=== PATIENT | male | born 1945 | race Caucasian/White ===

== ENCOUNTER 2018-01-24 10:54 | Inpatient (IN) | payer OTHER, MEDICARE ==
[~2018-01-24] VITALS: Ht 185.4 cm; Wt 83.7 kg
[~2018-01-24 10:54] MED LIST: ALBUTEROL2.5 MG/3 M INH/SOL; ASPIRIN81 M4 PO; BENICAR HCT 401 EAC1 PO; CENTRUM SILVER1 EAC1 PO; CITRACAL + D M1 EACH; COSAMIN ASU CA1 EAC1 PO; CRESTOR10 M1 PO; GABAPENTIN600 M1 PO; LOVAZA1 G1 PO; MAGNESIUM500 M2 PO; METANX CAPSULE1 EACH PO; METFORMIN HCL500 M3 PO; PANTOPRAZOLE SO40 M1 PO; PLAVIX75 M1 PO; PREDNISONE10 M2 PO; REQUIP4 MG PO; SPIRIVA RESPIMAT4 GM PO; TRAZODONE HCL50 M1 PO; ZITHROMAX250 M2 PO; ZOLPIDEM TARTRA10 M1 PO
[2018-01-24] MEDS ORDERED: VALSARTAN-HCTZ1 EAC3 PO (12:03)
[2018-01-24] MEDS ORDERED: FERROUS SULFAT325 M3 PO (12:05)
[2018-01-24] MEDS ORDERED: BACLOFEN10 M1 PO (12:06)
[2018-01-24 12:07] LABS: ABSOLUTE BASOPHIL COUNT 0 /CUMM (0.0-0.2); ABSOLUTE EOSINOPHIL COUNT 0 /CUMM (0.0-0.7); ABSOLUTE GRANULOCYTE CT 11.5 /CUMM (1.4-6.5); ABSOLUTE LYMPH COUNT 0.3 /CUMM (1.2-3.4); ABSOLUTE MONOCYTE COUNT 0.4 /CUMM (0.10-0.60); BASOPHIL % 0.1 % (0.0-2.0); EOSINOPHIL % 0 % (0-5); GRANULOCYTE % 94.8 % (42.2-75.2); HEMATOCRIT 34.2 % (42-52); MEAN CORPUSCULAR HGB 30.2 PG (27.0-31.0); MEAN CORPUSCULAR HGB CONC 33.4 G/DL (33.0-37.0); MEAN CORPUSCULAR VOLUME 90.3 FL (80.0-94.0); PLATELET COUNT 167 /CUMM (130-400); RED BLOOD CELL CT 3.78 /CUMM (4.70-6.10); WHITE BLOOD CELL COUNT 12.2 /CUMM (4.8-10.8)
[2018-01-24] MEDS ORDERED: CLONAZEPAM1 M2 PO (12:07)
[2018-01-24] MEDS ORDERED: TAMSULOSIN HCL0.4 M1 PO (12:07)
[2018-01-24] MEDS ORDERED: ATROVENT HFA12.9 GM PO (12:08)
[2018-01-24] MEDS ORDERED: SYMBICORT 16010.2 GM INH (12:08)
--- NOTE | 2018-01-24 12:22 | RADIOLOGY REPORT ---
EXAMINATION: XR CHEST CLINICAL INFORMATION: Pneumonia. Sent by walk-in COMPARISON: 07/09/2016 TECHNIQUE: 2 views of the chest were obtained. FINDINGS: There is right middle lobe airspace consolidation just inferior to the right minor fissure, superimposed on a background of diffuse coarse interstitial prominence, possibly chronic. Lungs are hyperexpanded with flattening of the diaphragms consistent with emphysema. No pleural effusion or pneumothorax. IMPRESSION: Right middle lobe consolidation consistent with pneumonia. Recommend follow-up after treatment to confirm resolution. Findings of emphysema and likely chronic bronchitis.
--- NOTE | 2018-01-24 13:01 | ED GENERAL ADULT ---
History of Present Illness General Chief Complaint: Upper Respiratory Sx/Fever Stated Complaint: SENT BY WALK IN FOR PNA Source: patient, family Exam Limitations: no limitations Allergies Coded Allergies: No Known Allergies (01/24/18) Reconcile Medications Albuterol Sulfate 2.5 MG/3 ML (0.083 %) VIAL.NEB 1 Vial INH/SHIVANI TID PRN copd Aspirin (Aspirin*) 81 MG TAB.CHEW 81 MG PO DAILY HEART (Reported) Baclofen 10 MG TABLET 1 TAB PO QPM MUSCLE SPASMS (Reported) Budesonide/Formoterol Fumarate (Symbicort 160-4.5 Mcg Inhaler) 160 MCG-4.5 MCG/ ACTUATION HFA.AER.AD 2 PUF INH BID BREATHING PROBLEMS (Reported) Clonazepam 1 MG TABLET 1 TAB PO BIDP PRN ANXIETY (Reported) Clopidogrel Bisulfate (Plavix) 75 MG TABLET 1 TAB PO DAILY HEART (Reported) Ferrous Sulfate 325 MG (65 MG IRON) TABLET 1 TAB PO DAILY IRON, VITAMIN ( Reported) Gabapentin 600 MG TABLET 1 TAB PO TID NEUROPATHY (Reported) Ipratropium Homer (Atrovent Hfa) 17 MCG/ACTUATION HFA.AER.AD 2 PUFF PO 4 TIMES/DAY BREATHING PROBLEMS (Reported) Metformin HCl 500 MG TABLET 500 MG PO BID BLOOD SUGAR (Reported) Pantoprazole Sodium 40 MG TABLET.DR 40 MG PO DAILY ACID REFLUX (Reported) Prednisone 10 MG TABLET 1 TAB PO AD copd On Take 07/11/16-07/13/16 40 MG 07/14/16-07/16/16 30 MG 07/17/16-07/19/16 20 MG 07/20/16-07/22/16 10 MG Then Stop Rosuvastatin Calcium (Crestor) 10 MG TABLET 10 MG PO 3XW CHOLESTEROL ( Reported) Tamsulosin HCl 0.4 MG CAP.ER.24H 1 CAP PO DAILY PROSTATE (Reported) Tiotropium Homer (Spiriva Respimat) 2.5 MCG/ACTUATION MIST.INHAL 1 PUFF PO DAILY PRN SHORTNESS OF BREATH (Reported) Valsartan/Hydrochlorothiazide (Valsartan-Hctz 320-25 MG Tab) 320 MG-25 MG TABLET 1 TAB PO DAILY HEART (Reported) Zolpidem Tartrate 10 MG TABLET 10 MG PO QPMP PRN SLEEP (Reported) Triage Note: PT TO ED FOR C/C OF SOB, PRODUCTIVE COUGH WITH GREEN SPUTUM, CHEST PAIN (MORE WITH COUGHING). PT DIAGNOSED WITH PNA AT WALK IN CLINIC BEFORE ARRIVAL. HYPOXIC IN TRIAGE 87-90% ON RA. TACHYCARDIC. PT ALSO REPORTS THAT HE HAS SWELLING TO GROIN AREA CHRONICALLY FROM A PREVIOUS PROCEDURE. Triage Nurses Notes Reviewed? 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 Was seen at a walk in earlier today and dx with PNA, sent to the ER for evaluation. On arrival pt is hypoxic to 87% on RA, improved to mid 90's on 3L NC. Denies fevers or sick contacts. Pt is currently visiting from [place]. (Violeta LEÓN,Danielle) Vital Signs & Intake/Output Vital Signs & Intake/Output Vital Signs Date Time Temp Pulse Resp B/P B/P Pulse O2 O2 Flow FiO2 Mean Ox Delivery Rate 01/27 0000 92 Nasal 4.0L Cannula 01/27 0000 98.4 114 22 150/80 92 Nasal 4.0L Cannula 01/26 2051 97.1 127 21 161/99 01/26 2000 97 Nasal 3.0L Cannula 01/26 2000 90 Nasal 3.0L Cannula 01/26 1710 93 Nasal 3.0L Cannula 01/26 1600 97 Nasal 3.0L Cannula 01/26 1600 97.5 116 23 128/70 98 Nasal 3.0L Cannula 01/26 1200 99 Nasal 3.0L Cannula 01/26 0936 118 135/72 01/26 0936 116 135/72 01/26 0850 96 Nasal 3.0L Cannula 01/26 0800 Nasal 3.0L Cannula 01/26 0800 97.3 118 22 118/60 98 Nasal 3.0L Cannula 01/26 0400 96 Nasal 3.0L Cannula ED Intake and Output 01/27 0000 01/26 1200 Intake Total 2547 343 Output Total 900 650 Balance 1647 -307 Intake, IV 1607 243 Intake, Oral 940 100 Output, Urine 900 650 Patient 165 lb Weight (Radha TOVAR,Александр Grover) Past History Travel History Traveled to [place] past 21 day No Medical History Any Pertinent Medical History? 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 rotator cuff tear, ankle injury Psychosocial History Who do you live with Spouse Services at Home None What is your primary language [place] Tobacco Use: Quit >30 days ago Family History Hx Contributory? No (Danielle Harrington) Review of Systems Review of Systems Constitutional: Reports: no symptoms. EENTM: Reports: no symptoms. Respiratory: Reports: see HPI. Cardiovascular: Reports: see HPI. GI: Reports: no symptoms. Genitourinary: Reports: no symptoms. Musculoskeletal: Reports: no symptoms. Skin: Reports: no symptoms. Neurological/Psychological: Reports: no symptoms. Hematologic/Endocrine: Reports: no symptoms. Immunologic/Allergic: Reports: no symptoms. All Other Systems: Reviewed and Negative (Danielle Harrington) Physical Exam Physical Exam General Appearance: well developed/nourished, no apparent distress, alert, awake Head: atraumatic, normal appearance Eyes: Bilateral: normal appearance. Ears, Nose, Throat: normal ENT inspection Neck: normal inspection Respiratory: rhonchi (right sided), no wheezes Cardiovascular: regular rate/rhythm Gastrointestinal: soft, non-tender, ecchymosis to bilateral flanks (pt reports from recent surgery), vertical linear surgical scar to right groin appears to be healing well, no purulent drainage or surrounding erythema. Extremities: normal inspection Neurologic/Psych: awake, alert, oriented x 3, normal gait, normal mood/affect Skin: intact, warm/dry Core Measures ACS in differential dx? Yes CVA/TIA Diagnosis: No Sepsis Present: No Sepsis Focused Exam Completed? No (Danielle Harrington) Progress Differential Diagnoses I considered the following diagnoses in my evaluation of the patient: [PNA vs respiratory failure vs ACS, low concern for PE] Initial ED EKG: rhythm (sinus tach), rate (120's), ST depression (V4 and V5, unchanged) (Violeta LEÓN,Danielle) Plan of Care: Orders Procedure Date/time Status ICU LAB BUNDLE 01/27 0500 Active CBC WITHOUT DIFFERENTIAL 01/27 0500 Active TROPONIN LEVEL 01/27 0200 Complete EKG 01/27 0200 Active TROPONIN LEVEL 01/26 2010 Complete EKG 01/26 2004 Active CBC WITHOUT DIFFERENTIAL 01/26 1400 Complete Lab Add-on Test 01/26 0924 Active LOWER RESPIRATORY CULTURE 01/26 09 Active PARTIAL THROMBOPLASTIN TIME 01/26 08 Complete TROPONIN LEVEL 01/26 06 Complete PRE-ALBUMIN 01/26 06 Complete THERAPIST ORDERS 01/26 UNK Complete Isolation 01/26 UNK Complete Hemoccult 01/26 UNK Active MISSING MEDICATION FORM 01/26 UNK Active Current Medications Sig/Casey Start time Last Medication Dose Stop Time Status Admin Zolpidem Tartrate 10 MG QPM PRN 01/27 0015 AC 01/27 (Ambien) 0023 Metoprolol Tartrate 12.5 MG BID 01/26 2100 AC 01/26 (Lopressor) 205 Enoxaparin Sodium 40 MG DAILY 01/26 1347 AC 01/26 (Lovenox) 1427 Magnesium Oxide 400 MG DAILY 01/26 0900 AC 01/26 (Mag-Ox) 0936 Melatonin 5 MG AT BEDTIME 01/25 2215 AC 01/26 (Melatonin) 205 Atorvastatin Calcium 20 MG 1700 01/25 1700 AC 01/26 (Lipitor) 1652 Ceftazidime 2,000 MG Q12H 01/25 1600 AC 01/26 (Fortaz) 1652 Vancomycin HCl 1,250 MG Q24H 01/25 1000 AC 01/26 Sodium Chloride 250 ML 1103 (Normal Saline 0.9%) Azithromycin 500 MG DAILY 01/25 0918 AC 01/26 (Zithromax) 0932 Sodium Chloride 250 ML (Normal Saline 0.9%) Tamsulosin HCl 0.4 MG DAILY 01/25 0900 AC 01/26 (Flomax) 0936 Insulin Aspart 0 TIDAC 01/25 0800 AC (NovoLOG) Sodium Chloride 1,000 ML Q8H 01/24 2345 AC 01/26 (Normal Saline 0.9%) 0938 Baclofen 10 MG QPM 07/13 2100 AC 01/26 (Lioresal 10MG 2050 Tablet) Budesonide/ 2 PUF BID 01/24 2100 AC 01/26 Formoterol Fumarate 2050 (Symbicort) Albuterol Sulfate 3 ML EVERY 4 HRS/AWAKE 01/25 2000 AC 01/26 (Proventil) 1955 Ipratropium Homer 2.5 ML EVERY 4 HRS/AWAKE 01/25 2000 AC 01/26 (Atrovent) 1955 Tiotropium Homer 1 PUF DAILY 01/24 171 AC 01/26 (Spiriva) 1015 Gabapentin 600 MG Q8 01/24 170 AC 01/26 (Neurontin) 213 Clopidogrel Bisulfate 75 MG DAILY 01/24 160 AC 01/26 (Plavix) 0936 Aspirin 81 MG DAILY 01/24 160 AC 01/26 (Aspirin) 0935 Acetaminophen 650 MG Q6PRN PRN 01/24 134 AC (Tylenol) Acetaminophen 1,000 MG Q6P PRN 01/24 1345 AC 01/25 (Ofirmev) 1856 N/A 1 UNIT (No Carrier) Morphine Sulfate 1 MG Q8P PRN 01/24 1345 AC 01/26 (MORPHINE SULFATE) 2011 Laboratory Tests 01/27/18 0130: Troponin I 0.63 *H 01/26/187: Troponin I 0.73 *H 01/26/181999: APTT Cancelled 01/26/18 1434: CBC w Diff NO MAN DIFF REQ, RBC 2.77 L, MCV 91.0, MCH 30.1, MCHC 33.0, RDW 18.6 H, MPV 10.1, Gran % 89.7 H, Lymphocytes % 4.8 L, Monocytes % 4.6, Eosinophils % 0.8, Basophils % 0.1, Absolute Granulocytes 10.9 H, Absolute Lymphocytes 0.6 L, Absolute Monocytes 0.6, Absolute Eosinophils 0.1, Absolute Basophils 0 01/26/18 0754: APTT 64 H 01/26/18 0600: Troponin I Cancelled 01/26/18 0600: Anion Gap 10, Estimated GFR > 60, Glucose 107 H, Calcium 7.3 L, Phosphorus 2.6 , Magnesium 1.9, Total Bilirubin 0.5, AST 31, ALT 45, Troponin I 0.70 *H, Albumin 2.6 L, Prealbumin 12.9 L, CBC w Diff NO MAN DIFF REQ, RBC 2.73 L, MCV 90.9, MCH 30.3, MCHC 33.3, RDW 19.7 H, MPV 9.3, Gran % 87.4 H, Lymphocytes % 5.8 L, Monocytes % 5.1, Eosinophils % 1.6, Basophils % 0.1, Absolute Granulocytes 10.2 H, Absolute Lymphocytes 0.7 L, Absolute Monocytes 0.6, Absolute Eosinophils 0.2, Absolute Basophils 0 Microbiology 01/26 1434 LOWER RESP: Respiratory Culture - RES 01/26 1434 LOWER RESP: Gram Stain - RES Pt febrile rectally, labs show leukocytosis to 12, CXR shows rigfht middle lobe PNA. Covered with ceftriaxone and azithromycin, lactic acid 2.5, BC's sent. EKG shows ST depressions in V3 and V4, unchanged from prior, trop elevated to 0.39. Discussed with cardiology, elevaterd troponin likely 2/2 demand ichemia from previous hypoxia, pt's CP is pleuritic and clinically correlates to his PNA location, low concern for ACS and therefore AC was held. Upon in person eval by cardiology decision was made to begin heparin. Discussed with hospitalist and will admit to tele. (Danielle Harrington) (Radha TOVAR,Александр Grover) Departure Departure Disposition: STILL A PATIENT Condition: Stable Clinical Impression Primary Impression: Pneumonia Secondary Impressions: Acute hypoxemic respiratory failure, NSTEMI (non-ST elevated myocardial infarction) Referrals: Patient Has No Primary Care Dr (PCP/Family) Departure Forms: Customer Survey General Discharge Information Admission Note Spoke With: Ignacio Sánchez MD Documentation of Exam: Documentation of any treatments & extenuating circumstances including Concerns Regarding Discharge (functional status, medication knowledge or non-compliance, living conditions, etc.) that warrant an admission rather than observation: [HD monitoring, tele monitoring, serial EKG's, serial trop's, IV anticoagulation, cardiology consult, supplemental oxygen, IV abx, f/u CXR's] (Danielle Harrington) PA/ST[facility] HAND Co-Sign Statement Statement: ED Attending supervision documentation- [X] I saw and evaluated the patient. I have also reviewed all the pertinent lab results and diagnostic results. I agree with the findings and the plan of care as documented in the PA's/ST[employer] HAND's documentation. Patient presents for evaluation of right-sided chest pain congested cough. Physical examination reveals an uncomfortable appearing gentleman with scattered rhonchi on lung examination. [] I have reviewed the ED Record and agree with the PA's/ST[facility] M[employer] HAND's documentation. [] Additions or exceptions (if any) to the PAs/ST[facility] HAND's note and plan are summarized below: [] (Radha TOVAR,Александр Gorver) Critical Care Note Critical Care Note Critical Care Time: 30-74 min (Violeta LEÓN,Danielle)
--- NOTE | 2018-01-24 13:40 | History & Physical ---
Jacob Hernandez 01/24/18 1340: General Information and HPI MD Statement: I have seen and personally examined ADOLFO SERRANO and documented this H&P. The patient is a 72 year old M who presented with a patient stated chief complaint of [shortness of breath with chest pain]. Source of Information: patient, family () Exam Limitations: no limitations History of Present Illness: Patient is a 72 year old male with history of COPD, PAD, Diabetes mellitus, HTN and hyperlipidemia who arrived to the ED complaining of shortness of breath, chest pain and cough. The patient began feeling short of breath 2 days ago after traveling by plane from [place] to visit family in [place]. His shortness of breath became progressively worse and upon experiencing severe, sharp, stabbing chest pain in his right chest, near the nipple, he sought treatment in the ED. Prior to traveling, the patient had recently been discharged from a hospital in [place], following "roto-rooting the arteries in my legs", which led to the complication of scrotal edema and varicocele and subsequent hospitalization. The patient also complained of a productive cough with "gunk coming up" at times in large amounts of mucus, but did not report fever or chills. The chest pain was worsening since arrival to the ED, and the pain increased upon inspiration. Allergies/Medications Allergies: Coded Allergies: No Known Allergies (01/24/18) Home Med list Albuterol Sulfate 2.5 MG/3 ML (0.083 %) VIAL.NEB 1 Vial INH/SHIVANI TID PRN copd Aspirin (Aspirin*) 81 MG TAB.CHEW 81 MG PO DAILY HEART (Reported) Baclofen 10 MG TABLET 1 TAB PO QPM MUSCLE SPASMS (Reported) Budesonide/Formoterol Fumarate (Symbicort 160-4.5 Mcg Inhaler) 160 MCG-4.5 MCG/ ACTUATION HFA.AER.AD 2 PUF INH BID BREATHING PROBLEMS (Reported) Clonazepam 1 MG TABLET 1 TAB PO BIDP PRN ANXIETY (Reported) Clopidogrel Bisulfate (Plavix) 75 MG TABLET 1 TAB PO DAILY HEART (Reported) Ferrous Sulfate 325 MG (65 MG IRON) TABLET 1 TAB PO DAILY IRON, VITAMIN ( Reported) Gabapentin 600 MG TABLET 1 TAB PO TID NEUROPATHY (Reported) Ipratropium [place] (Atrovent Hfa) 17 MCG/ACTUATION HFA.AER.AD 2 PUFF PO 4 TIMES/DAY BREATHING PROBLEMS (Reported) Metformin HCl 500 MG TABLET 500 MG PO BID BLOOD SUGAR (Reported) Pantoprazole Sodium 40 MG TABLET.DR 40 MG PO DAILY ACID REFLUX (Reported) Prednisone 10 MG TABLET 1 TAB PO AD copd On Take 07/11/16-07/13/16 40 MG 07/14/16-07/16/16 30 MG 07/17/16-07/19/16 20 MG 07/20/16-07/22/16 10 MG Then Stop Rosuvastatin Calcium (Crestor) 10 MG TABLET 10 MG PO 3XW CHOLESTEROL ( Reported) Tamsulosin HCl 0.4 MG CAP.ER.24H 1 CAP PO DAILY PROSTATE (Reported) Tiotropium [place] (Spiriva Respimat) 2.5 MCG/ACTUATION MIST.INHAL 1 PUFF PO DAILY PRN SHORTNESS OF BREATH (Reported) Valsartan/Hydrochlorothiazide (Valsartan-Hctz 320-25 MG Tab) 320 MG-25 MG TABLET 1 TAB PO DAILY HEART (Reported) Zolpidem Tartrate 10 MG TABLET 10 MG PO QPMP PRN SLEEP (Reported) Past History Travel History Traveled to [place] past 21 day No Medical History Neurological: NONE EENT: NONE Cardiovascular: hypertension, hyperlipidemia Respiratory: COPD Gastrointestinal: NONE Hepatic: NONE Renal: NONE Musculoskeletal: Restless Legs Syndrome, OA Psychiatric: NONE Endocrine: diabetes Blood Disorders: NONE Cancer(s): 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 rotator cuff tear, ankle injury Past Family/Social History Psychosocial History Services at Home: None Smoking Status: Former Smoker (QUIT 1 YEAR AGO) Functional Ability Ambulation: independent Review of Systems Review of Systems Constitutional: Denies: chills, diaphoresis. Cardiovascular: Reports: chest pain. Denies: edema, orthopena. Respiratory: Reports: cough, short of breath, sputum production. GI: Denies: abdominal pain, nausea, bloody stool, vomiting. Exam & Diagnostic Data Last 24 Hrs of Vital Signs/I&O Vital Signs Date Time Temp Pulse Resp B/P B/P Pulse O2 O2 Flow FiO2 Mean Ox Delivery Rate 01/24 2005 113 01/24 1845 Nasal 2.0L Cannula 01/24 1816 64 Nasal 2.0L Cannula 01/24 1728 101.6 01/24 1714 101.8 24 01/24 1704 98.8 126 24 104/56 94 Nasal 2.0L Cannula 01/24 1508 99.1 122 20 98/56 97 Nasal 2.0L Cannula 01/24 1352 102.8 01/24 1322 95 Nasal 3.0L Cannula 01/24 1259 96 Nasal 2.0L Cannula 01/24 1232 23 95 01/24 1224 99.5 122 22 108/69 91 Room Air Room Air 01/24 1110 98.5 124 20 117/53 89 Room Air Room Air Intake & Output 01/24 1600 01/24 0800 01/24 0000 Intake Total Output Total 140 Balance -140 Output, Urine 140 Patient 74.843 kg Weight Weight Reported by Patient Measurement Method Physical Exam General Appearance Alert, Oriented X3, Cooperative, Moderate Distress Skin Temp/Moisture Exam: Warm/Dry Sepsis Skin Exam (color): Normal for Ethnicity Neck Supple, No JVD Cardiovascular Normal S1, Normal S2, No Murmurs, TACHYCARDIC Lungs COARSE BREATH SOUNDS DIFFUSELY THROUGHOUT LUNG NOWAK Abdomen Soft, No Tenderness, DISCOLORATION OVERLYING BILATERAL FLANKS , SCAR NEAR THE RIGHT INGUINAL AREA Neurological Normal Speech Extremities HEMATOMAS ON BILATERAL THIGHS Sepsis Peripheral Pulse Location: Radial Sepsis Peripheral Pulse Exam: Normal Sepsis Cap Refill Exam: <2 Sec Reproductive (MALE) SCROTUM IS DISTENDED, DARK IN COLOR WITH RAW, ERYTHEMATOUS PATCHES ON EACH SIDE Rectal Guiac Negative, No Fissures, No Hemorrhoids Last 24 Hrs of Labs/Gualberto: Laboratory Tests 01/24/18 1800: pH 7.46 H, pCO2 38, pO2 79 L, HCO3 26, ABG O2 Sat (Measured) 93.0 L, P-50 ( Temp Corrected) Y, Carboxyhemoglobin 1 L, O2 Concentration % 2L, Temperature 101.6 H, O2 Delivery Method NC, Phlebotomy Draw Site RIGHT RADIAL 01/24/18 1730: Troponin I 0.78 *H 01/24/18 1730: Lactic Acid 2.0, D-Dimer High Sensitivty 813 H 01/24/18 1459: D-Dimer High Sensitivty Cancelled 01/24/18 1150: Anion Gap 13, Estimated GFR > 60, BUN/Creatinine Ratio 23.3, Glucose 102 H, Lactic Acid 2.5 H, Calcium 9.0, Total Bilirubin 1.0, Direct Bilirubin 0.4, AST 23, ALT 19 L, Alkaline Phosphatase 77, Troponin I 0.39 *H, Total Protein 6.5, Albumin 3.5, TSH 0.075 L, Free T4 1.11, PT 13.4 H, INR 1.23 H, APTT 30, CBC w Diff MAN DIFF ORDERED, RBC 3.78 L, MCV 90.3, MCH 30.2, MCHC 33.4, RDW 19.0 H, MPV 9.0, Gran % 94.8 H, Lymphocytes % 2.1 L, Monocytes % 3.0, Eosinophils % 0, Basophils % 0.1, Absolute Granulocytes 11.5 H, Segmented Neutrophils 80 H, Band Neutrophils 12 H, Absolute Lymphocytes 0.3 L, Lymphocytes 5 L, Monocytes 3, Absolute Monocytes 0.4, Absolute Eosinophils 0, Absolute Basophils 0, Poikilocytosis FEW, Basophilic Stippling RARE, Stomatocytes FEW Microbiology 01/24 192 URINE ROUT: Legionella Antigen - COMP 01/24 1920 URINE ROUT: Streptococcus pneumoniae Antigen (M - COMP 01/24 1621 URINE ROUT: Urine Culture - RECD 01/24 1603 LOWER RESP: Respiratory Culture - COLB 01/24 1603 LOWER RESP: Gram Stain - COLB 01/24 1340 BLOOD: Blood Culture - RECD 01/24 1150 BLOOD: Blood Culture - RECD Assessment/Plan Assessment: 72 year old male with history of COPD, HTN, hyperlipidemia, diabetes mellitus, presenting for shortness of breath and chest pain. Patient being treated for pneumonia, possibly gram-negative in origin due to recent hospitalization. 1. Sepsis --Possibe source presenting with clinical signs of pneumonia and CXR indicating right middle lobe consolidation --Blood cultures pending --Patient tachycardic, tachypneic, WBC's at 12.2 and febrile in the ED, meeting sepsis criteria --Fluid resuscitation as necessary to maintain perfusion 2. Elevated troponins --Patient also c/o chest pain --Serial troponins ordered, to follow-up --EKG --Heparin drip --Aspiring 81mg daily --Continue Lipitor 3. Pneumonia --Possbily healthcare acquired/gram-negative pneumonia to be considered with patient's history --Continue Ceftazidime and Docycycline, sputum culture --ABG and respiratory consult --Support patient with nasal cannula and O2 to keep sats > 90% 4. Diabetes mellitus --Insulin sliding scale and accucheck As Ranked By This Provider Problem List: 1. Sepsis 2. Pneumonia 3. COPD exacerbation 4. Elevated troponin Core Measures/Misc (03/31) Acute Coronary Syndrome ACS Diagnosis: No Congestive Heart Failure Congestive Heart Failure Diagnosis No Cerebrovascular Accident CVA/TIA Diagnosis: No VTE (View Protocol) VTE Risk Factors Age>40 No Mechanical VTE Prophylaxis d/t N/A MechProphylax Ordered No VTE Pharm Prophylaxis d/t NA PharmProphylax ordered Comment: Heparin GTT Sepsis (View protocol) Sepsis Present: Yes If YES complete Sepsis Event Note If YES complete Sepsis Event Note Charito Medina MDapna 01/24/18 1351: Core Measures/Misc (03/31) Sepsis (View protocol) If YES complete Sepsis Event Note If YES complete Sepsis Event Note Resident Review Statement Other Findings: 72-year-old gentleman with past medical history of hypertension, hyperlipidemia, restless leg syndrome, OA BPH, COPD, anxiety,----came to [place] ER with complaints of shortness of breath, cough with chest pain. Patient has already gone to the walk-in clinic who told him that he has pneumonia. Upon admission patient was hypoxic with a saturation of 87 at room air with tachycardia. Admission vitals temperature 98.5, pulse rate 124, respiratory rate 23, saturation 95 on 3 L of oxygen. Admission labs WBC 12.2, hemoglobin 11.4, platelet 167, band neutrophils 12, troponin-0.39, sodium 141, potassium 3.9, BUN 21, creatinine 0.9, bicarb-31, lactic acid 2.5 Chest x-ray Right middle lobe consolidation consistent with pneumonia. Recommend follow-up after treatment to confirm resolution. Findings of emphysema and likely chronic bronchitis. ED treatment CEFTAZIDIME 2 g, aspirin, normal saline bolus 500 mL, doxycycline On examination Patient conscious Oriented 3. Not in acute distress. 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 Sepsis secondary due to hospital-acquired pneumonia 2. Chest pain with positive troponin rule out ACS * Sepsis-secondary due to hospital acquired pneumonia. Patient got 1 dose of CEFTAzidime and doxycycline in ED. We will continue current management and reevaluate him in the a.m. * Patient has a recent travel history and immobilization secondary due to surgery last month. Given his shortness of breath would like to do d-dimer and ABG. If the d-dimer is high and ABG shows alkalosis if it is high we will take CTA. Patient is on 3 L of nasal oxygen. At home he does not use any oxygen for his COPD. His initial lactic acid is 2.5 and we will trend it. * Cardiology consult for elevated troponin and previous EKG of questionable atrial fibrillation. We will do serial troponin and EKG. we will obtain echocardiogram. We will obtain records from [place]. * Patient got 1 dose of antibiotic today. * Obtain blood cultures sputum culture, strep Legionella antigen * Patient had scrotal hematoma as a complication of his peripheral vascular disease surgery. We will do a scrotal ultrasound and place urology consult. 3:30 PM-spoke to Dr. Dudley over the phone regarding his scrotal hematoma/mass. The pubic suggested to do ultrasound of the scrotum and if negative advised to follow outpatient with urology. Until then scrotal elevation. Joselin TOVAR,[facility] 01/24/18 1649: Core Measures/Misc (03/31) Sepsis (View protocol) If YES complete Sepsis Event Note If YES complete Sepsis Event Note Attending MD Review Statement Attending Statement Attending MD Statement: examined this patient, discuss w/resident/PA/SNOW REMOVAL/PLOWING, agreed w/resident/PA/SNOW REMOVAL/PLOWING, discussed with family, reviewed EMR data (avail), discussed with nursing, amended to note Attending Assessment/Plan: 72yo male with history of COPD, non-oxygen dependentPeripheral Artery Disease and Diabetes Mellitus. Recently admitted to a hospital in [place] forlower extrimity angioplasty. Procedure was complicated by arterial laceration requiring subsequent surgery, COPD exacerbation, and pneumonia. He developed scrotal hematoma. Previous ekg from 2016 is suggestive of Afib but patient and deny an knowledge of this. He was brought in for evaluation due to progressive SOB. In the ED he was found to be febrile and tachy CXR isuggestive of a pneumonia. He was started on abx with coverage for Gram negative pathogens and MRSA given his recent hospitalization. On exam he is calm, A.Ox 3 and speaking in full sentences. Lungs sounds appears congested bilaterally. Heart rate is rapid. He has no peripheral edema but he does have significant scrotal edema whic he descibs as being much better than prior. He has eccymotic areas on the posterior aspect of the left lower thigh and bilateral lower flanks. Labs show leucocytosis and elevated tropinin level. EKG show sinus tachy. Problems 1. Sepsis 2. Pneumonia with concern for gram negative pathogens 3. Type II Myocardial Infarction likely due to demand mismatch caused by infection. 4. PAD 5. Dabetes Mellitus 6. Scrotal Swelling. Plan: - Admit to the in-pt service - Place on the telemetry unit. - Broad Spectrum antibiotic coverage with Ceftazidine and Doxy pending Culture reports. - Blood and Sputum Cultures - Case discussed with the cardiology service. Start on low dose beta-kaushal, heparin infusion and statin therapy. Trend cardiac enzymes and obtain echo. - Obtain records from [place] - Resume home insulin regimen. - Urology consultation. Scrotal packing ad elevation.
--- NOTE | 2018-01-24 16:01 | Cons- Cardiology ---
General Information and HPI Consulting Request Date of Consult: 01/24/18 Requested By: La Olivera MD Reason for Consult: Positive troponin I. Source of Information: patient, old records Exam Limitations: no limitations History of Present Illness: Mr. Andrew Tolentino is a 72-year-old male visiting from [place] with a long-standing history of tobacco use (dc'd 1 pack per day 50 years last year), COPD with previous exacerbation, previous pneumonia, hypertension, dyslipidemia, vascular disease (s/p "angioplasty" 12/26/2017 complicated by: artery laceration requiring subsequent surgery, COPD exacerbation, pneumonia, etc.), and possible previous atrial fibrillation without anticoagulation who we are asked to evaluate and help manage in regard to complaints of shortness of breath, borderline electrocardiograms, and positive troponin I. He states that he began feeling short of breath couple of days ago with an associated productive cough and that this got progressively worse to the point where he "could not breathe". He denies any Mr. Tolentino denies any chest discomfort, palpitations, orthopnea, paroxysmal nocturnal dyspnea, lower extremity edema, etc. He also denies any history of known coronary, valvular, dysrhythmic/conduction disease, or cardiomyopathy. Allergies/Medications Allergies: Coded Allergies: No Known Allergies (01/24/18) Home Med List: Albuterol Sulfate 2.5 MG/3 ML (0.083 %) VIAL.NEB 1 Vial INH/SHIVANI TID PRN copd Aspirin (Aspirin*) 81 MG TAB.CHEW 81 MG PO DAILY HEART (Reported) Baclofen 10 MG TABLET 1 TAB PO QPM MUSCLE SPASMS (Reported) Budesonide/Formoterol Fumarate (Symbicort 160-4.5 Mcg Inhaler) 160 MCG-4.5 MCG/ ACTUATION HFA.AER.AD 2 PUF INH BID BREATHING PROBLEMS (Reported) Clonazepam 1 MG TABLET 1 TAB PO BIDP PRN ANXIETY (Reported) Clopidogrel Bisulfate (Plavix) 75 MG TABLET 1 TAB PO DAILY HEART (Reported) Ferrous Sulfate 325 MG (65 MG IRON) TABLET 1 TAB PO DAILY IRON, VITAMIN ( Reported) Gabapentin 600 MG TABLET 1 TAB PO TID NEUROPATHY (Reported) Ipratropium [place] (Atrovent Hfa) 17 MCG/ACTUATION HFA.AER.AD 2 PUFF PO 4 TIMES/DAY BREATHING PROBLEMS (Reported) Metformin HCl 500 MG TABLET 500 MG PO BID BLOOD SUGAR (Reported) Pantoprazole Sodium 40 MG TABLET.DR 40 MG PO DAILY ACID REFLUX (Reported) Prednisone 10 MG TABLET 1 TAB PO AD copd On Take 07/11/16-07/13/16 40 MG 07/14/16-07/16/16 30 MG 07/17/16-07/19/16 20 MG 07/20/16-07/22/16 10 MG Then Stop Rosuvastatin Calcium (Crestor) 10 MG TABLET 10 MG PO 3XW CHOLESTEROL ( Reported) Tamsulosin HCl 0.4 MG CAP.ER.24H 1 CAP PO DAILY PROSTATE (Reported) Tiotropium [place] (Spiriva Respimat) 2.5 MCG/ACTUATION MIST.INHAL 1 PUFF PO DAILY PRN SHORTNESS OF BREATH (Reported) Valsartan/Hydrochlorothiazide (Valsartan-Hctz 320-25 MG Tab) 320 MG-25 MG TABLET 1 TAB PO DAILY HEART (Reported) Zolpidem Tartrate 10 MG TABLET 10 MG PO QPMP PRN SLEEP (Reported) Review of Systems Review of Systems: A 14 point system review was obtained and was noncontributory, other than as above. 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 compression fractures? rotator cuff tear, ankle injury, Repair lacerated artery LLE., LLE angioplasty., Right rotator cuff surgery, Right ankle surgery Psychosocial History Services at Home: None Smoking Status: Former Smoker ETOH Use: occasional use Illicit Drug Use: denies illicit drug use Functional Ability Ambulation: independent Exam & Diagnostic Data Vital Signs and I&O Vital Signs Date Time Temp Pulse Resp B/P B/P Pulse O2 O2 Flow FiO2 Mean Ox Delivery Rate 01/24 1508 99.1 122 20 98/56 97 Nasal 2.0L Cannula 01/24 1352 102.8 01/24 1322 95 Nasal 3.0L Cannula 01/24 1259 96 Nasal 2.0L Cannula 01/24 1232 23 95 01/24 1224 99.5 122 22 108/69 91 Room Air Room Air 01/24 1110 98.5 124 20 117/53 89 Room Air Room Air Intake & Output 01/24 1600 01/24 0800 01/24 0000 01/23 1600 01/23 0800 01/23 0000 Intake Total Output Total 140 Balance -140 Output, Urine 140 Patient 165 lb Weight Weight Reported by Patient Measurement Method Physical Exam: Well-developed, overweight elderly male in no acute distress. HEENT: Normocephalic, EOMI, moist mucous membranes. Neck: No JVD, no bruits. Lungs: Decreased breath sounds bilaterally and crackles on the right. Heart: S1, S2 with soft grade 1/6 systolic murmur. No gallop or rub. Abdomen: Soft, nontender, positive bowel sounds. Extremities: No edema. Labs/Gualberto Results: Laboratory Tests 01/24 1150 Chemistry Sodium (137 - 145 mmol/L) 141 Potassium (3.5 - 5.1 mmol/L) 3.9 Chloride (98 - 107 mmol/L) 97 L Carbon Dioxide (22 - 30 mmol/L) 31 H Anion Gap (5 - 16) 13 BUN (9 - 20 mg/dL) 21 H Creatinine (0.7 - 1.2 mg/dL) 0.9 Estimated GFR (>60 ml/min) > 60 BUN/Creatinine Ratio (7 - 25 %) 23.3 Glucose (65 - 99 mg/dL) 102 H Lactic Acid (0.7 - 2.1 mmol/L) 2.5 H Calcium (8.4 - 10.2 mg/dL) 9.0 Troponin I (<0.11 ng/ml) 0.39 *H TSH (0.270 - 4.200 uIU/mL) Pending Free T4 (0.78 - 2.44 ng/dL) Pending Hematology CBC w Diff MAN DIFF ORDERED WBC (4.8 - 10.8 /CUMM) 12.2 H RBC (4.70 - 6.10 /CUMM) 3.78 L Hgb (14.0 - 18.0 G/DL) 11.4 L Hct (42 - 52 %) 34.2 L MCV (80.0 - 94.0 FL) 90.3 MCH (27.0 - 31.0 PG) 30.2 MCHC (33.0 - 37.0 G/DL) 33.4 RDW (11.5 - 14.5 %) 19.0 H Plt Count (130 - 400 /CUMM) 167 MPV (7.4 - 10.4 FL) 9.0 Gran % (42.2 - 75.2 %) 94.8 H Lymphocytes % (20.5 - 51.1 %) 2.1 L Monocytes % (1.7 - 9.3 %) 3.0 Eosinophils % (0 - 5 %) 0 Basophils % (0.0 - 2.0 %) 0.1 Absolute Granulocytes (1.4 - 6.5 /CUMM) 11.5 H Segmented Neutrophils (42.2 - 75.2 %) 80 H Band Neutrophils (0.0 - 5.0 %) 12 H Absolute Lymphocytes (1.2 - 3.4 /CUMM) 0.3 L Lymphocytes (20.5 - 51.1 %) 5 L Monocytes (1.7 - 9.3 %) 3 Absolute Monocytes (0.10 - 0.60 /CUMM) 0.4 Absolute Eosinophils (0.0 - 0.7 /CUMM) 0 Absolute Basophils (0.0 - 0.2 /CUMM) 0 Poikilocytosis FEW Basophilic Stippling RARE Stomatocytes FEW Diagnostic Data EKG Results 01/24/2018: Sinus tachycardia, PAC, nondiagnostic ST segment depression in diffuse leads, cannot exclude ischemia. No significant change when compared to tracing performed earlier on 01/24/2018. CXR Results 01/24/2018: Right middle lobe consolidation consistent with pneumonia. Recommend follow-up after treatment to confirm resolution. Assessment/Plan Assessment/Plan [id number] w/ hx long-standing tob use (dc'd 1 ppd 50 yrs in 2017), COPD w/ previous exacerbations, previous PNA, HTN, HLD, vasc dz (s/p "angioplasty" 12/26 complicated by: arterial laceration req subsequent surgery, COPD exacerbation, PNA, etc.), & possible previous AF w/o AC who we are asked to evaluate and help manage in regard to c/o SOB, borderline ECGs, CXR c/w PNA, & modestly positive troponin I. Suspect that the positive troponin I is on the basis of a type II MN 2/2 increased oxygen demand or decreased oxygen supply that has been described with: coronary endothelial dysfunction, coronary spasm, coronary embolus, tachy/ bradycardia arrhythmias, anemia, respiratory failure, HTN, hypotension, etc. However, he does have risk equivalents (vasc dz, DM) and multiple RFs for CAD ( HTN, HLD, etc.) be reasonable placing him on telemetry to rule out an acute coronary syndrome. Recommendations: * Admit to telemetry, follow-up troponins, follow-up ECGs * Continue to treat pneumonia with antimicrobial therapy, TRC/oxygen, steroids, etc. * Echocardiogram to assess left ventricular systolic/diastolic function, left ventricular wall motion, right ventricular function, atrial size, estimated PA systolic pressure, etc. * Reasonable to place on IV heparin for 48 hours or longer if he develops chest discomfort, electrocardiographic changes, etc. * Continue antiplatelets, statin, angiotensin receptor kaushal, etc. * Consider low-dose beta-kaushal to help control heart rate. * Hold diuretics for the short-term. * DVT prophylaxis. Further recommendation will follow, Thank you. Consult Acknowledgment - Thank you for your consult request.
[2018-01-24 16:27] LABS: PT 13.4 SEC (9.4-12.5); PTT 30 SEC (25-37)
--- NOTE | 2018-01-24 16:32 | Sepsis Event Note ---
Sepsis Event Note Severe Sepsis Severe Sepsis Present: No Septic Shock Septic Shock Present: No Sepsis Focused Exam Sepsis Cardiac Exam: Tachycardia Sepsis Resp Exam: [place] Sepsis Cap Refill Exam: <2 Sec Sepsis Peripheral Pulse Exam: Normal Sepsis Peripheral Pulse Location: Radial Sepsis Skin Exam (color): Normal for Ethnicity Skin Temp/Moisture Exam: Warm/Dry
--- NOTE | 2018-01-24 16:50 | Admission Certification ---
Admission Certification Certification Statement - As attending physician, I certify that at the time of - admission, based on clinical presentation, severity of - symptoms, need for further diagnostic testing and - therapeutic interventions, and risk of adverse outcomes - without in-hospital treatment, in my clinical assessment, - this patient requires an acute hospital stay for a minimum - of two nights or longer. I have also considered psychsocial - factors such as support system, advanced age, financial - issues, cognitive issues, and failed out-patient treatments, - past re-admission history, safety of patient, and lack of - compliance as applicable. Specific rationale supporting this admission is: Hospitalization is required for measurement of his sepsis.
[2018-01-24 17:04] VITALS: BP 104/56
--- NOTE | 2018-01-24 18:31 | ULTRASOUND REPORT ---
EXAMINATION: US SCROTUM CLINICAL INFORMATION: Swelling and pain. Presumptive diagnosis: Scrotal mass COMPARISON: None TECHNIQUE: A sonogram of the scrotum was performed assessing smith-scale appearance and color Doppler flow. Spectral analysis and Doppler interrogation was performed. FINDINGS: Within the midline, there is a large heterogeneous, hypoechoic structure measuring roughly 10 x 8.5 x 6.5 cm, most consistent with a large hematoma. This occupies much of the scrotum. RIGHT: Right testicle measures 3.5 x 1.7 x 2.9 cm, volume 12.3 mL. Parenchymal echotexture is normal. No focal testicular parenchymal lesions are visualized. Normal symmetric intratesticular flow is visualized. Right epididymal head is normal in size. No right hydrocele or varicocele is seen. LEFT: Left testicle measures 4.5 x 1.4 x 2.6 cm, volume 11.6 mL. Parenchymal echotexture is normal. No focal testicular parenchymal lesions are visualized. Normal symmetric intratesticular flow is visualized. Small 4 mm anechoic, simple cystic focus in the left testicle is of doubtful clinical significance. Left epididymal head is normal in size. No left hydrocele is seen.. A varicocele is noted with venous diameter of up to 4 mm. IMPRESSION: 1. Large scrotal hematoma. 2. Left-sided varicocele. No acute testicular or epididymal abnormalities.
[2018-01-24 23:00] VITALS: BP 92/48
--- NOTE | 2018-01-24 23:11 | Proc Note Internal Medicine ---
Medicine Procedure Procedure Date: 01/24/18 Medical Procedure(s): central venous cath place Pre-Operative Diagnosis: Hypotension Post-Operative Diagnosis: As Above Estimated Blood Loss: less than 50ml Anesthesia: local monitored anesthesi Procedure Findings: Procedure: R IJ tlc placement via ultrasound guidance Consent obtained from patient for emergent need for IV pressors Patient prepped and draped in sterile fashion. Ultrasound used to isolate major vessels in the neck, which revealed a large, compressible internal jugular vein. Lidocaine in sterile kit used to infiltrate area of neck where IJ was isolated, and triple lumen catheter was advanced. All three ports withdrew venous blood and easily flushed as well. TLC anchored with sutures, and dressed appropriately. All sharps were accounted for, and disposed in sharps container. Portable chest xray ordered for placement and to rule out pneumothorax
--- NOTE | 2018-01-24 23:11 | Event Note ---
Event Note Event Note: Situation: Patient was found to be hypotensive in 60s by doppler Background: Patient is a 72 yo M with PMH of COPD, PAD, Diabetes mellitus, HTN and hyperlipidemia who arrived to the ED complaining of shortness of breath, chest pain and cough. His troponins were found to be positive and currently trending up. A/R: * Patient was transferred to the ICU. * Started on IV NS bolus * Started on peripheral IV Phenylephrine * TLC was placed in the meantime.
--- NOTE | 2018-01-24 23:44 | RADIOLOGY REPORT ---
EXAMINATION: XR PORTABLE CHEST CLINICAL INFORMATION: Confirmation of triple-lumen catheter COMPARISON: 01/24/2018 TECHNIQUE: Portable frontal view of the chest was obtained. FINDINGS: Right internal jugular central venous catheter terminates over the mid SVC. Cardiac leads overlie the chest. The lungs are well expanded. There is increased right basilar airspace opacity. Increased hazy retrocardiac opacity. No definite pleural effusion. No pneumothorax. The cardiomediastinal silhouette is unchanged. Surgical anchors in the right humeral head. IMPRESSION: 1. Right internal jugular central venous catheter terminates over the mid SVC. No pneumothorax. 2. The appearance of an increased density at the right lower lung may be in part artifactual given different positioning of the patient. The prior study demonstrated a prominent right middle lobe consolidation. This likely corresponds to that finding. Similarly, the increased hazy left basilar opacity may be in part artifactual given differences in positioning.
[2018-01-25 00:58] LABS: PTT 45 SEC (25-37)
--- NOTE | 2018-01-25 02:05 | CT SCAN REPORT ---
STUDY PERFORMED: CTA OF THE CHEST WITH AND WITHOUT CONTRAST CLINICAL INFORMATION: Chest pain radiating to the back. DESCRIPTION: Initial noncontrast CT of the chest was performed. Contrast timing was performed at the level of the distal descending thoracic aorta. Subsequently, arterial phase multidetector volumetric imaging was performed through the chest following the administration of 95 mL Optiray 320 intravenous contrast. No contrast reaction reported Sagittal and coronal reformatted images were obtained on the technologist workstation. Three-dimensional MIP reformatted imaging was performed and reviewed. Total exam dose-length product 1029 mGy-cm COMPARISON: Radiograph 01/24/2018 FINDINGS: Vascular: 1. Calcifications at the aortic valve. Coronary artery calcifications. Normal origins of the main coronary arteries. 2. The ascending thoracic aorta is normal in course and caliber without dissection. 3. The aortic arch is normal in course and caliber without dissection. Normal 3 vessel branching configuration. The great vessel origins are widely patent. 4. The descending thoracic aorta is normal in course and caliber without dissection. The visualized abdominal aorta is normal in course and caliber without dissection. 5. The origins of the celiac axis and superior mesenteric artery are widely patent. Renal artery origins are widely patent, with at least 2 left renal arteries present. 6. No central or lobar pulmonary embolism. Nonvascular: The central airways are patent. There is a dense right middle lobe consolidation with air bronchograms. Additional minimal patchy opacity is seen at both lower lobes dependently. Bronchial wall thickening present. There is centrilobular and paraseptal emphysema. No pneumothorax. Trace right pleural effusion. The heart is of normal size. No pericardial effusion. Prominent right paratracheal lymph node, measuring 1.4 cm. No axillary lymphadenopathy. No chest wall mass. Perinephric stranding is seen bilaterally. Right renal cyst. The visualized portion of the upper abdomen is otherwise unremarkable. OSSEOUS STRUCTURES: No acute or suspicious osseous abnormality. There is mild height loss of the T8 vertebral body, although this does not appear acute. Slight height loss of the T11 vertebral body as well. IMPRESSION: 1. No aortic dissection. 2. Multifocal areas of consolidation, greatest in the right middle lobe with air bronchograms. This is suggestive of pneumonia. Follow-up to resolution. Prominent right paratracheal lymph node is likely reactive.
[2018-01-25 06:16] LABS: ABSOLUTE BASOPHIL COUNT 0 /CUMM (0.0-0.2); ABSOLUTE EOSINOPHIL COUNT 0 /CUMM (0.0-0.7); EOSINOPHIL % 0.1 % (0-5); MEAN CORPUSCULAR HGB 30.1 PG (27.0-31.0)
[2018-01-25 06:25] LABS: ABSOLUTE GRANULOCYTE CT 15.4 /CUMM (1.4-6.5); ABSOLUTE LYMPH COUNT 1.1 /CUMM (1.2-3.4); ABSOLUTE MONOCYTE COUNT 1.2 /CUMM (0.10-0.60); BASOPHIL % 0.1 % (0.0-2.0); GRANULOCYTE % 86.8 % (42.2-75.2); MEAN CORPUSCULAR VOLUME 91.2 FL (80.0-94.0); MEAN PLATELET VOLUME 9.1 FL (7.4-10.4); PLATELET COUNT 150 /CUMM (130-400); RBC DISTRIBUTION WIDTH 19.9 % (11.5-14.5); RED BLOOD CELL CT 3.02 /CUMM (4.70-6.10); WHITE BLOOD CELL COUNT 17.7 /CUMM (4.8-10.8)
[2018-01-25 06:30] LABS: HEMATOCRIT 27.5 % (42-52)
[2018-01-25 08:00] VITALS: BP 116/57
--- NOTE | 2018-01-25 08:22 | Cons- CRCU ---
Tres Poloses 01/25/18 0822: General Information and HPI Consulting Request Date of Consult: 01/25/18 History of Present Illness: Mr. Tolentino is a 72 y/o M with a significant PMH of COPD, PAD, DM, HTN and HLD who arrived to the ED complaining of shortness of breath, chest pain and cough. Of note the pt has a prior hospitalization in [place] for lower extremity angioplasty with a complicated course of large scrotal hematoma and left varicocele. On the ED he was found to be febrile, tachycardic, tachypneic with WBC of 12.2 and a CXR that showed R lobe consolidation. A CTA showed no evidence of ao dissection. Pt was admitted to the telemetry unit and pancultured on 01/24 for management of sepsis and pneumonia of likely gram negative etiology due to recent hospitalization. That same afternoon pt was found to be hypotensive with SBP in the 60s. A TLC was placed and pt was transferred to the ICU for management of septic shock now on levophed. Allergies/Medications Allergies: Coded Allergies: No Known Allergies (01/24/18) Home Med List: Albuterol Sulfate 2.5 MG/3 ML (0.083 %) VIAL.NEB 1 Vial INH/SHIVANI TID PRN copd Aspirin (Aspirin*) 81 MG TAB.CHEW 81 MG PO DAILY HEART (Reported) Baclofen 10 MG TABLET 1 TAB PO QPM MUSCLE SPASMS (Reported) Budesonide/Formoterol Fumarate (Symbicort 160-4.5 Mcg Inhaler) 160 MCG-4.5 MCG/ ACTUATION HFA.AER.AD 2 PUF INH BID BREATHING PROBLEMS (Reported) Clonazepam 1 MG TABLET 1 TAB PO BIDP PRN ANXIETY (Reported) Clopidogrel Bisulfate (Plavix) 75 MG TABLET 1 TAB PO DAILY HEART (Reported) Ferrous Sulfate 325 MG (65 MG IRON) TABLET 1 TAB PO DAILY IRON, VITAMIN ( Reported) Gabapentin 600 MG TABLET 1 TAB PO TID NEUROPATHY (Reported) Ipratropium [place] (Atrovent Hfa) 17 MCG/ACTUATION HFA.AER.AD 2 PUFF PO 4 TIMES/DAY BREATHING PROBLEMS (Reported) Metformin HCl 500 MG TABLET 500 MG PO BID BLOOD SUGAR (Reported) Pantoprazole Sodium 40 MG TABLET.DR 40 MG PO DAILY ACID REFLUX (Reported) Prednisone 10 MG TABLET 1 TAB PO AD copd On Take 07/11/16-07/13/16 40 MG 07/14/16-07/16/16 30 MG 07/17/16-07/19/16 20 MG 07/20/16-07/22/16 10 MG Then Stop Rosuvastatin Calcium (Crestor) 10 MG TABLET 10 MG PO 3XW CHOLESTEROL ( Reported) Tamsulosin HCl 0.4 MG CAP.ER.24H 1 CAP PO DAILY PROSTATE (Reported) Tiotropium [place] (Spiriva Respimat) 2.5 MCG/ACTUATION MIST.INHAL 1 PUFF PO DAILY PRN SHORTNESS OF BREATH (Reported) Valsartan/Hydrochlorothiazide (Valsartan-Hctz 320-25 MG Tab) 320 MG-25 MG TABLET 1 TAB PO DAILY HEART (Reported) Zolpidem Tartrate 10 MG TABLET 10 MG PO QPMP PRN SLEEP (Reported) Review of Systems Review of Systems Constitutional: Reports: diaphoresis, fever, malaise. EENTM: Denies: no symptoms. Cardiovascular: Reports: chest pain. Respiratory: Reports: cough, short of breath. GI: Denies: no symptoms. Past History Travel History Traveled to [place] past 21 day No Medical History Blood Transfusion Hx: Yes Neurological: NONE EENT: NONE Cardiovascular: hypertension, hyperlipidemia, PVD Respiratory: COPD, pneumonia Gastrointestinal: NONE Hepatic: NONE Renal: NONE Musculoskeletal: Restless Legs Syndrome, OA Psychiatric: NONE Endocrine: diabetes Blood Disorders: NONE Cancer(s): basal cell carcinoma, colon/rectal cancer, LAST SEEN ONOCOLOGIST +5 EDGE FINISHER/Reproductive: NONE Surgical History Surgical History: appendectomy, back surgery x 3, last done 1 year ago, for compression fractures rotator cuff tear, ankle injury Repair lacerated artery LLE. LLE angioplasty. Right rotator cuff surgery Right ankle surgery Psychosocial History Where Do You Live? Home Services at Home: None Smoking Status: Former Smoker (QUIT 1 YEAR AGO) ETOH Use: occasional use Illicit Drug Use: denies illicit drug use Functional Ability Ambulation: independent Exam & Diagnostic Data Last 24 Hrs of Vital Signs/I&O Microbiology Date/Time Procedure - Status Source Growth 01/25 0615 Surveillance Culture - RECD GI 01/25 0559 Surveillance Culture - RECD UPPER RESP 01/24 1920 Legionella Antigen - COMP URINE ROUT 01/24 1920 Streptococcus pneumoniae Antigen (M - COMP URINE ROUT 01/24 1621 Urine Culture - RES URINE ROUT 01/24 1603 Respiratory Culture - CAN LOWER RESP Cancelled: SPECIMEN NOT RECEIVED IN LABORATORY 01/24 1603 Gram Stain - CAN LOWER RESP Cancelled: SPECIMEN NOT RECEIVED IN LABORATORY 01/24 1340 Blood Culture - RES BLOOD 01/24 1150 Blood Culture - RES BLOOD Vital Signs Date Time Temp Pulse Resp B/P B/P Pulse O2 O2 Flow FiO2 Mean Ox Delivery Rate 01/25 1200 Nasal 3.0L Cannula 01/25 1134 98 Nasal 2.0L Cannula 01/25 0939 90 125/64 01/25 0939 92 125/64 01/25 0800 Nasal 3.0L Cannula 01/25 0800 97.8 83 21 116/57 97 Nasal 3.0L Cannula 01/25 0400 97 Nasal 3.0L Cannula 01/25 0000 96 Nasal 3.0L Cannula 01/24 2300 97.6 96 27 92/48 95 Nasal 3.0L Cannula 01/24 2005 113 01/24 1845 Nasal 2.0L Cannula 01/24 1816 64 Nasal 2.0L Cannula 01/24 1728 101.6 01/24 1714 101.8 24 01/24 1704 98.8 126 24 104/56 94 Nasal 2.0L Cannula Intake & Output 01/25 1600 01/25 0800 01/25 0000 Intake Total 2173 2732 700 Output Total 550 125 175 Balance 1623 2607 525 Intake, IV 1453 2432 500 Intake, Oral 720 300 200 Number 0 Bowel Movements Output, Urine 550 125 175 Patient 165 lb 174 lb Weight Weight Bed scale Measurement Method Physical Exam General Appearance: well developed/nourished, no apparent distress, alert, awake , comfortable Head: atraumatic, normal appearance Neck: normal inspection, supple Respiratory: chest non-tender, no respiratory distress, rhonchi, wheezing Cardiovascular: regular rate/rhythm, edema Gastrointestinal: normal bowel sounds, soft, non-tender, no organomegaly Extremities: normal inspection, normal capillary refill, pedal edema Neurologic/Psych: no motor/sensory deficits, awake, alert, oriented x 3 Cranial Nerves: normal hearing, normal speech Skin: intact, normal color Last 48 Hrs of Labs/Gualberto: Laboratory Tests 01/25/18 1620: APTT Pending 01/25/18 1400: Troponin I Cancelled 01/25/18 1200: Troponin I 1.42 *H 01/25/18 0815: APTT 51 H 01/25/18 0555: Troponin I 2.04 *H 01/25/18 0555: Anion Gap 11, Estimated GFR 50 L, Glucose 103 H, Calcium 7.7 L, Phosphorus 4.7 H, Magnesium 1.6, Total Bilirubin 1.0, AST 38, ALT 32, Albumin 2.8 L, Triglycerides 116, Cholesterol 101, LDL Cholesterol, Calc 41 L, HDL Cholesterol 37 L, Cholesterol/HDL Ratio 3, CBC w Diff MAN DIFF ORDERED, RBC 3.02 L, MCV 91.2, MCH 30.1, MCHC 33.0, RDW 19.9 H, MPV 9.1, Gran % 86.8 H, Lymphocytes % 6.4 L, Monocytes % 6.6, Eosinophils % 0.1, Basophils % 0.1, Absolute Granulocytes 15.4 H, Segmented Neutrophils 70, Band Neutrophils 11 H, Absolute Lymphocytes 1.1 L, Lymphocytes 10 L, Monocytes 5, Absolute Monocytes 1.2 H, Eosinophils 1, Absolute Eosinophils 0, Absolute Basophils 0, Metamyelocytes 3 H , Platelet Estimate ADEQUATE, Polychromasia 1+ 01/25/18 0010: Troponin I 1.92 *H 01/24/18 1800: pH 7.46 H, pCO2 38, pO2 79 L, HCO3 26, ABG O2 Sat (Measured) 93.0 L, P-50 ( Temp Corrected) Y, Carboxyhemoglobin 1 L, O2 Concentration % 2L, Temperature 101.6 H, O2 Delivery Method NC, Phlebotomy Draw Site RIGHT RADIAL 01/24/18 1730: Troponin I 0.78 *H 01/24/18 1730: Lactic Acid 2.0, D-Dimer High Sensitivty 813 H 01/24/18 1713: Lactic Acid Cancelled 01/24/18 1459: D-Dimer High Sensitivty Cancelled 01/24/18 1150: Anion Gap 13, Estimated GFR > 60, BUN/Creatinine Ratio 23.3, Glucose 102 H, Lactic Acid 2.5 H, Calcium 9.0, Total Bilirubin 1.0, Direct Bilirubin 0.4, AST 23, ALT 19 L, Alkaline Phosphatase 77, Troponin I 0.39 *H, Total Protein 6.5, Albumin 3.5, TSH 0.075 L, Free T4 1.11, PT 13.4 H, INR 1.23 H, APTT 30, CBC w Diff MAN DIFF ORDERED, RBC 3.78 L, MCV 90.3, MCH 30.2, MCHC 33.4, RDW 19.0 H, MPV 9.0, Gran % 94.8 H, Lymphocytes % 2.1 L, Monocytes % 3.0, Eosinophils % 0, Basophils % 0.1, Absolute Granulocytes 11.5 H, Segmented Neutrophils 80 H, Band Neutrophils 12 H, Absolute Lymphocytes 0.3 L, Lymphocytes 5 L, Monocytes 3, Absolute Monocytes 0.4, Absolute Eosinophils 0, Absolute Basophils 0, Poikilocytosis FEW, Basophilic Stippling RARE, Stomatocytes FEW 01/24/18 0010: APTT 45 H Microbiology 01/25 1920 URINE ROUT: Legionella Antigen - COMP 01/25 1920 URINE ROUT: Streptococcus pneumoniae Antigen (M - COMP Diagnostic Data CXR Results 01/24 EXAM TYPE: RAD - XRY-PORTABLE CHEST XRAY EXAMINATION: XR PORTABLE CHEST CLINICAL INFORMATION: Confirmation of triple-lumen catheter COMPARISON: 01/24/2018 TECHNIQUE: Portable frontal view of the chest was obtained. FINDINGS: Right internal jugular central venous catheter terminates over the mid SVC. Cardiac leads overlie the chest. The lungs are well expanded. There is increased right basilar airspace opacity. Increased hazy retrocardiac opacity. No definite pleural effusion. No pneumothorax. The cardiomediastinal silhouette is unchanged. Surgical anchors in the right humeral head. IMPRESSION: 1. Right internal jugular central venous catheter terminates over the mid SVC. No pneumothorax. 2. The appearance of an increased density at the right lower lung may be in part artifactual given different positioning of the patient. The prior study demonstrated a prominent right middle lobe consolidation. This likely corresponds to that finding. Similarly, the increased hazy left basilar opacity may be in part artifactual given differences in positioning. Assessment/Plan CRCU Impression/Plan: Mr. Tolentino is a 72 y/o M with a significant PMH of COPD, PAD, DM, HTN and HLD who arrived to the ED complaining of shortness of breath, chest pain and productive cough. Of note the pt has a prior hospitalization in [place] for lower extremity angioplasty. On the ED he was found to be febrile, tachycardic, tachypneic with WBC of 12.2 and a CXR that showed R lobe consolidation. Pt was admitted to the telemetry unit on 01/24 for management of sepsis and pneumonia of likely gram negative etiology due to recent hospitalization. That same afternoon pt was found to be hypotensive with SBP in the 60s. A TLC was placed and pt was transferred to the ICU for management of septic shock now on levophed. Pt is afebrile, with MAP>65 with good urine output on fluids. IMPRESSIONS Septic shock 2/2 hospital acquired pneumonia Chest Pain with positive troponins AECOPD Scrotal Hematoma with varicocele H/o DM, H/o Restless Leg Syndrome, on baclofen Septic shock 2/2 hospital acquired pneumonia/AECOPD Patient with a clinical picture of sepsis on arrival to ED with leukocytosis, tachypnea, tachycardia. CXR showed R Lobe consolidation, and with a recent hospitalization is concerning for HAP by gram negative organisms. His BP is currently maintaining over 100/60, with a MAP>65 on levophed alone and fluids. We will continue to bolus as necessary to mantain adequate CVP. His presentation is also concerning for acute exacerbation of his COPD with increase in purulent sputum recently - broad spectrum antibiotic coverage was started with ceftazidime, vancomycin and azithromycin pending culture results. Will adjust as needed. -NS @ 125 cc/hr, bolus as needed -Strict I/Os -Vancomycin, ceftazidime and azithromycin pending culture results -f/u cultures -on levophed, titrate to maintain SBP>90 -continue inhalers Chest pain with positive troponins Pt c/o chest pain on admit. Troponin trended up on admit, now slowly decreasing 2.04->1.42 with no significant EKG changes. Will continue to trend to r/o ACS. In this septic patient, a type II [place] picture is likely (supply-demand mismatch). Cardiology is following and an echo was ordered to assess cardiac function. 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 -Continue trending troponin -f/u cardio recommendations -EKG in the am -f/u echo -continue ASA/Plavix/Heparin gtt Scrotal Edema with Varicocele As per pt, recent hospitalization for lower extremity angioplasty was complicated with appearance of large scrotal hematoma and left varicocele. -Continue with scrotal elevation DM Pt's glucose has been controlled, with latest bedside readings of 90-130s. -Continue insulin regimen FULL CODE DVT PPX: PHARM, MECHANICAL Consistent Carbohydrate 1 Problem List: 1. COPD exacerbation 2. Sepsis 3. Elevated troponin Consult Acknowledgment - Thank you for your consult request. Antoinette Troy MD 01/25/18 0854: General Information and HPI Consulting Request Date of Consult: 01/25/18 Requested By: Dr. Baker Reason for Consult: Hypotension, pressor therapy, chest pain, pneumonia. The patient needs ICU monitoring and treatment for septic shock. Source of Information: patient, old records Exam Limitations: clinical condition, confusion Assessment/Plan CRCU Other Findings/Comments: I have personally seen and examined the patient and agree with the housestaff's assessment and plan as detailed above. Briefly, the patient is a 72-year-old male, who was admitted on 01/24/2018 with complaints of increased shortness of breath and chest pain. He is accompanied a past medical history including COPD, PAD, diabetes, hypertension and hyperlipidemia. The patient had increased shortness of breath for 2 days after traveling by plane from [place] to visit his family in [place]. The patient explained having a productive cough and expectoration of large amounts of mucus. He had no fever or chills however has noted to be febrile during his hospitalization with a fever greater than 101. The patient also recently was discharged from hospital in [place] after lower extremity vascular surgery which led to the complication of scrotal edema, varicocele and subsequent hospitalization. Chest x-ray demonstrated right middle lobe consolidation consistent with pneumonia. Testicular ultrasound showed large scrotal hematoma and left-sided varicocele. The patient was pancultured, and admitted to the telemetry floor for pneumonia noting he was treated with broad-spectrum antibiotics. The patient became hypotensive overnight and was transferred to the critical care unit for pressor therapy. He underwent a CT angiogram that failed to demonstrate any evidence of aortic dissection. There are multifocal areas of consolidation greatest in the right middle lobe with air bronchograms suggestive of pneumonia. Urine for Legionella and strep pneumo were negative. He is also being treated for an acute exacerbation of COPD. In the ICU, the patient is awake and oriented to person and place. He however is intermittently confused. He appears comfortable without significant distress or tachypnea. He remains on a heparin drip for chest pain. He continues on Delroy-Synephrine to maintain his systolic blood pressure greater than 90 mmHg. The patient is receiving normal saline with good urine output. There is no history of heart failure or evidence of CHF on chest x-ray. Impression: 1. Septic shock secondary to hospital-acquired pneumonia. 2. Chest pain with positive troponins, rule out acute coronary syndrome. 3. Scrotal hematoma with varicocele in the setting of recent vascular surgery. 4. Acute exacerbation of COPD. 5. Possible history of atrial fibrillation in the past. 6. Diabetes mellitus. 7. Peripheral artery disease, status post recent vascular surgery resulting in significant hematomas. Plan: * Sepsis bundle/protocol being followed. * Follow-up culture data. * Treat with vancomycin, ceftazidime and azithromycin pending culture results. * Monitor CVP's. * Will need to adjust IV fluids based on CVP. We will bolus as necessary. * Continue normal saline at 125 mL/h for now. * Monitor urine output, strict I's and O's. * Continue Delroy-Synephrine however attempt to titrate down for systolic blood pressure greater than 90 mmHg. Will titrate this up in Delroy-Synephrine down as blood pressure tolerates. * Add Levophed at micrograms per minute. Titrate up to maintain systolic blood pressure greater than 90 mmHg. * Hold off on diuretics for now. * [facility] consult for nebs and pulmonary toilet, continue inhalers (Symbicort and Spiriva). * Continue heparin drip, aspirin and Plavix. * Await cardiology input. * Check echocardiogram. * Continue with scrotal elevation. * Await urology input. * DVT prophylaxis at all times. * The patient is critically ill and needs close monitoring. Continue to follow in the critical care unit. I discussed the plan of care with the housestaff and nursing. I asked him to contact me if the patient's condition changes or if they have any questions. Consult Acknowledgment - Thank you for your consult request.
[2018-01-25 09:08] LABS: PTT 51 SEC (25-37)
--- NOTE | 2018-01-25 11:13 | PN- Cardiology ---
Subjective Subjective: Patient is lying comfortably in bed. He continues to have cough and shortness of breath. Blood pressure now stable. Pleuritic chest pain noted. Objective Vital Signs and I&Os Vital Signs Date Time Temp Pulse Resp B/P B/P Pulse O2 O2 Flow FiO2 Mean Ox Delivery Rate 01/25 0939 90 125/64 01/25 0939 92 125/64 01/25 0800 Nasal 3.0L Cannula 01/25 0800 97.8 83 21 116/57 97 Nasal 3.0L Cannula 01/25 0400 97 Nasal 3.0L Cannula 01/25 0000 96 Nasal 3.0L Cannula 01/24 2300 97.6 96 27 92/48 95 Nasal 3.0L Cannula 01/24 2005 113 01/24 1845 Nasal 2.0L Cannula 01/24 1816 64 Nasal 2.0L Cannula 01/24 1728 101.6 01/24 1714 101.8 24 01/24 1704 98.8 126 24 104/56 94 Nasal 2.0L Cannula 01/24 1508 99.1 122 20 98/56 97 Nasal 2.0L Cannula 01/24 1352 102.8 01/24 1322 95 Nasal 3.0L Cannula 01/24 1259 96 Nasal 2.0L Cannula 01/24 1232 23 95 01/24 1224 99.5 122 22 108/69 91 Room Air Room Air Intake & Output 01/25 1600 01/25 0800 01/25 0000 01/24 1600 01/24 0800 01/24 0000 Intake Total 2732 700 Output Total 125 175 140 Balance 2607 525 -140 Intake, IV 2432 500 Intake, Oral 300 200 Number 0 Bowel Movements Output, Urine 125 175 140 Patient 165 lb 174 lb 165 lb Weight Weight Bed scale Reported by Patient Measurement Method Physical Exam: General Appearance: well developed/nourished, alert, awake, oriented; mild distress due to pleuritic chest discomfort Head: normal HEENT: Normal Neck: supple, JVP normal, carotid upstrokes normal bilaterally, no masses or thyromegaly Respiratory: chest non-tender, diffuse bilateral rhonchi, greater on the right side with scattered right-sided wheezing Cardiovascular: regular rate/rhythm, normal S1, S2, 1/6 systolic murmur Abdomen: normal bowel sounds, soft, non-tender Extremities: normal inspection, no edema Vascular: Pulses are 2+ and equal bilaterally Neurologic: Grossly normal/nonfocal Current Medications: Current Medications Sig/Casey Start time Last Medication Dose Route Stop Time Status Admin Acetaminophen 650 MG Q6PRN PRN 01/24 1345 AC PO Acetaminophen 1,000 MG Q6P PRN 01/24 1345 AC 01/25 N/A 1 UNIT IV 0948 Acetaminophen 0 .STK-MED ONE 01/24 1317 DC IV Acetaminophen 1,000 MG ONCE ONE 01/24 1315 DC 01/24 N/A 1 UNIT IV 01/24 1329 1325 Albuterol Sulfate 3 ML EVERY 4 HRS/AWAKE 01/24 2000 AC 01/24 INH 1755 Albuterol Sulfate 3 ML ONCE ONE 01/24 1315 DC 01/24 INH 01/24 1316 1322 Aspirin 81 MG DAILY 01/24 1607 AC 01/25 PO 0940 Aspirin 0 .STK-MED ONE 01/24 1329 DC PO Aspirin 325 MG ONCE ONE 01/24 1315 DC 01/24 PO 01/24 1316 1332 Atorvastatin Calcium 20 MG 1700 01/25 1700 AC PO Azithromycin 500 MG DAILY 01/25 0918 AC Sodium Chloride 250 ML IV Azithromycin 500 MG ONCE ONE 01/24 1300 CAN Sodium Chloride 250 ML IV 01/24 1359 Baclofen 10 MG QPM 01/24 2100 AC 01/24 PO 2005 Budesonide/ 2 PUF BID 01/24 2100 AC 01/25 Formoterol Fumarate INH 0855 Ceftazidime 2,000 MG Q12H 01/25 1600 AC IV Ceftazidime 0 .STK-MED ONE 01/24 1329 DC .ROUTE Ceftazidime 2,000 MG ONCE ONE 01/24 1315 DC 01/24 IV 01/24 1316 1351 Ceftriaxone Sodium 1,000 MG DAILY 01/25 0904 DC IV Ceftriaxone Sodium 1,000 MG ONCE ONE 01/24 1300 CAN IV 01/24 1301 Clopidogrel Bisulfate 75 MG DAILY 01/24 1608 AC 01/25 PO 0854 Doxycycline Hyclate 100 MG ONCE ONE 01/24 1315 DC 01/24 Sodium Chloride 100 ML IV 01/24 1420 1353 Gabapentin 600 MG Q8 01/24 1709 AC 01/25 PO 0629 Heparin Sodium 2,241 UNIT ONE ONE 01/25 0950 DC (Porcine) IV 01/25 0951 Heparin Sodium 2,367 UNIT 0200 01/25 0200 DC (Porcine) IV 01/25 0201 Heparin Sodium 5,000 UNIT .STK-MED ONE 01/25 0158 DC (Porcine) IV 01/25 0159 Heparin Sodium 25,000 UNIT Q24H 01/24 1500 AC 01/24 (Porcine) IV 1536 Sodium Chloride 500 ML Heparin Sodium 0 .STK-MED ONE 01/24 1214 CAN (Porcine) .ROUTE Insulin Aspart 0 TIDAC 01/25 0800 AC SC Ipratropium [place] 2.5 ML EVERY 4 HRS/AWAKE 01/24 2000 AC 01/24 INH 1755 Ipratropium [place] 2.5 ML DAILY 01/24 1710 DC INH Ipratropium [place] 2.5 ML ONCE ONE 01/24 1315 DC 01/24 INH 01/24 1316 1322 Magnesium Oxide 400 MG DAILY 01/26 0900 AC PO Magnesium Sulfate 1 GM ONCE ONE 01/25 1015 AC Dextrose/Water 100 ML IV 01/25 1414 Metoprolol Tartrate 0 .STK-MED ONE 01/24 1527 DC PO Metoprolol Tartrate 25 MG BID 01/24 1515 AC 01/24 PO 2005 Morphine Sulfate 0 .STK-MED ONE 01/24 1442 DC .ROUTE Morphine Sulfate 1 MG Q8P PRN 01/24 1345 AC 01/24 IV 2352 Norepinephrine 4 MG Q24H 01/25 0930 AC 01/25 Sodium Chloride 250 ML IV 0939 Oxycodone/ 1 TAB ONCE ONE 01/24 1700 DC 01/24 Acetaminophen PO 01/24 1701 1710 Phenylephrine HCl 40 MG Q24H 01/24 2200 AC 01/25 Sodium Chloride 250 ML IV 0312 Phenylephrine HCl 40 MG .STK-MED ONE 01/24 2158 DC IM 01/24 2159 Sodium Chloride 1,000 ML BOLUS ONE 01/24 2345 DC 01/24 IV 01/25 0044 2348 Sodium Chloride 1,000 ML Q8H 01/24 2345 AC 01/25 IV 0936 Sodium Chloride 1,000 ML BOLUS ONE 01/24 2200 DC 01/24 IV 01/24 2259 2200 Sodium Chloride 500 ML BOLUS ONE 01/24 1315 DC 01/24 IV 01/24 1414 1351 Tamsulosin HCl 0.4 MG DAILY 01/25 0900 AC 01/25 PO 0939 Tiotropium [place] 1 PUF DAILY 07/13 1711 AC 01/25 INH 0856 Vancomycin HCl 1,250 MG Q24H 01/25 1000 AC 01/25 Sodium Chloride 250 ML IV 1027 Results Last 48 Hrs of Labs/Mics: Laboratory Tests 01/25/18 0815: APTT 51 H 01/25/18 0555: Troponin I 2.04 *H 01/25/18 0555: Anion Gap 11, Estimated GFR 50 L, Glucose 103 H, Calcium 7.7 L, Phosphorus 4.7 H, Magnesium 1.6, Total Bilirubin 1.0, AST 38, ALT 32, Albumin 2.8 L, Triglycerides 116, Cholesterol 101, LDL Cholesterol, Calc 41 L, HDL Cholesterol 37 L, Cholesterol/HDL Ratio 3, CBC w Diff MAN DIFF ORDERED, RBC 3.02 L, MCV 91.2, MCH 30.1, MCHC 33.0, RDW 19.9 H, MPV 9.1, Gran % 86.8 H, Lymphocytes % 6.4 L, Monocytes % 6.6, Eosinophils % 0.1, Basophils % 0.1, Absolute Granulocytes 15.4 H, Segmented Neutrophils 70, Band Neutrophils 11 H, Absolute Lymphocytes 1.1 L, Lymphocytes 10 L, Monocytes 5, Absolute Monocytes 1.2 H, Eosinophils 1, Absolute Eosinophils 0, Absolute Basophils 0, Metamyelocytes 3 H , Platelet Estimate ADEQUATE, Polychromasia 1+ 01/25/18 0010: Troponin I 1.92 *H 01/24/18 1800: pH 7.46 H, pCO2 38, pO2 79 L, HCO3 26, ABG O2 Sat (Measured) 93.0 L, P-50 ( Temp Corrected) Y, Carboxyhemoglobin 1 L, O2 Concentration % 2L, Temperature 101.6 H, O2 Delivery Method NC, Phlebotomy Draw Site RIGHT RADIAL 01/24/18 1730: Troponin I 0.78 *H 01/24/18 1730: Lactic Acid 2.0, D-Dimer High Sensitivty 813 H 01/24/18 1713: Lactic Acid Cancelled 01/24/18 1459: D-Dimer High Sensitivty Cancelled 01/24/18 1150: Anion Gap 13, Estimated GFR > 60, BUN/Creatinine Ratio 23.3, Glucose 102 H, Lactic Acid 2.5 H, Calcium 9.0, Total Bilirubin 1.0, Direct Bilirubin 0.4, AST 23, ALT 19 L, Alkaline Phosphatase 77, Troponin I 0.39 *H, Total Protein 6.5, Albumin 3.5, TSH 0.075 L, Free T4 1.11, PT 13.4 H, INR 1.23 H, APTT 30, CBC w Diff MAN DIFF ORDERED, RBC 3.78 L, MCV 90.3, MCH 30.2, MCHC 33.4, RDW 19.0 H, MPV 9.0, Gran % 94.8 H, Lymphocytes % 2.1 L, Monocytes % 3.0, Eosinophils % 0, Basophils % 0.1, Absolute Granulocytes 11.5 H, Segmented Neutrophils 80 H, Band Neutrophils 12 H, Absolute Lymphocytes 0.3 L, Lymphocytes 5 L, Monocytes 3, Absolute Monocytes 0.4, Absolute Eosinophils 0, Absolute Basophils 0, Poikilocytosis FEW, Basophilic Stippling RARE, Stomatocytes FEW 01/24/18 0010: APTT 45 H Microbiology 01/25 1920 URINE ROUT: Legionella Antigen - COMP 01/25 1920 URINE ROUT: Streptococcus pneumoniae Antigen (M - COMP Assessment/Plan Assessment/Plan Assessment: 1. Elevated troponin consistent with type II SC 2. Multilobar pneumonia 3. Coronary artery disease with evidence of coronary consultation on chest CT 4. History of prior pneumonia 5. History of hyperlipidemia 6. History of hypertension 7. Peripheral arterial disease status post prior angioplasty 8. Possible history of atrial fibrillation 9. Hypotension-resolved 10. Acute renal insufficiency Recommendations: -Maintain patient on telemetry monitoring -Trend troponin until decreasing -ECG today and in the morning -Echocardiogram pending -Otherwise continue management as per the ICU team. -In view of the patient's elevated troponin and coronary consultation on chest CT, the patient will likely eventually need further evaluation, either pharmacologic nuclear stress test or cardiac catheterization. Continue telemetry? Yes
[2018-01-25 16:00] VITALS: BP 97/56
[2018-01-25 16:56] LABS: PTT 47 SEC (25-37)
[2018-01-26] VITALS: BP 112/60
[2018-01-26 00:33] LABS: PTT 42 SEC (25-37)
[2018-01-26 06:43] LABS: ABSOLUTE BASOPHIL COUNT 0 /CUMM (0.0-0.2); ABSOLUTE EOSINOPHIL COUNT 0.2 /CUMM (0.0-0.7); ABSOLUTE GRANULOCYTE CT 10.2 /CUMM (1.4-6.5); ABSOLUTE LYMPH COUNT 0.7 /CUMM (1.2-3.4); ABSOLUTE MONOCYTE COUNT 0.6 /CUMM (0.10-0.60); BASOPHIL % 0.1 % (0.0-2.0); EOSINOPHIL % 1.6 % (0-5); GRANULOCYTE % 87.4 % (42.2-75.2); HEMATOCRIT 24.8 % (42-52); MEAN CORPUSCULAR HGB 30.3 PG (27.0-31.0); MEAN CORPUSCULAR HGB CONC 33.3 G/DL (33.0-37.0); MEAN CORPUSCULAR VOLUME 90.9 FL (80.0-94.0); MEAN PLATELET VOLUME 9.3 FL (7.4-10.4); PLATELET COUNT 114 /CUMM (130-400); RBC DISTRIBUTION WIDTH 19.7 % (11.5-14.5); RED BLOOD CELL CT 2.73 /CUMM (4.70-6.10)
[2018-01-26 07:23] LABS: WHITE BLOOD CELL COUNT 11.7 /CUMM (4.8-10.8)
[2018-01-26 08:00] VITALS: BP 118/60
--- NOTE | 2018-01-26 08:05 | PN- Resident CRCU ---
Subjective HPI/CRCU Issues: Sepsis Hypotension HCAP Elevated troponins AECOPD Scrotal Hematoma with variocele Patient seen and examined. Reports feeling significant short of breath with ambulation. Feels okay at rest. Still has some chest pain that is exacerbated with lying flat. 24 Hour Events: No acute events overnight. Was weaned off pressors at around 1 am overnight. Objective Vital Signs & I&O Last 8 Hrs of Vitals and I&O: . Exam General Appearance: well developed/nourished, alert, awake, comfortable, mild distress Head: atraumatic, normal appearance Neck: TLC in place on right Respiratory: chest non-tender, decreased breath sounds, crackles Cardiovascular: tachycardia Gastrointestinal: soft, non-tender, distended Extremities: no edema Cranial Nerves: normal hearing, normal speech Skin: intact, normal color, warm/dry Skin Temp/Moisture Exam: Warm/Dry Sepsis Skin Exam (color): Normal for Ethnicity Current Medications: Current Medications Sig/Casey Start time Last Medication Dose Route Stop Time Status Admin Acetaminophen 1,000 MG .STK-MED ONE 01/25 0943 DC IV 01/25 0944 Acetaminophen 650 MG Q6PRN PRN 01/24 1345 AC PO Acetaminophen 1,000 MG Q6P PRN 01/24 1345 AC 01/25 N/A 1 UNIT IV 1856 Albuterol Sulfate 3 ML EVERY 4 HRS/AWAKE 01/24 2000 AC 01/26 INH 0852 Aspirin 81 MG DAILY 01/24 1607 AC 01/25 PO 0940 Atorvastatin Calcium 20 MG 1700 01/25 1700 AC 01/25 PO 1736 Azithromycin 500 MG DAILY 01/25 0918 AC 01/25 Sodium Chloride 250 ML IV 1257 Baclofen 10 MG QPM 01/25 2100 DC PO Baclofen 10 MG QPM 01/24 2100 AC 01/25 PO 2250 Budesonide/ 2 PUF BID 01/24 2100 AC 01/25 Formoterol Fumarate INH 2315 Ceftazidime 2,000 MG Q12H 01/25 1600 AC 01/26 IV 0347 Clopidogrel Bisulfate 75 MG DAILY 01/24 1608 AC 01/25 PO 0854 Gabapentin 600 MG Q8 01/24 1709 AC 01/26 PO 0701 Heparin Sodium 2,241 UNIT ONE ONE 01/25 0950 DC 01/25 (Porcine) IV 01/25 0951 1132 Heparin Sodium 25,000 UNIT Q24H 01/24 1500 AC 01/25 (Porcine) IV 1725 Sodium Chloride 500 ML Insulin Aspart 0 TIDAC 01/25 0800 AC SC Ipratropium [place] 2.5 ML EVERY 4 HRS/AWAKE 01/24 2000 AC 01/26 INH 0852 Magnesium Oxide 400 MG DAILY 01/26 0900 AC PO Magnesium Sulfate 1 GM ONCE ONE 01/25 1015 DC 01/25 Dextrose/Water 100 ML IV 01/25 1414 1135 Melatonin 5 MG AT BEDTIME 01/25 2215 AC 01/25 PO 2312 Metoprolol Tartrate 25 MG BID 01/24 1515 AC 01/24 PO 2005 Morphine Sulfate 4 MG .STK-MED ONE 01/25 2132 DC IM 01/25 2133 Morphine Sulfate 1 MG Q8P PRN 01/24 1345 AC 01/26 IV 0343 Norepinephrine 4 MG Q24H 01/25 0930 AC 01/25 Sodium Chloride 250 ML IV 0939 Norepinephrine 4 MG .STK-MED ONE 01/25 0928 DC IV 01/25 0929 Phenylephrine HCl 40 MG Q24H 01/24 2200 DC 01/25 Sodium Chloride 250 ML IV 0312 Pregabalin 25 MG ONCE ONE 01/25 2330 DC 01/25 PO 01/25 2331 2350 Sodium Chloride 1,000 ML Q8H 01/24 2345 AC 01/25 IV 2308 Tamsulosin HCl 0.4 MG DAILY 01/25 0900 AC 01/25 PO 0939 Tiotropium [place] 1 PUF DAILY 01/24 1711 AC 01/25 INH 0856 Vancomycin HCl 1,250 MG Q24H 01/25 1000 AC 01/25 Sodium Chloride 250 ML IV 1027 Impression/Plan Impression/Problem List Impression: Mr. Tolentino is a 72 y/o M with a significant PMH of COPD, PAD, DM, HTN and HLD who presented to the ED complaining of shortness of breath, chest pain and productive cough. Of note the pt has a prior hospitalization in [place] for lower extremity angioplasty. In the ED he was found to be febrile, tachycardic, tachypneic with WBC of 12.2 and a CXR that showed R lobe consolidation. Pt was admitted to the telemetry unit on 01/24 for management of sepsis and pneumonia of likely gram negative etiology due to recent hospitalization. Later in the evening he was found to be hypotensive with SBP in the 60s. He was transferred to the ICU for management of septic shock. Assessment: 1. Septic shock likely secondary to hospital acquired pneumonia 2. Elevated troponins 3. AECOPD 4. Scrotal Hematoma with varicocele 5. History of diabetes Plan: * Continue monitoring in the ICU for now. * His blood pressure is stable off pressors but he is tachycardic * Continue IV Vancomycin, Ceftazidime and Azithromycin. * Blood cultures show no growth so far. * Obtain sputum cultures. * TRC/nebs as needed. * Continue supplemental oxygen to maintain target sats >92%. Currently on 3L of O2. * Troponins have trended down. * Would maintain anticoagulation with IV heparin given persistent chest pain. * Echocardiogram - pending. * IVF decreased to 50ml/hr. Can be discontinued once oral intake improves. * Monitor thrombocytopenia * Survelliance nasal cultures are +ve for MRSA. Contact precautions * Diet: Diabetic * DVT Prophylaxis: On IV Heparin * Code: Full Code Problem List: 1. Elevated troponin Pain Ratin Tomorrow's Labs & Rationales: CBC, ICU bundle Plan DVT/Prophylaxis: mechanical, pharmacological
--- NOTE | 2018-01-26 08:57 | PN- CRCU ---
Subjective HPI/Critical Care Issues: The patient is much more awake and alert today. He reports feeling improved overall. He denies any increased shortness of breath, chest pain, abdominal pain, nausea or vomiting. He has an ongoing congested cough. He is short of breath with exertion. The patient has been off pressors since 1:00 this morning and his blood pressure has been stable. The patient now afebrile. His respiratory status is stable noting he is 97% on 3 L nasal cannula. His CVP is ranging between 12 and 13. Overall, the patient feels improved and is looking forward to getting out of bed today and going home in the next few days. Objective Current Medications: Current Medications Sig/Casey Start time Last Medication Dose Route Stop Time Status Admin Acetaminophen 1,000 MG .STK-MED ONE 01/25 0943 DC IV 01/25 0944 Acetaminophen 650 MG Q6PRN PRN 01/24 1345 AC PO Acetaminophen 1,000 MG Q6P PRN 01/24 1345 AC 01/25 N/A 1 UNIT IV 1856 Albuterol Sulfate 3 ML EVERY 4 HRS/AWAKE 01/24 2000 AC 01/25 INH 2101 Aspirin 81 MG DAILY 01/24 1607 AC 01/25 PO 0940 Atorvastatin Calcium 20 MG 1700 01/25 1700 AC 01/25 PO 1736 Azithromycin 500 MG DAILY 01/25 0918 AC 01/25 Sodium Chloride 250 ML IV 1257 Baclofen 10 MG QPM 01/25 2100 DC PO Baclofen 10 MG QPM 01/24 2100 AC 01/25 PO 2250 Budesonide/ 2 PUF BID 01/24 2100 AC 01/25 Formoterol Fumarate INH 2315 Ceftazidime 2,000 MG Q12H 01/25 1600 AC 01/26 IV 0347 Ceftriaxone Sodium 1,000 MG DAILY 01/25 0904 DC IV Clopidogrel Bisulfate 75 MG DAILY 01/24 1608 AC 01/25 PO 0854 Gabapentin 600 MG Q8 01/24 1709 AC 01/26 PO 0701 Heparin Sodium 2,241 UNIT ONE ONE 01/25 0950 DC 01/25 (Porcine) IV 01/25 0951 1132 Heparin Sodium 25,000 UNIT Q24H 01/24 1500 AC 01/25 (Porcine) IV 1725 Sodium Chloride 500 ML Insulin Aspart 0 TIDAC 01/25 0800 AC SC Ipratropium [place] 2.5 ML EVERY 4 HRS/AWAKE 01/25 2000 AC 01/25 INH 2101 Magnesium Oxide 400 MG DAILY 01/26 0900 AC PO Magnesium Sulfate 1 GM ONCE ONE 01/25 1015 DC 01/25 Dextrose/Water 100 ML IV 01/25 1414 1135 Melatonin 5 MG AT BEDTIME 01/25 2215 AC 01/25 PO 2312 Metoprolol Tartrate 25 MG BID 01/24 1515 AC 01/24 PO 2005 Morphine Sulfate 4 MG .STK-MED ONE 01/25 2132 DC IM 01/25 2133 Morphine Sulfate 1 MG Q8P PRN 01/24 1345 AC 01/26 IV 0343 Norepinephrine 4 MG Q24H 01/25 0930 AC 01/25 Sodium Chloride 250 ML IV 0939 Norepinephrine 4 MG .STK-MED ONE 01/25 0928 DC IV 01/25 0929 Phenylephrine HCl 40 MG Q24H 01/24 2200 DC 01/25 Sodium Chloride 250 ML IV 0312 Pregabalin 25 MG ONCE ONE 01/25 2330 DC 01/25 PO 01/25 2331 2350 Sodium Chloride 1,000 ML Q8H 01/24 2345 AC 01/25 IV 2308 Tamsulosin HCl 0.4 MG DAILY 01/25 0900 AC 01/25 PO 0939 Tiotropium [place] 1 PUF DAILY 01/24 1711 AC 01/25 INH 0856 Vancomycin HCl 1,250 MG Q24H 01/25 1000 AC 01/25 Sodium Chloride 250 ML IV 1027 Vital Signs & I&O Last 24 Hrs of Vitals and I&O: Vital Signs Date Time Temp Pulse Resp B/P B/P Pulse O2 O2 Flow FiO2 Mean Ox Delivery Rate 01/26 0400 96 Nasal 3.0L Cannula 01/26 0000 99 Nasal 3.0L Cannula 01/26 0000 96.0 98 22 112/60 99 Nasal 3.0L Cannula 01/25 2251 98.0 100 20 107/57 01/25 2000 95 Nasal 3.0L Cannula 01/25 1615 96 Nasal 2.0L Cannula 01/25 1600 97 Nasal 3.0L Cannula 01/25 1600 98.3 86 18 97/56 97 Nasal 3.0L Cannula 01/25 1200 Nasal 3.0L Cannula 01/25 1134 98 Nasal 2.0L Cannula 01/25 0939 90 125/64 01/25 0939 92 125/64 Intake & Output 01/26 1600 01/26 0800 01/26 0000 Intake Total 343 2000 Output Total 650 500 Balance -307 1500 Intake, IV 243 1400 Intake, Oral 100 600 Output, Urine 650 500 Patient 165 lb Weight Physical Exam General Appearance: well developed/nourished, no apparent distress, alert, awake , comfortable Head: atraumatic, normal appearance Neck: normal inspection, supple Respiratory: chest non-tender, no respiratory distress, rhonchi, wheezing Cardiovascular: regular rate/rhythm, edema Gastrointestinal: normal bowel sounds, soft, non-tender, no organomegaly Extremities: normal inspection, normal capillary refill, pedal edema Neurologic/Psych: no motor/sensory deficits, awake, alert, oriented x 3 Cranial Nerves: normal hearing, normal speech Skin: intact, normal color Results Last 24 Hrs of Lab Results: Laboratory Tests 01/26/18 0754: APTT Pending 01/26/18 0600: Troponin I Cancelled 01/26/18 0600: Anion Gap 10, Estimated GFR > 60, Glucose 107 H, Calcium 7.3 L, Phosphorus 2.6 , Magnesium 1.9, Total Bilirubin 0.5, AST 31, ALT 45, Troponin I 0.70 *H, Albumin 2.6 L, CBC w Diff NO MAN DIFF REQ, RBC 2.73 L, MCV 90.9, MCH 30.3, MCHC 33.3, RDW 19.7 H, MPV 9.3, Gran % 87.4 H, Lymphocytes % 5.8 L, Monocytes % 5.1, Eosinophils % 1.6, Basophils % 0.1, Absolute Granulocytes 10.2 H, Absolute Lymphocytes 0.7 L, Absolute Monocytes 0.6, Absolute Eosinophils 0.2, Absolute Basophils 0 01/26/18 0007: APTT 42 H 01/25/18 2015: Troponin I 1.04 *H 01/25/18 1620: APTT 47 H 01/25/18 1400: Troponin I Cancelled 01/25/18 1200: Troponin I 1.42 *H Last 24 Hrs of Micro Results: All cultures are pending but are negative so far. Impression/Plan Impression/Plan Impression/Plan: 1. Septic shock secondary to hospital-acquired pneumonia. 2. Chest pain with positive troponins, rule out acute coronary syndrome. 3. Scrotal hematoma with varicocele in the setting of recent vascular surgery. 4. Acute exacerbation of COPD. 5. Possible history of atrial fibrillation in the past. 6. Diabetes mellitus. 7. PAD, status post recent vascular surgery resulting in significant hematomas. 9. Progressive anemia, likely delusional. No evidence of bleeding. Recommendations: * Guaiac all stools. * Monitor for any evidence of bleeding. * Check a follow-up CBC this afternoon. * Follow-up culture data. * Treat with vancomycin, ceftazidime and azithromycin pending culture results. * Monitor CVP's. * Advance diet as tolerated. * Decrease IVFs to 50 ml/hr. we will stop IV fluids once the patient is able to take in adequate nutrition. * Monitor urine output, strict I's and O's. * Monitor blood pressure off pressors. * Hold off on diuretics for now. * [facility] consult for nebs and pulmonary toilet, continue inhalers (Symbicort and Spiriva). * Continue heparin drip, aspirin and Plavix. * Follow-up cardiology input, await echocardiogram. * Continue with scrotal elevation. * Urology input to be obtained. * DVT prophylaxis at all times. * Sepsis bundle/protocol followed. * Continue to monitor in the critical care unit.
[2018-01-26 09:09] LABS: PTT 64 SEC (25-37)
--- NOTE | 2018-01-26 12:18 | Cons- Urology ---
General Information and HPI Consulting Request Date of Consult: 01/26/18 Requested By: La Olivera MD Reason for Consult: SCROTAL EDEMA Source of Information: patient Exam Limitations: no limitations History of Present Illness: PT WITH SEVERE SCROTAL HEMATOMA "ELEPHANT SIZE NUTS" POST VASCULAR PROCEDURE: WAS MUCH WORSE PRIOR TO TRAVELING TO [place]. VOIDING WELL. PAIN MUCH BETTER. Patient is a 72 year old male with history of COPD, PAD, Diabetes mellitus, HTN and hyperlipidemia who arrived to the ED complaining of shortness of breath, chest pain and cough. The patient began feeling short of breath 2 days ago after traveling by plane from [place] to visit family in [place]. His shortness of breath became progressively worse and upon experiencing severe, sharp, stabbing chest pain in his right chest, near the nipple, he sought treatment in the ED. Prior to traveling, the patient had recently been discharged from a hospital in [place], following "roto-rooting the arteries in my legs", which led to the complication of scrotal edema and varicocele and subsequent hospitalization. The patient also complained of a productive cough with "gunk coming up" at times in large amounts of mucus, but did not report fever or chills. The chest pain was worsening since arrival to the ED, and the pain increased upon inspiration. Allergies/Medications Allergies: Coded Allergies: No Known Allergies (01/24/18) Home Med List: Albuterol Sulfate 2.5 MG/3 ML (0.083 %) VIAL.NEB 1 Vial INH/SHIVANI TID PRN copd Aspirin (Aspirin*) 81 MG TAB.CHEW 81 MG PO DAILY HEART (Reported) Baclofen 10 MG TABLET 1 TAB PO QPM MUSCLE SPASMS (Reported) Budesonide/Formoterol Fumarate (Symbicort 160-4.5 Mcg Inhaler) 160 MCG-4.5 MCG/ ACTUATION HFA.AER.AD 2 PUF INH BID BREATHING PROBLEMS (Reported) Clonazepam 1 MG TABLET 1 TAB PO BIDP PRN ANXIETY (Reported) Clopidogrel Bisulfate (Plavix) 75 MG TABLET 1 TAB PO DAILY HEART (Reported) Ferrous Sulfate 325 MG (65 MG IRON) TABLET 1 TAB PO DAILY IRON, VITAMIN ( Reported) Gabapentin 600 MG TABLET 1 TAB PO TID NEUROPATHY (Reported) Ipratropium [place] (Atrovent Hfa) 17 MCG/ACTUATION HFA.AER.AD 2 PUFF PO 4 TIMES/DAY BREATHING PROBLEMS (Reported) Metformin HCl 500 MG TABLET 500 MG PO BID BLOOD SUGAR (Reported) Pantoprazole Sodium 40 MG TABLET.DR 40 MG PO DAILY ACID REFLUX (Reported) Prednisone 10 MG TABLET 1 TAB PO AD copd On Take 07/11/16-07/13/16 40 MG 07/14/16-07/16/16 30 MG 07/17/16-07/19/16 20 MG 07/20/16-07/22/16 10 MG Then Stop Rosuvastatin Calcium (Crestor) 10 MG TABLET 10 MG PO 3XW CHOLESTEROL ( Reported) Tamsulosin HCl 0.4 MG CAP.ER.24H 1 CAP PO DAILY PROSTATE (Reported) Tiotropium [place] (Spiriva Respimat) 2.5 MCG/ACTUATION MIST.INHAL 1 PUFF PO DAILY PRN SHORTNESS OF BREATH (Reported) Valsartan/Hydrochlorothiazide (Valsartan-Hctz 320-25 MG Tab) 320 MG-25 MG TABLET 1 TAB PO DAILY HEART (Reported) Zolpidem Tartrate 10 MG TABLET 10 MG PO QPMP PRN SLEEP (Reported) Current Medications: Current Medications Sig/Casey Start time Last Medication Dose Route Stop Time Status Admin Acetaminophen 650 MG Q6PRN PRN 01/24 1345 AC PO Acetaminophen 1,000 MG Q6P PRN 01/24 1345 AC 01/25 N/A 1 UNIT IV 1856 Albuterol Sulfate 3 ML EVERY 4 HRS/AWAKE 01/24 2000 AC 01/26 INH 0852 Aspirin 81 MG DAILY 01/24 1607 AC 01/26 PO 0935 Atorvastatin Calcium 20 MG 1700 01/25 1700 AC 01/25 PO 1736 Azithromycin 500 MG DAILY 01/25 0918 AC 01/26 Sodium Chloride 250 ML IV 0932 Baclofen 10 MG QPM 01/25 2100 DC PO Baclofen 10 MG QPM 01/24 2100 AC 01/25 PO 2250 Budesonide/ 2 PUF BID 01/24 2100 AC 01/26 Formoterol Fumarate INH 0937 Ceftazidime 2,000 MG Q12H 01/25 1600 AC 01/26 IV 0347 Clopidogrel Bisulfate 75 MG DAILY 01/24 1608 AC 01/26 PO 0936 Gabapentin 600 MG Q8 01/24 1709 AC 01/26 PO 0701 Heparin Sodium 5,000 UNIT .STK-MED ONE 01/26 0256 DC (Porcine) IV 01/26 0257 Heparin Sodium 50,000 UNIT .STK-MED ONE 01/26 0255 DC (Porcine) IV 01/26 0256 Heparin Sodium 25,000 UNIT Q24H 01/24 1500 DC 01/26 (Porcine) IV 1104 Sodium Chloride 500 ML Insulin Aspart 0 TIDAC 01/25 0800 AC SC Ipratropium [place] 2.5 ML EVERY 4 HRS/AWAKE 01/24 2000 AC 01/26 INH 0852 Magnesium Oxide 400 MG DAILY 01/26 0900 AC 01/26 PO 0936 Magnesium Sulfate 1 GM ONCE ONE 01/25 1015 DC 01/25 Dextrose/Water 100 ML IV 01/25 1414 1135 Melatonin 5 MG AT BEDTIME 01/25 2215 AC 01/25 PO 2312 Metoprolol Tartrate 12.5 MG BID 01/26 2100 AC PO Metoprolol Tartrate 25 MG BID 01/24 1515 DC 01/26 PO 0936 Morphine Sulfate 4 MG .STK-MED ONE 01/25 2132 DC IM 01/25 2133 Morphine Sulfate 1 MG Q8P PRN 01/24 1345 AC 01/26 IV 0343 Norepinephrine 4 MG Q24H 01/25 0930 DC 01/25 Sodium Chloride 250 ML IV 0939 Phenylephrine HCl 40 MG Q24H 01/24 2200 DC 01/25 Sodium Chloride 250 ML IV 0312 Pregabalin 25 MG ONCE ONE 01/25 2330 DC 01/25 PO 01/25 2331 2350 Sodium Chloride 1,000 ML Q8H 01/24 2345 AC 01/26 IV 0938 Tamsulosin HCl 0.4 MG DAILY 01/25 0900 AC 01/26 PO 0936 Tiotropium [place] 1 PUF DAILY 01/24 1711 AC 01/26 INH 1015 Vancomycin HCl 1,250 MG Q24H 01/25 1000 AC 01/26 Sodium Chloride 250 ML IV 1103 Past History Medical History Blood Transfusion Hx: Yes Neurological: NONE EENT: NONE Cardiovascular: hypertension, hyperlipidemia, PVD Respiratory: COPD, pneumonia Gastrointestinal: NONE Hepatic: NONE Renal: NONE Musculoskeletal: Restless Legs Syndrome, OA Psychiatric: NONE Endocrine: diabetes Blood Disorders: NONE Cancer(s): basal cell carcinoma, colon/rectal cancer, LAST SEEN ONOCOLOGIST +5 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 LLE angioplasty. Right rotator cuff surgery Right ankle surgery Psychosocial History Where Do You Live? Home Services at Home: None Smoking Status: Former Smoker (QUIT 1 YEAR AGO) ETOH Use: occasional use Illicit Drug Use: denies illicit drug use Functional Ability Ambulation: independent Employment History Employment: Retired Retired? yes Review of Systems Review of Systems Constitutional: Reports: see HPI, weakness. EENTM: Denies: no symptoms. Cardiovascular: Denies: no symptoms. Respiratory: Reports: cough. GI: Denies: no symptoms. Musculoskeletal: Denies: no symptoms. Neurological/Psychological: Denies: no symptoms. Exam & Diagnostic Data Vital Signs and I&O Vital Signs Date Time Temp Pulse Resp B/P B/P Pulse O2 O2 Flow FiO2 Mean Ox Delivery Rate 01/26 0936 118 135/72 01/26 0936 116 135/72 01/26 0850 96 Nasal 3.0L Cannula 01/26 0800 Nasal 3.0L Cannula 01/26 0800 97.3 118 22 118/60 98 Nasal 3.0L Cannula 01/26 0400 96 Nasal 3.0L Cannula 01/26 0000 99 Nasal 3.0L Cannula 01/26 0000 96.0 98 22 112/60 99 Nasal 3.0L Cannula 01/25 2251 98.0 100 20 107/57 01/25 2000 95 Nasal 3.0L Cannula 01/25 1615 96 Nasal 2.0L Cannula 01/25 1600 97 Nasal 3.0L Cannula 01/25 1600 98.3 86 18 97/56 97 Nasal 3.0L Cannula Intake & Output 01/26 1600 01/26 0800 01/26 0000 01/25 1600 01/25 0800 01/25 0000 Intake Total 343 1999 2173 2732 700 Output Total 650 500 550 125 175 Balance -307 1500 1623 2607 525 Intake, IV 243 1400 1453 2432 500 Intake, Oral 100 600 720 300 200 Number 0 Bowel Movements Output, Urine 650 500 550 125 175 Patient 165 lb 165 lb 174 lb Weight Weight Bed scale Measurement Method Physical Exam General Appearance: well developed/nourished, no apparent distress Head: atraumatic Eyes: Bilateral: normal appearance. Neck: normal inspection (RIGHT TRIPLE LUMEN AT IJ) Respiratory: normal breath sounds Cardiovascular: regular rate/rhythm Gastrointestinal: normal bowel sounds Back: no vertebral tenderness Extremities: normal inspection Reproductive: Normal male genitalia (PENILE SCROTAL HEMATOMA) Last 24 Hours of Labs: Laboratory Tests 01/26 01/26 01/26 0754 0600 0600 Chemistry Sodium (137 - 145 mmol/L) 143 Potassium (3.5 - 5.1 mmol/L) 4.0 Chloride (98 - 107 mmol/L) 107 Carbon Dioxide (22 - 30 mmol/L) 26 Anion Gap (5 - 16) 10 BUN (9 - 20 mg/dL) 24 H Creatinine (0.7 - 1.2 mg/dL) 0.8 Estimated GFR (>60 ml/min) > 60 Glucose (65 - 99 mg/dL) 107 H Calcium (8.4 - 10.2 mg/dL) 7.3 L Phosphorus (2.5 - 4.5 mg/dL) 2.6 Magnesium (1.6 - 2.3 mg/dL) 1.9 Total Bilirubin (0.2 - 1.3 mg/dL) 0.5 AST (17 - 59 U/L) 31 ALT (21 - 72 U/L) 45 Troponin I (<0.11 ng/ml) Cancelled 0.70 *H Albumin (3.5 - 5.0 g/dL) 2.6 L Prealbumin (17.6 - 36.0 mg/dL) 12.9 L Coagulation APTT (25 - 37 SEC) 64 H Hematology CBC w Diff NO MAN DIFF REQ WBC (4.8 - 10.8 /CUMM) 11.7 H RBC (4.70 - 6.10 /CUMM) 2.73 L Hgb (14.0 - 18.0 G/DL) 8.3 L Hct (42 - 52 %) 24.8 L MCV (80.0 - 94.0 FL) 90.9 MCH (27.0 - 31.0 PG) 30.3 MCHC (33.0 - 37.0 G/DL) 33.3 RDW (11.5 - 14.5 %) 19.7 H Plt Count (130 - 400 /CUMM) 114 L MPV (7.4 - 10.4 FL) 9.3 Gran % (42.2 - 75.2 %) 87.4 H Lymphocytes % (20.5 - 51.1 %) 5.8 L Monocytes % (1.7 - 9.3 %) 5.1 Eosinophils % (0 - 5 %) 1.6 Basophils % (0.0 - 2.0 %) 0.1 Absolute Granulocytes (1.4 - 6.5 /CUMM) 10.2 H Absolute Lymphocytes (1.2 - 3.4 /CUMM) 0.7 L Absolute Monocytes (0.10 - 0.60 /CUMM) 0.6 Absolute Eosinophils (0.0 - 0.7 /CUMM) 0.2 Absolute Basophils (0.0 - 0.2 /CUMM) 0 01/267 2014 162 1400 Chemistry Troponin I (<0.11 ng/ml) 1.04 *H Cancelled Coagulation APTT (25 - 37 SEC) 42 H 47 H Imaging Results: PATIENT: ADOLFO SERRANO PRESENT AGE: 72 PATIENT ACCOUNT NO: [id number] : 43 LOCATION: [facility] ORDERING PHYSICIAN: Eloisa Meidna MD SERVICE DATE: 01/24/18 EXAM TYPE: US - US-TESTICULAR EXAMINATION: US SCROTUM CLINICAL INFORMATION: Swelling and pain. Presumptive diagnosis: Scrotal mass COMPARISON: None TECHNIQUE: A sonogram of the scrotum was performed assessing smith-scale appearance and color Doppler flow. Spectral analysis and Doppler interrogation was performed. FINDINGS: Within the midline, there is a large heterogeneous, hypoechoic structure measuring roughly 10 x 8.5 x 6.5 cm, most consistent with a large hematoma. This occupies much of the scrotum. RIGHT: Right testicle measures 3.5 x 1.7 x 2.9 cm, volume 12.3 mL. Parenchymal echotexture is normal. No focal testicular parenchymal lesions are visualized. Normal symmetric intratesticular flow is visualized. Right epididymal head is normal in size. No right hydrocele or varicocele is seen. LEFT: Left testicle measures 4.5 x 1.4 x 2.6 cm, volume 11.6 mL. Parenchymal echotexture is normal. No focal testicular parenchymal lesions are visualized. Normal symmetric intratesticular flow is visualized. Small 4 mm anechoic, simple cystic focus in the left testicle is of doubtful clinical significance. Left epididymal head is normal in size. No left hydrocele is seen.. A varicocele is noted with venous diameter of up to 4 mm. IMPRESSION: 1. Large scrotal hematoma. 2. Left-sided varicocele. No acute testicular or epididymal abnormalities. DICTATED BY: Anil Nieves MD DATE/TIME DICTATED:01/24/181821 MANAGER LINUX:PREET DATE/TIME TRANSCRIBED:01/24/181821 CONFIDENTIAL, DO NOT COPY WITHOUT APPROPRIATE AUTHORIZATION. <Electronically signed in Other Vendor System> SIGNED BY: Anil Nieves MD 01/24/181830 Assessment/Plan Assessment/Plan PENILE/SCOTAL HEMATOMA POST VASCULAR SURGERY BLEED/SCROTAL ELEVATION AND PADDING TO PREVENT PRESSURE SORES AND FACILITATE DRAINAGE Copies To: Devan TOVAR,Jeovany Consult Acknowledgment - Thank you for your consult request. 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
--- NOTE | 2018-01-26 14:33 | PN- Cardiology ---
Subjective Subjective: Clinically, the patient appears slightly better today. Last pleuritic chest discomfort present. Remains short of breath. Objective Vital Signs and I&Os Vital Signs Date Time Temp Pulse Resp B/P B/P Pulse O2 O2 Flow FiO2 Mean Ox Delivery Rate 01/26 1200 99 Nasal 3.0L Cannula 01/26 0936 118 135/72 01/26 0936 116 135/72 01/26 0850 96 Nasal 3.0L Cannula 01/26 0800 Nasal 3.0L Cannula 01/26 0800 97.3 118 22 118/60 98 Nasal 3.0L Cannula 01/26 0400 96 Nasal 3.0L Cannula 01/26 0000 99 Nasal 3.0L Cannula 01/26 0000 96.0 98 22 112/60 99 Nasal 3.0L Cannula 01/25 2251 98.0 100 20 107/57 01/25 2000 95 Nasal 3.0L Cannula 01/25 1615 96 Nasal 2.0L Cannula 01/25 1600 97 Nasal 3.0L Cannula 01/25 1600 98.3 86 18 97/56 97 Nasal 3.0L Cannula Intake & Output 01/26 1600 01/26 0800 01/26 0000 01/25 1600 01/25 0800 01/25 0000 Intake Total 343 2000 2173 2732 700 Output Total 650 500 550 125 175 Balance -307 1500 1623 2607 525 Intake, IV 243 1400 1453 2432 500 Intake, Oral 100 600 720 300 200 Number 0 Bowel Movements Output, Urine 650 500 550 125 175 Patient 165 lb 165 lb 174 lb Weight Weight Bed scale Measurement Method Physical Exam: General Appearance: well developed/nourished, alert, awake, oriented; mild distress due to pleuritic chest discomfort Head: normal HEENT: Normal Neck: supple, JVP normal, carotid upstrokes normal bilaterally, no masses or thyromegaly Respiratory: chest non-tender, diffuse bilateral rhonchi, greater on the right side with scattered right-sided wheezing Cardiovascular: regular rate/rhythm, normal S1, S2, 1/6 systolic murmur Abdomen: normal bowel sounds, soft, non-tender Extremities: normal inspection, no edema Vascular: Pulses are 2+ and equal bilaterally Neurologic: Grossly normal/nonfocal Current Medications: Current Medications Sig/Casey Start time Last Medication Dose Route Stop Time Status Admin Acetaminophen 650 MG Q6PRN PRN 01/24 1345 AC PO Acetaminophen 1,000 MG Q6P PRN 01/24 1345 AC 01/25 N/A 1 UNIT IV 1856 Albuterol Sulfate 3 ML EVERY 4 HRS/AWAKE 01/25 2000 AC 01/26 INH 1241 Aspirin 81 MG DAILY 01/24 1607 AC 01/26 PO 0935 Atorvastatin Calcium 20 MG 1700 01/25 1700 AC 01/25 PO 1736 Azithromycin 500 MG DAILY 01/25 0918 AC 01/26 Sodium Chloride 250 ML IV 0932 Baclofen 10 MG QPM 01/25 2100 DC PO Baclofen 10 MG QPM 01/24 2100 AC 01/25 PO 2250 Budesonide/ 2 PUF BID 01/24 2100 AC 01/26 Formoterol Fumarate INH 0937 Ceftazidime 2,000 MG Q12H 01/25 1600 AC 01/26 IV 0347 Clopidogrel Bisulfate 75 MG DAILY 01/24 1608 AC 01/26 PO 0936 Enoxaparin Sodium 40 MG DAILY 01/26 1347 AC 01/26 SC 1427 Gabapentin 600 MG Q8 01/24 1709 AC 01/26 PO 1426 Heparin Sodium 5,000 UNIT .STK-MED ONE 01/26 0256 DC (Porcine) IV 01/26 0257 Heparin Sodium 50,000 UNIT .STK-MED ONE 01/26 0255 DC (Porcine) IV 01/26 0256 Heparin Sodium 25,000 UNIT Q24H 01/24 1500 DC 01/26 (Porcine) IV 1104 Sodium Chloride 500 ML Insulin Aspart 0 TIDAC 01/25 0800 AC SC Ipratropium [place] 2.5 ML EVERY 4 HRS/AWAKE 01/25 2000 AC 01/26 INH 1241 Magnesium Oxide 400 MG DAILY 01/26 0900 AC 01/26 PO 0936 Melatonin 5 MG AT BEDTIME 01/25 2215 AC 01/25 PO 2312 Metoprolol Tartrate 12.5 MG BID 01/26 2100 AC PO Metoprolol Tartrate 25 MG BID 01/24 1515 DC 01/26 PO 0936 Morphine Sulfate 4 MG .STK-MED ONE 01/25 2132 DC IM 01/25 2133 Morphine Sulfate 1 MG Q8P PRN 01/24 1345 AC 01/26 IV 0343 Norepinephrine 4 MG Q24H 01/25 0930 DC 01/25 Sodium Chloride 250 ML IV 0939 Phenylephrine HCl 40 MG Q24H 01/24 2200 DC 01/25 Sodium Chloride 250 ML IV 0312 Pregabalin 25 MG ONCE ONE 01/25 2330 DC 01/25 PO 01/25 2331 2350 Sodium Chloride 1,000 ML Q8H 01/24 2345 AC 01/26 IV 0938 Tamsulosin HCl 0.4 MG DAILY 01/25 0900 AC 01/26 PO 0936 Tiotropium [place] 1 PUF DAILY 01/24 1711 AC 01/26 INH 1015 Vancomycin HCl 1,250 MG Q24H 01/25 1000 AC 01/26 Sodium Chloride 250 ML IV 1103 Results Last 48 Hrs of Labs/Mics: Laboratory Tests 01/26/18 0754: APTT 64 H 01/26/18 0600: Troponin I Cancelled 01/26/18 0600: Anion Gap 10, Estimated GFR > 60, Glucose 107 H, Calcium 7.3 L, Phosphorus 2.6 , Magnesium 1.9, Total Bilirubin 0.5, AST 31, ALT 45, Troponin I 0.70 *H, Albumin 2.6 L, Prealbumin 12.9 L, CBC w Diff NO MAN DIFF REQ, RBC 2.73 L, MCV 90.9, MCH 30.3, MCHC 33.3, RDW 19.7 H, MPV 9.3, Gran % 87.4 H, Lymphocytes % 5.8 L, Monocytes % 5.1, Eosinophils % 1.6, Basophils % 0.1, Absolute Granulocytes 10.2 H, Absolute Lymphocytes 0.7 L, Absolute Monocytes 0.6, Absolute Eosinophils 0.2, Absolute Basophils 0 01/26/18 0007: APTT 42 H 01/25/18 2015: Troponin I 1.04 *H 01/25/18 1620: APTT 47 H 01/25/18 1400: Troponin I Cancelled 01/25/18 1200: Troponin I 1.42 *H 01/25/18 0815: APTT 51 H 01/25/18 0555: Troponin I 2.04 *H 01/25/18 0555: Anion Gap 11, Estimated GFR 50 L, Glucose 103 H, Calcium 7.7 L, Phosphorus 4.7 H, Magnesium 1.6, Total Bilirubin 1.0, AST 38, ALT 32, Albumin 2.8 L, Triglycerides 116, Cholesterol 101, LDL Cholesterol, Calc 41 L, HDL Cholesterol 37 L, Cholesterol/HDL Ratio 3, CBC w Diff MAN DIFF ORDERED, RBC 3.02 L, MCV 91.2, MCH 30.1, MCHC 33.0, RDW 19.9 H, MPV 9.1, Gran % 86.8 H, Lymphocytes % 6.4 L, Monocytes % 6.6, Eosinophils % 0.1, Basophils % 0.1, Absolute Granulocytes 15.4 H, Segmented Neutrophils 70, Band Neutrophils 11 H, Absolute Lymphocytes 1.1 L, Lymphocytes 10 L, Monocytes 5, Absolute Monocytes 1.2 H, Eosinophils 1, Absolute Eosinophils 0, Absolute Basophils 0, Metamyelocytes 3 H , Platelet Estimate ADEQUATE, Polychromasia 1+ 01/25/18 0010: Troponin I 1.92 *H 01/24/18 1800: pH 7.46 H, pCO2 38, pO2 79 L, HCO3 26, ABG O2 Sat (Measured) 93.0 L, P-50 ( Temp Corrected) Y, Carboxyhemoglobin 1 L, O2 Concentration % 2L, Temperature 101.6 H, O2 Delivery Method NC, Phlebotomy Draw Site RIGHT RADIAL 01/24/18 1730: Troponin I 0.78 *H 01/24/18 1730: Lactic Acid 2.0, D-Dimer High Sensitivty 813 H 01/24/18 1713: Lactic Acid Cancelled 01/24/18 1459: D-Dimer High Sensitivty Cancelled Microbiology 01/25 0615 GI: Surveillance Culture - COMP 01/25 0559 UPPER RESP: Surveillance Culture - COMP METH RESIST STAPH AUREUS 01/25 1920 URINE ROUT: Legionella Antigen - COMP 01/24 192 URINE ROUT: Streptococcus pneumoniae Antigen (M - COMP 01/24 1621 URINE ROUT: Urine Culture - COMP Assessment/Plan Assessment/Plan Assessment: 1. Elevated troponin consistent with type II DC-troponin peaked at 2.04 2. Multilobar pneumonia 3. Coronary artery disease with evidence of coronary consultation on chest CT 4. History of prior pneumonia 5. History of hyperlipidemia 6. History of hypertension 7. Peripheral arterial disease status post prior angioplasty 8. Possible history of atrial fibrillation 9. Hypotension-resolved 10. Acute renal insufficiency 11. Aortic stenosis noted on echocardiogram Recommendations: -Maintain patient on telemetry monitoring -Troponins noted -ECG follow-up in a.m. -Echocardiogram noted. The study was slightly suboptimal technically. There is evidence of aortic valve disease of unclear severity. In addition, there appears to be subtle hypokinesia of the mid to distal septum with an ejection fraction of about 50%. -Otherwise continue management as per the ICU team. -In view of the patient's elevated troponin and coronary calcification on chest CT, the patient will likely eventually need further evaluation, either pharmacologic nuclear stress test or cardiac catheterization when more stable from the point of view of his pneumonia/infection. Continue telemetry? Yes
--- NOTE | 2018-01-26 15:05 | ECHOCARDIOGRAM REPORT ---
ADOLFO SERRANO Age: 72 : 1945 Gender: M Exam Date: 01/25/2018 10:32 Exam Location: [facility] Ht (in): 73 Wt (lb): 165 BSA: 1.96 BP: 144 / 63 Ordering Physician: Jacob Hernandez MD Referring Physician: Jacob Hernandez MD Technologist: Yesi Negro [facility] Room Number: 104 Indications: Rhythm: Sinus Technical Quality: Poor, Technically difficult study FINDINGS Left Ventricle Normal size left ventricle. Mild concentric left ventricular hypertrophy. Mildly reduced global left ventricular systolic function. Mildly abnormal left ventricular ejection fraction estimated at 50%. Right Ventricle Normal right ventricular size and function. Right Atrium Normal right atrial size. Left Atrium Mild left atrial dilatation. Mitral Valve Mild mitral annular calcification. Mitral valve thickened. Mild mitral regurgitation. Aortic Valve Diffuse thickening of the aortic valve cusps with reduced excursion. Moderate aortic stenosis. Trace aortic regurgitation. Tricuspid Valve Tricuspid valve not well visualized, grossly normal. Trace tricuspid regurgitation. Mild pulmonary hypertension. Right ventricular systolic pressure estimated to be elevated at 42 mmHg. Pulmonic Valve Pericardium No pericardial effusion. Great Vessels Normal size aortic root. CONCLUSIONS Normal size left ventricle. Mild concentric left ventricular hypertrophy. Mildly reduced global left ventricular systolic function. Mildly abnormal left ventricular ejection fraction estimated at 50%. Normal right ventricular size and function. Normal right atrial size. Mild left atrial dilatation. Mild mitral regurgitation. Moderate aortic stenosis. Trace aortic regurgitation. Trace tricuspid regurgitation. Mild pulmonary hypertension. Adal Mak M.D. (Electronically Signed) Final Date: 26 January 2018 14:59 MEASUREMENTS (Male / Female) Normal Values 2D ECHO LV Diastolic Diameter PLAX 4.8 cm 4.2 - 5.9 / 3.9 - 5.3 cm LV Systolic Diameter PLAX 3.5 cm 2.1 - 4.0 cm LV Fractional Shortening PLAX 27.1 % 25 - 46 % LV Ejection Fraction 2D Teich 52.7 % IVS Diastolic Thickness 1.1 cm LVPW Diastolic Thickness 1.1 cm LV Relative Wall Thickness 0.5 LVOT Diameter 2.0 cm Aortic Root Diameter 2.7 cm LA Systolic Diameter LX 4.7 cm 3.0 - 4.0 / 2.7 - 3.8 cm DOPPLER AV Peak Velocity 318.0 cm/s AV Peak Gradient 40.4 mmHg AV Mean Velocity 216.0 cm/s AV Mean Gradient 22.0 mmHg AV Velocity Time Integral 63.8 cm LVOT Peak Velocity 48.1 cm/s LVOT Peak Gradient 0.9 mmHg LVOT Mean Velocity 35.9 cm/s LVOT Mean Gradient 1.0 mmHg LVOT Velocity Time Integral 8.9 cm LVOT Stroke Volume 28.1 cm AV Area Cont Eq vti 0.4 cm AV Area Cont Eq pk 0.5 cm Mitral E Point Velocity 97.7 cm/s Mitral A Point Velocity 89.3 cm/s Mitral E to A Ratio 1.1 MV Deceleration Time 250.0 ms TR Peak Velocity 282.0 cm/s TR Peak Gradient 31.8 mmHg PV Peak Velocity 121.0 cm/s PV Peak Gradient 5.9 mmHg
[2018-01-26 15:12] LABS: ABSOLUTE BASOPHIL COUNT 0 /CUMM (0.0-0.2); ABSOLUTE EOSINOPHIL COUNT 0.1 /CUMM (0.0-0.7); ABSOLUTE GRANULOCYTE CT 10.9 /CUMM (1.4-6.5); ABSOLUTE LYMPH COUNT 0.6 /CUMM (1.2-3.4); ABSOLUTE MONOCYTE COUNT 0.6 /CUMM (0.10-0.60); BASOPHIL % 0.1 % (0.0-2.0); EOSINOPHIL % 0.8 % (0-5); GRANULOCYTE % 89.7 % (42.2-75.2); HEMATOCRIT 25.2 % (42-52); MEAN CORPUSCULAR HGB 30.1 PG (27.0-31.0); MEAN PLATELET VOLUME 10.1 FL (7.4-10.4); PLATELET COUNT 121 /CUMM (130-400); RBC DISTRIBUTION WIDTH 18.6 % (11.5-14.5); RED BLOOD CELL CT 2.77 /CUMM (4.70-6.10); WHITE BLOOD CELL COUNT 12.1 /CUMM (4.8-10.8)
[2018-01-26 16:00] VITALS: BP 128/70
[2018-01-27] VITALS: BP 150/80
[2018-01-27 06:01] LABS: ABSOLUTE BASOPHIL COUNT 0 /CUMM (0.0-0.2); ABSOLUTE EOSINOPHIL COUNT 0 /CUMM (0.0-0.7); ABSOLUTE GRANULOCYTE CT 9.7 /CUMM (1.4-6.5); ABSOLUTE LYMPH COUNT 0.4 /CUMM (1.2-3.4); ABSOLUTE MONOCYTE COUNT 0.1 /CUMM (0.10-0.60); BASOPHIL % 0 % (0.0-2.0); EOSINOPHIL % 0.1 % (0-5); GRANULOCYTE % 95.2 % (42.2-75.2); HEMATOCRIT 28.2 % (42-52); MEAN CORPUSCULAR HGB 29.9 PG (27.0-31.0); MEAN CORPUSCULAR VOLUME 90.8 FL (80.0-94.0); MEAN PLATELET VOLUME 10.1 FL (7.4-10.4); PLATELET COUNT 140 /CUMM (130-400); RBC DISTRIBUTION WIDTH 19.5 % (11.5-14.5); RED BLOOD CELL CT 3.11 /CUMM (4.70-6.10); WHITE BLOOD CELL COUNT 10.1 /CUMM (4.8-10.8)
--- NOTE | 2018-01-27 07:33 | PN- CRCU ---
Subjective HPI/Critical Care Issues: 24 hour events reviewed. The patient is feeling better. He wants to go home. Objective Current Medications: Current Medications Sig/Casey Start time Last Medication Dose Route Stop Time Status Admin Acetaminophen 650 MG Q6PRN PRN 01/24 1345 AC PO Acetaminophen 1,000 MG Q6P PRN 01/24 1345 AC 01/25 N/A 1 UNIT IV 1856 Albuterol Sulfate 3 ML EVERY 4 HRS/AWAKE 01/25 2000 AC 01/26 INH 1956 Aspirin 81 MG DAILY 01/24 1607 AC 01/26 PO 0935 Atorvastatin Calcium 20 MG 1700 01/25 1700 AC 01/26 PO 1652 Azithromycin 500 MG DAILY 01/25 0918 AC 01/26 Sodium Chloride 250 ML IV 0932 Baclofen 5 MG ONCE ONE 01/27 0715 DC PO 01/27 0716 Baclofen 10 MG QPM 01/27 0015 DC PO Baclofen 10 MG QPM 01/24 2100 AC 01/26 PO 205 Budesonide/ 2 PUF BID 01/24 2100 AC 01/26 Formoterol Fumarate INH 205 Ceftazidime 2,000 MG Q12H 01/25 1600 AC 01/27 IV 0500 Clopidogrel Bisulfate 75 MG DAILY 01/24 1608 AC 01/26 PO 0936 Enoxaparin Sodium 40 MG DAILY 01/26 1347 AC 01/26 SC 1427 Gabapentin 600 MG Q8 01/24 1709 AC 01/26 PO 2135 Heparin Sodium 25,000 UNIT .STK-MED ONE 01/26 1101 DC (Porcine) IV 01/26 1102 Heparin Sodium 25,000 UNIT Q24H 01/24 1500 DC 01/26 (Porcine) IV 1104 Sodium Chloride 500 ML Insulin Aspart 0 TIDAC 01/25 0800 AC SC Ipratropium [place] 2.5 ML EVERY 4 HRS/AWAKE 01/25 2000 AC 01/26 INH 1956 Magnesium Oxide 400 MG DAILY 01/26 0900 AC 01/26 PO 0936 Melatonin 5 MG AT BEDTIME 01/25 2215 AC 01/26 PO 2050 Methylprednisolone 125 MG ONCE ONE 01/26 2115 DC 01/26 IV 01/26 Metoprolol Tartrate 12.5 MG BID 01/26 2100 AC 01/26 PO 205 Metoprolol Tartrate 25 MG BID 01/24 1515 DC 01/26 PO 0936 Morphine Sulfate 1 MG Q8P PRN 01/24 1345 AC 01/26 IV 2012 Norepinephrine 4 MG Q24H 01/25 0930 DC 01/25 Sodium Chloride 250 ML IV 0939 Sodium Chloride 1,000 ML Q8H 01/24 2345 AC 01/26 IV 0938 Tamsulosin HCl 0.4 MG DAILY 01/25 0900 AC 01/26 PO 0936 Tiotropium [place] 1 PUF DAILY 01/24 1711 AC 01/26 INH 1015 Vancomycin HCl 1,250 MG Q24H 01/25 1000 AC 01/26 Sodium Chloride 250 ML IV 1103 Zolpidem Tartrate 10 MG QPM PRN 01/27 0015 AC 01/27 PO 0023 Vital Signs & I&O Last 24 Hrs of Vitals and I&O: Vital Signs Date Time Temp Pulse Resp B/P B/P Pulse O2 O2 Flow FiO2 Mean Ox Delivery Rate 01/27 0400 93 Nasal 4.0L Cannula 01/27 0000 92 Nasal 4.0L Cannula 01/27 0000 98.4 114 22 150/80 92 Nasal 4.0L Cannula 01/26 2051 97.1 127 21 161/99 01/26 2000 97 Nasal 3.0L Cannula 01/26 2000 90 Nasal 3.0L Cannula 01/26 1710 93 Nasal 3.0L Cannula 01/26 1600 97 Nasal 3.0L Cannula 01/26 1600 97.5 116 23 128/70 98 Nasal 3.0L Cannula 01/26 1200 99 Nasal 3.0L Cannula 01/26 0936 118 135/72 01/26 0936 116 135/72 01/26 0850 96 Nasal 3.0L Cannula 01/26 0800 Nasal 3.0L Cannula 01/26 0800 97.3 118 22 118/60 98 Nasal 3.0L Cannula Intake & Output 01/27 0800 01/27 0000 01/26 1600 Intake Total 808 846 5276 Output Total 600 400 500 Balance -676 870 1989 Intake, IV 400 1207 Intake, Oral 100 220 720 Output, Urine 600 400 500 Patient 162 lb Weight Weight Bed scale Measurement Method Physical Exam General Appearance: well developed/nourished, no apparent distress, alert, awake , comfortable Head: atraumatic, normal appearance Neck: normal inspection, supple Respiratory: chest non-tender, no respiratory distress, rhonchi, wheezing Cardiovascular: regular rate/rhythm, edema Gastrointestinal: normal bowel sounds, soft, non-tender, no organomegaly Extremities: normal inspection, normal capillary refill, pedal edema Neurologic/Psych: no motor/sensory deficits, awake, alert, oriented x 3 Cranial Nerves: normal hearing, normal speech Skin: intact, normal color Results Last 24 Hrs of Lab Results: Laboratory Tests 01/27/18 0450: Anion Gap 13, Estimated GFR > 60, Glucose 172 H, Calcium 8.2 L, Phosphorus 2.5 , Magnesium 1.9, Total Bilirubin 0.8, AST 34, ALT 46, Albumin 3.2 L, CBC w Diff MAN DIFF ORDERED, RBC 3.11 L, MCV 90.8, MCH 29.9, MCHC 33.0, RDW 19.5 H, MPV 10.1, Gran % 95.2 H, Lymphocytes % 3.7 L, Monocytes % 1.0 L, Eosinophils % 0.1, Basophils % 0, Absolute Granulocytes 9.7 H, Segmented Neutrophils 90 H, Band Neutrophils 6 H, Absolute Lymphocytes 0.4 L, Lymphocytes 3 L, Monocytes 1 L, Absolute Monocytes 0.1, Absolute Eosinophils 0, Absolute Basophils 0, Platelet Estimate ADEQUATE, Polychromasia 1+ 01/27/18 0130: Troponin I 0.63 *H 01/26/18 2047: Troponin I 0.73 *H 01/26/18 2000: APTT Cancelled 01/26/18 1434: CBC w Diff NO MAN DIFF REQ, RBC 2.77 L, MCV 91.0, MCH 30.1, MCHC 33.0, RDW 18.6 H, MPV 10.1, Gran % 89.7 H, Lymphocytes % 4.8 L, Monocytes % 4.6, Eosinophils % 0.8, Basophils % 0.1, Absolute Granulocytes 10.9 H, Absolute Lymphocytes 0.6 L, Absolute Monocytes 0.6, Absolute Eosinophils 0.1, Absolute Basophils 0 01/26/18 0754: APTT 64 H Impression/Plan Impression/Plan Impression/Plan: 1. Septic shock secondary to hospital-acquired pneumonia. 2. Chest pain with positive troponins, rule out acute coronary syndrome. 3. Scrotal hematoma with varicocele in the setting of recent vascular surgery. 4. Acute exacerbation of COPD. 5. Possible history of atrial fibrillation in the past. 6. Diabetes mellitus. 7. PAD, status post recent vascular surgery resulting in significant hematomas. 8. Anemia without evidence of active bleeding. 9. Hypertension and hyperlipidemia. Recommendations: * Establish peripheral access. * Discontinue right IJ if access has been obtained. * Guaiac all stools and continue to monitor for any evidence of bleeding. * Follow-up culture data. * If cultures are negative today, changed to ceftriaxone and azithromycin. * Encourage oral intake. * Discontinue IV fluids. * Continue with nebs/TRC. * Continue Symbicort and Spiriva. * Taper oxygen down for saturations greater than 92%. * Start prednisone 40 mg daily. Will taper down quickly. * Check a follow-up chest x-ray. * Monitor urine output, strict I's and O's. * Monitor blood pressure off pressors.
[2018-01-27 08:00] VITALS: BP 140/88
--- NOTE | 2018-01-27 10:24 | PN- Resident CRCU ---
Subjective HPI/CRCU Issues: Septic shock 2/2 hospital acquired pneumonia, off pressors Chest Pain with positive troponins, trending down AECOPD, prednisone taper Scrotal Hematoma with varicocele 24 Hour Events: Pt seen and examined at bedside. Mildly annoyed due to lack of sleep related to his restless leg syndrome - he was reassured on his plan of care going forward. Objective Vital Signs & I&O Last 8 Hrs of Vitals and I&O: Laboratory Tests 01/27 01/27 01/26 0450 0130 2047 Chemistry Sodium (137 - 145 mmol/L) 142 Potassium (3.5 - 5.1 mmol/L) 4.5 Chloride (98 - 107 mmol/L) 106 Carbon Dioxide (22 - 30 mmol/L) 23 Anion Gap (5 - 16) 13 BUN (9 - 20 mg/dL) 22 H Creatinine (0.7 - 1.2 mg/dL) 0.8 Estimated GFR (>60 ml/min) > 60 Glucose (65 - 99 mg/dL) 172 H Calcium (8.4 - 10.2 mg/dL) 8.2 L Phosphorus (2.5 - 4.5 mg/dL) 2.5 Magnesium (1.6 - 2.3 mg/dL) 1.9 Iron (49 - 181 ug/dL) Pending TIBC (261 - 462 ug/dL) Pending Ferritin (17.9 - 464 ng/mL) Pending Total Bilirubin (0.2 - 1.3 mg/dL) 0.8 AST (17 - 59 U/L) 34 ALT (21 - 72 U/L) 46 Troponin I (<0.11 ng/ml) 0.63 *H 0.73 *H Albumin (3.5 - 5.0 g/dL) 3.2 L Hematology CBC w Diff MAN DIFF ORDERED WBC (4.8 - 10.8 /CUMM) 10.1 RBC (4.70 - 6.10 /CUMM) 3.11 L Hgb (14.0 - 18.0 G/DL) 9.3 L Hct (42 - 52 %) 28.2 L MCV (80.0 - 94.0 FL) 90.8 MCH (27.0 - 31.0 PG) 29.9 MCHC (33.0 - 37.0 G/DL) 33.0 RDW (11.5 - 14.5 %) 19.5 H Plt Count (130 - 400 /CUMM) 140 MPV (7.4 - 10.4 FL) 10.1 Gran % (42.2 - 75.2 %) 95.2 H Lymphocytes % (20.5 - 51.1 %) 3.7 L Monocytes % (1.7 - 9.3 %) 1.0 L Eosinophils % (0 - 5 %) 0.1 Basophils % (0.0 - 2.0 %) 0 Absolute Granulocytes (1.4 - 6.5 /CUMM) 9.7 H Segmented Neutrophils (42.2 - 75.2 %) 90 H Band Neutrophils (0.0 - 5.0 %) 6 H Absolute Lymphocytes (1.2 - 3.4 /CUMM) 0.4 L Lymphocytes (20.5 - 51.1 %) 3 L Monocytes (1.7 - 9.3 %) 1 L Absolute Monocytes (0.10 - 0.60 /CUMM) 0.1 Absolute Eosinophils (0.0 - 0.7 /CUMM) 0 Absolute Basophils (0.0 - 0.2 /CUMM) 0 Platelet Estimate (ADEQUATE) ADEQUATE Polychromasia 1+ 01/26 1434 Coagulation APTT Cancelled Hematology CBC w Diff NO MAN DIFF REQ WBC (4.8 - 10.8 /CUMM) 12.1 H RBC (4.70 - 6.10 /CUMM) 2.77 L Hgb (14.0 - 18.0 G/DL) 8.3 L Hct (42 - 52 %) 25.2 L MCV (80.0 - 94.0 FL) 91.0 MCH (27.0 - 31.0 PG) 30.1 MCHC (33.0 - 37.0 G/DL) 33.0 RDW (11.5 - 14.5 %) 18.6 H Plt Count (130 - 400 /CUMM) 121 L MPV (7.4 - 10.4 FL) 10.1 Gran % (42.2 - 75.2 %) 89.7 H Lymphocytes % (20.5 - 51.1 %) 4.8 L Monocytes % (1.7 - 9.3 %) 4.6 Eosinophils % (0 - 5 %) 0.8 Basophils % (0.0 - 2.0 %) 0.1 Absolute Granulocytes (1.4 - 6.5 /CUMM) 10.9 H Absolute Lymphocytes (1.2 - 3.4 /CUMM) 0.6 L Absolute Monocytes (0.10 - 0.60 /CUMM) 0.6 Absolute Eosinophils (0.0 - 0.7 /CUMM) 0.1 Absolute Basophils (0.0 - 0.2 /CUMM) 0 Microbiology Date/Time Procedure - Status Source Growth 01/26 143 Respiratory Culture - RES LOWER RESP 01/26 143 Gram Stain - RES LOWER RESP Vital Signs Date Time Temp Pulse Resp B/P B/P Pulse O2 O2 Flow FiO2 Mean Ox Delivery Rate 01/27 1036 114 150/90 01/27 1035 116 150/70 01/27 0749 99 Nasal 4.0L Cannula 01/27 0400 93 Nasal 4.0L Cannula 01/27 0000 92 Nasal 4.0L Cannula 01/27 0000 98.4 114 22 150/80 92 Nasal 4.0L Cannula 01/26 2051 97.1 127 21 161/99 01/26 2000 97 Nasal 3.0L Cannula 01/26 2000 90 Nasal 3.0L Cannula 01/26 1710 93 Nasal 3.0L Cannula 01/26 1600 97 Nasal 3.0L Cannula 01/26 1600 97.5 116 23 128/70 98 Nasal 3.0L Cannula Intake & Output 01/27 1600 01/27 0800 01/27 0000 Intake Total 100 620 Output Total 600 400 Balance -500 220 Intake, IV 400 Intake, Oral 100 220 Output, Urine 600 400 Patient 162 lb Weight Weight Bed scale Measurement Method Exam General Appearance: well developed/nourished, alert, awake, mild distress Head: atraumatic, normal appearance Neck: normal inspection, supple, tlc noted on the R IJ. No surrounding erythema Respiratory: normal breath sounds Cardiovascular: regular rate/rhythm Gastrointestinal: normal bowel sounds, soft, non-tender, no organomegaly Extremities: normal inspection Current Medications: Current Medications Sig/Casey Start time Last Medication Dose Route Stop Time Status Admin Acetaminophen 650 MG Q6PRN PRN 01/24 1345 AC PO Acetaminophen 1,000 MG Q6P PRN 01/24 1345 AC 01/25 N/A 1 UNIT IV 1856 Albuterol Sulfate 3 ML EVERY 4 HRS/AWAKE 01/25 2000 AC 01/27 INH 1229 Aspirin 81 MG DAILY 01/24 1607 AC 01/27 PO 1037 Atorvastatin Calcium 20 MG 1700 01/25 1700 AC 01/26 PO 1652 Azithromycin 500 MG DAILY 01/25 0918 AC 01/27 Sodium Chloride 250 ML IV 1038 Baclofen 5 MG ONCE ONE 01/27 0715 DC 01/27 PO 01/27 0716 0807 Baclofen 10 MG QPM 01/27 0015 DC PO Baclofen 10 MG QPM 01/24 2100 AC 01/26 PO 2051 Budesonide/ 2 PUF BID 01/24 2100 AC 01/27 Formoterol Fumarate INH 1037 Ceftazidime 2,000 MG Q12H 01/25 1600 AC 01/27 IV 0500 Clopidogrel Bisulfate 75 MG DAILY 01/24 1608 AC 01/27 PO 1035 Enoxaparin Sodium 40 MG DAILY 01/26 1347 AC 01/27 SC 1035 Gabapentin 600 MG Q8 01/24 1709 AC 01/26 PO 2135 Insulin Aspart 0 TIDAC 01/25 0800 AC 01/27 SC 0803 Ipratropium [place] 2.5 ML EVERY 4 HRS/AWAKE 01/24 2000 AC 01/27 INH 1229 Magnesium Oxide 400 MG DAILY 01/26 0900 AC 01/27 PO 1035 Melatonin 5 MG AT BEDTIME 01/25 2215 AC 01/26 PO 205 Methylprednisolone 125 MG ONCE ONE 01/26 2115 DC 01/26 IV 01/26 Metoprolol Tartrate 12.5 MG BID 01/26 2100 AC 01/27 PO 1035 Morphine Sulfate 1 MG Q8P PRN 01/24 1345 AC 01/26 IV 2012 Prednisone 40 MG DAILY 01/27 1149 AC PO Pregabalin 150 MG ONCE ONE 01/27 1045 DC 01/27 PO 01/27 1046 1102 Sodium Chloride 1,000 ML Q8H 01/24 2345 DC 01/26 IV 0938 Tamsulosin HCl 0.4 MG DAILY 01/25 0900 AC 01/27 PO 1036 Tiotropium [place] 1 PUF DAILY 01/24 1711 AC 01/27 INH 1036 Vancomycin HCl 1,250 MG Q24H 01/25 1000 AC 01/27 Sodium Chloride 250 ML IV 1038 Zolpidem Tartrate 10 MG QPM PRN 01/27 0015 AC 01/27 PO 0023 Impression/Plan Impression/Problem List Impression: Mr. Tolentino is a 72 y/o M with a significant PMH of COPD, PAD, DM, HTN and HLD who arrived to the ED complaining of shortness of breath, chest pain and productive cough. Of note the pt has a prior hospitalization in [place] for lower extremity angioplasty. On the ED he was found to be febrile, tachycardic, tachypneic with WBC of 12.2 and a CXR that showed R lobe consolidation. Pt was admitted to the telemetry unit on 01/24 for management of sepsis and pneumonia of likely gram negative etiology due to recent hospitalization. That same afternoon pt was found to be hypotensive with SBP in the 60s. A TLC was placed and pt was transferred to the ICU for management of septic shock. IMPRESSIONS Septic shock 2/2 hospital acquired pneumonia Chest Pain with positive troponins AECOPD Scrotal Hematoma with varicocele H/o DM H/o Restless Leg Syndrome, on baclofen and lyrica. Septic shock 2/2 hospital acquired pneumonia/AECOPD Patient with a clinical picture of sepsis on arrival to ED with leukocytosis, tachypnea, tachycardia. CXR showed R Lobe consolidation, and with a recent hospitalization is concerning for HAP by gram negative organisms. His BP is currently maintaining over 100/60, with a MAP>65 off pressors since 01/26 and fluids 01/27. His presentation is also concerning for acute exacerbation of his COPD with increase in purulent sputum recently - broad spectrum antibiotic coverage was started with ceftazidime, vancomycin and azithromycin pending culture results. Will adjust as needed. Pt is currently afebrile with normal WBC and a TLC since 01/24, will be dc'd pending peripheral access. -Vancomycin, ceftazidime and azithromycin pending culture results -follow up cultures -continue inhalers -Positive MRSA surveillance screen, contact precautions -F/u CXR -Prednisone taper Chest pain with positive troponins Pt c/o chest pain on admit. Troponin trended up on admit, now decreasing to 0.63 with no significant EKG changes. In this septic patient, a type II DC picture is likely (supply-demand mismatch). Cardiology is following and an echo (01/24) shows EF of 50%. terminal supervisor plan is to further investigate with either pharmacologic nuclear stress test or cardiac catheterization. -f/u cardio recommendations -Echo 01/24 EF: 50% -continue ASA/Plavix/Heparin gtt Scrotal Edema with Varicocele As per pt, recent hospitalization for lower extremity angioplasty was complicated with appearance of large scrotal hematoma and left varicocele. Urology was consulted -Continue with scrotal elevation -f/u urology's recommendation DM Pt's glucose has been controlled, with latest bedside readings of 100-140s, with one reading of 190. -Continue insulin regimen FULL CODE DVT PPX: PHARM, MECHANICAL Consistent Carbohydrate 1 Problem List: 1. Sepsis 2. Elevated troponin Pain Ratin Tomorrow's Labs & Rationales: cxr Plan DVT/Prophylaxis: mechanical, pharmacological
[2018-01-27 16:00] VITALS: BP 140/78
--- NOTE | 2018-01-27 16:48 | PN- Cardiology ---
Subjective Subjective: Had issues last night with his RLS, but feeling improved today. Transferred from telemetry to the ICU for septic shock 01/24/2018 with associated type II OK. Objective Vital Signs and I&Os Vital Signs Date Time Temp Pulse Resp B/P B/P Pulse O2 O2 Flow FiO2 Mean Ox Delivery Rate 01/27 1600 98 Nasal 4.0L Cannula 01/27 1600 97.1 112 16 140/78 97 Nasal 4.0L Cannula 01/27 1200 96 Nasal 4.0L Cannula 01/27 1036 114 150/90 01/27 1035 116 150/70 01/27 0800 98 Nasal 4.0L Cannula 01/27 0800 98.0 120 18 140/88 98 Nasal 4.0L Cannula 01/27 0749 99 Nasal 4.0L Cannula 01/27 0400 93 Nasal 4.0L Cannula 01/27 0000 92 Nasal 4.0L Cannula 01/27 0000 98.4 114 22 150/80 92 Nasal 4.0L Cannula 01/26 2051 97.1 127 21 161/99 01/27 2000 97 Nasal 3.0L Cannula 01/26 2000 90 Nasal 3.0L Cannula 01/26 1710 93 Nasal 3.0L Cannula Intake & Output 01/27 1600 16 0800 /16 0000 15 1600 01/26 0800 01/26 0000 Intake Total 1150 477 532 4111 343 2000 Output Total 800 600 400 500 650 500 Balance 350 -760 452 7416 -307 1500 Intake, IV 422 010 0387 243 1400 Intake, Oral 700 100 220 720 100 600 Output, Urine 800 600 400 500 650 500 Patient 162 lb 165 lb Weight Weight Bed scale Measurement Method Physical Exam: Well-developed, overweight elderly male in no acute distress. HEENT: Normocephalic, EOMI, moist mucous membranes. Neck: No JVD, no bruits. Lungs: Decreased breath sounds bilaterally and crackles on the right. Heart: S1, S2 with soft grade 1/6 systolic murmur. No gallop or rub. Abdomen: Soft, nontender, positive bowel sounds. Extremities: No edema. Current Medications: Current Medications Sig/Casey Start time Last Medication Dose Route Stop Time Status Admin Acetaminophen 650 MG Q6PRN PRN 01/24 1345 AC PO Acetaminophen 1,000 MG Q6P PRN 01/24 1345 AC 01/25 N/A 1 UNIT IV 1856 Albuterol Sulfate 3 ML EVERY 4 HRS/AWAKE 01/25 2000 AC 01/27 INH 1350 Alprazolam 0.25 MG ONCE ONE 01/27 1330 CAN PO 01/27 1331 Aspirin 81 MG DAILY 01/24 1607 AC 01/27 PO 1037 Atorvastatin Calcium 20 MG 1700 01/25 1700 AC 01/26 PO 1652 Azithromycin 500 MG DAILY 01/25 0918 AC 01/27 Sodium Chloride 250 ML IV 1038 Baclofen 5 MG ONCE ONE 01/27 0715 DC 01/27 PO 01/27 0716 0807 Baclofen 10 MG QPM 01/27 0015 DC PO Baclofen 10 MG QPM 01/24 2100 AC 01/26 PO 2051 Budesonide/ 2 PUF BID 01/24 2100 AC 01/27 Formoterol Fumarate INH 1037 Ceftazidime 2,000 MG Q12H 01/25 1600 AC 01/27 IV 0500 Clonazepam 1 MG ONCE ONE 01/27 1345 DC 01/27 PO 01/27 1346 1348 Clopidogrel Bisulfate 75 MG DAILY 01/24 1608 AC 01/27 PO 1035 Diclofenac Sodium 50 MG ONCE ONE 01/27 1345 CAN PO 01/27 1346 Enoxaparin Sodium 40 MG DAILY 01/26 1347 AC 01/27 SC 1035 Ferrous Sulfate 325 MG DAILY 01/27 1329 AC PO Gabapentin 600 MG Q8 01/24 1709 AC 01/26 PO 2135 Insulin Aspart 0 TIDAC 01/25 0800 AC 01/27 SC 1230 Ipratropium [place] 2.5 ML EVERY 4 HRS/AWAKE 01/25 2000 AC 01/27 INH 1351 Magnesium Oxide 400 MG DAILY 01/26 0900 AC 01/27 PO 1035 Melatonin 5 MG AT BEDTIME 01/25 2215 AC 01/26 PO 205 Methylprednisolone 125 MG ONCE ONE 01/26 2115 DC 01/26 IV 01/27 2116 213 Metoprolol Tartrate 12.5 MG BID 01/26 2100 AC 01/27 PO 1035 Morphine Sulfate 1 MG Q8P PRN 01/24 1345 AC 01/26 IV 2012 Oxycodone HCl 5 MG ONCE ONE 01/27 1345 DC 01/27 PO 01/27 1346 1348 Prednisone 40 MG DAILY 01/27 1149 AC 01/27 PO 1329 Pregabalin 150 MG ONCE ONE 01/27 1045 DC 01/27 PO 01/27 1046 1102 Sodium Chloride 1,000 ML Q8H 01/24 2345 DC 01/26 IV 0938 Tamsulosin HCl 0.4 MG DAILY 01/25 0900 AC 01/27 PO 1036 Tiotropium [place] 1 PUF DAILY 01/24 1711 AC 01/27 INH 1036 Vancomycin HCl 1,250 MG Q24H 01/25 1000 AC 01/27 Sodium Chloride 250 ML IV 1038 Zolpidem Tartrate 10 MG QPM PRN 01/27 0015 01/27 PO 0023 Results Last 48 Hrs of Labs/Mics: Laboratory Tests 01/27/18 0450: Anion Gap 13, Estimated GFR > 60, Glucose 172 H, Calcium 8.2 L, Phosphorus 2.5 , Magnesium 1.9, Iron 33 L, TIBC 260 L, Ferritin 548.0 H, Total Bilirubin 0.8 , AST 34, ALT 46, Albumin 3.2 L, CBC w Diff MAN DIFF ORDERED, RBC 3.11 L, MCV 90.8, MCH 29.9, MCHC 33.0, RDW 19.5 H, MPV 10.1, Gran % 95.2 H, Lymphocytes % 3.7 L, Monocytes % 1.0 L, Eosinophils % 0.1, Basophils % 0, Absolute Granulocytes 9.7 H, Segmented Neutrophils 90 H, Band Neutrophils 6 H, Absolute Lymphocytes 0.4 L, Lymphocytes 3 L, Monocytes 1 L, Absolute Monocytes 0.1, Absolute Eosinophils 0, Absolute Basophils 0, Platelet Estimate ADEQUATE, Polychromasia 1+ 01/27/18 0130: Troponin I 0.63 *H 01/26/18 2047: Troponin I 0.73 *H 01/26/18 2000: APTT Cancelled 01/26/18 1434: CBC w Diff NO MAN DIFF REQ, RBC 2.77 L, MCV 91.0, MCH 30.1, MCHC 33.0, RDW 18.6 H, MPV 10.1, Gran % 89.7 H, Lymphocytes % 4.8 L, Monocytes % 4.6, Eosinophils % 0.8, Basophils % 0.1, Absolute Granulocytes 10.9 H, Absolute Lymphocytes 0.6 L, Absolute Monocytes 0.6, Absolute Eosinophils 0.1, Absolute Basophils 0 01/26/18 0754: APTT 64 H 01/26/18 0600: Troponin I Cancelled 01/26/18 0600: Anion Gap 10, Estimated GFR > 60, Glucose 107 H, Calcium 7.3 L, Phosphorus 2.6 , Magnesium 1.9, Total Bilirubin 0.5, AST 31, ALT 45, Troponin I 0.70 *H, Albumin 2.6 L, Prealbumin 12.9 L, CBC w Diff NO MAN DIFF REQ, RBC 2.73 L, MCV 90.9, MCH 30.3, MCHC 33.3, RDW 19.7 H, MPV 9.3, Gran % 87.4 H, Lymphocytes % 5.8 L, Monocytes % 5.1, Eosinophils % 1.6, Basophils % 0.1, Absolute Granulocytes 10.2 H, Absolute Lymphocytes 0.7 L, Absolute Monocytes 0.6, Absolute Eosinophils 0.2, Absolute Basophils 0 01/26/18 0007: APTT 42 H 01/25/182014: Troponin I 1.04 *H Recent Imaging Studies: Chest CTA 09/25/2017: 1. No aortic dissection. 2. Multifocal areas of consolidation, greatest in the right middle lobe with air bronchograms. This is suggestive of pneumonia. Follow-up to resolution. 3. Prominent right paratracheal lymph node is likely reactive. ECG 01/27/2018: 1. Sinus rhythm, VPC, nonspecific minor diffuse ST depression. Assessment/Plan Assessment/Plan [id number] w/ hx long-standing tob use (dc'd 1 ppd 48 yrs in 2017), COPD w/ previous exacerbations, previous PNA, HTN, HLD, vasc dz (s/p "angioplasty" 12/26 complicated by: arterial laceration req subsequent surgery, AECOPD, PNA, etc.), & poss previous AF w/o AC who we are asked to evaluate and help manage in regard to c/o SOB, borderline ECGs, CXR c/w PNA, & modestly pos troponin I on the basis of a type II OK 2/2 oxygen supply/demand mismatch described w/: coronary endothelial dysfunction, coronary spasm, coronary embolus, tachy/ bradycardia arrhythmias, anemia, respiratory failure, HTN, hypotension, etc. who became hemodynamically unstable prompting ICU transfer with overall improved status. He does have risk equivalents (vasc dz, DM) and multiple RFs for CAD (HTN, HLD, etc.) so plan is for further OP eval/mgt to exclude significant CAD. Recommendations: * Continue ICU management of HAPNA/AECOPD with O2/TRC, Abx, steroids etc. * Antiplatelet Rx for at risk status for CAD. * Outpatient CAD evaluation. * No evidence of PAF. * DVT prophylaxis. Continue telemetry? Not applicable (In ICU.)
--- NOTE | 2018-01-27 20:32 | RADIOLOGY REPORT ---
EXAMINATION: CHEST 1 VIEW CLINICAL INFORMATION: Follow-up pneumonia. COMPARISON: 01/25/2018. TECHNIQUE: An AP view of the chest is provided. FINDINGS: The cardiac silhouette is stable. A right-sided central venous line is in place. The tip overlies the mid SVC. There is a persistent infiltrate within the lower right hemithorax. There is also retrocardiac airspace disease. The osseous structures are stable. There is evidence of prior right shoulder surgery. IMPRESSION: Persistent infiltrate. Recommendation is for a followup chest series to be obtained following treatment and/or resolution of symptoms to assure resolution of this appearance.
[2018-01-28] VITALS: BP 140/76
[2018-01-28 04:04] LABS: ABSOLUTE BASOPHIL COUNT 0 /CUMM (0.0-0.2); ABSOLUTE EOSINOPHIL COUNT 0 /CUMM (0.0-0.7); ABSOLUTE GRANULOCYTE CT 10.7 /CUMM (1.4-6.5); ABSOLUTE LYMPH COUNT 0.9 /CUMM (1.2-3.4); ABSOLUTE MONOCYTE COUNT 1.1 /CUMM (0.10-0.60); BASOPHIL % 0.1 % (0.0-2.0); EOSINOPHIL % 0 % (0-5); HEMATOCRIT 29.1 % (42-52); MEAN CORPUSCULAR HGB 29.4 PG (27.0-31.0); MEAN CORPUSCULAR HGB CONC 32.5 G/DL (33.0-37.0); MEAN CORPUSCULAR VOLUME 90.2 FL (80.0-94.0); MEAN PLATELET VOLUME 9.8 FL (7.4-10.4); PLATELET COUNT 177 /CUMM (130-400); RBC DISTRIBUTION WIDTH 19.3 % (11.5-14.5); RED BLOOD CELL CT 3.23 /CUMM (4.70-6.10); WHITE BLOOD CELL COUNT 12.7 /CUMM (4.8-10.8)
[2018-01-28 08:00] VITALS: BP 128/72
--- NOTE | 2018-01-28 08:16 | PN- CRCU ---
Sydni TOVAR,Antoinette Deleon 01/28/18 0810: Subjective HPI/Critical Care Issues: The patient is awake and alert. He remains short of breath with minimal exertion. He is reported as being frustrated over not improving more rapidly. The patient's respiratory status however it has improved and he remains on 4 L nasal cannula with saturations in the high 90s. The patient is afebrile. Vital signs are notable for mild hypertension. The patient remains off pressors. Chest x-ray shows persistent right-sided airspace opacity. Objective Current Medications: Current Medications Sig/Casey Start time Last Medication Dose Route Stop Time Status Admin Acetaminophen 650 MG Q6PRN PRN 01/24 1345 AC PO Acetaminophen 1,000 MG Q6P PRN 01/24 1345 AC 01/25 N/A 1 UNIT IV 1856 Albuterol Sulfate 3 ML EVERY 4 HRS/AWAKE 01/25 2000 AC 01/27 INH 2004 Alprazolam 0.25 MG ONCE ONE 01/27 1330 CAN PO 01/27 1331 Aspirin 81 MG DAILY 01/24 1607 AC 01/27 PO 1037 Atorvastatin Calcium 20 MG 1700 01/25 1700 AC 01/27 PO 1721 Azithromycin 500 MG DAILY 01/25 0918 AC 01/27 Sodium Chloride 250 ML IV 1038 Baclofen 10 MG QPM 01/24 2100 AC 01/27 PO 2120 Budesonide/ 2 PUF BID 01/24 2100 AC 01/27 Formoterol Fumarate INH 2121 Ceftazidime 2,000 MG Q12H 01/25 1600 AC 01/28 IV 0318 Clonazepam 1 MG ONCE ONE 01/27 1345 DC 01/27 PO 01/27 1346 1348 Clopidogrel Bisulfate 75 MG DAILY 01/24 1608 AC 01/27 PO 1035 Diclofenac Sodium 50 MG ONCE ONE 01/27 1345 CAN PO 01/27 1346 Enoxaparin Sodium 40 MG DAILY 01/26 1347 AC 01/27 SC 1035 Ferrous Sulfate 325 MG DAILY 01/27 1329 AC 01/27 PO 1721 Gabapentin 600 MG Q8 01/24 1709 AC 01/27 PO 2121 Insulin Aspart 0 TIDAC 01/25 0800 AC 01/27 SC 1727 Ipratropium [place] 2.5 ML EVERY 4 HRS/AWAKE 01/25 2000 AC 01/27 INH 2000 Magnesium Oxide 400 MG DAILY 01/26 0900 AC 01/27 PO 1035 Melatonin 5 MG AT BEDTIME 01/25 2215 AC 01/27 PO 2120 Metoprolol Tartrate 12.5 MG BID 01/26 2100 AC 01/27 PO 2120 Morphine Sulfate 1 MG Q8P PRN 01/24 1345 AC 01/26 IV 2012 Oxycodone HCl 5 MG ONCE ONE 01/27 2130 DC 01/27 PO 01/27 2131 2142 Oxycodone HCl 5 MG ONCE ONE 01/27 1345 DC 01/27 PO 01/27 1346 1348 Prednisone 40 MG DAILY 01/27 1149 AC 01/27 PO 1329 Pregabalin 50 MG .STK-MED ONE 01/27 1059 DC PO 01/27 1100 Pregabalin 150 MG ONCE ONE 01/27 1045 DC 01/27 PO 01/27 1046 1102 Sodium Chloride 1,000 ML Q8H 01/24 2345 DC 01/26 IV 0938 Tamsulosin HCl 0.4 MG DAILY 01/25 0900 AC 01/27 PO 1036 Tiotropium [place] 1 PUF DAILY 01/24 1711 AC 01/27 INH 1036 Vancomycin HCl 1,250 MG Q24H 01/25 1000 AC 01/27 Sodium Chloride 250 ML IV 1038 Zolpidem Tartrate 10 MG QPM PRN 01/27 0015 01/27 PO 0023 Vital Signs & I&O Last 24 Hrs of Vitals and I&O: Vital Signs Date Time Temp Pulse Resp B/P B/P Pulse O2 O2 Flow FiO2 Mean Ox Delivery Rate 01/28 0400 Nasal 4.0L Cannula 01/28 0000 96 Nasal 4.0L Cannula 01/28 0000 97.9 90 12 140/76 96 Nasal 4.0L Cannula 01/27 2120 112 18 156/86 01/27 2004 95 Nasal 4.0L Cannula 01/27 2000 97 Nasal 4.0L Cannula 01/27 1600 98 Nasal 4.0L Cannula 01/27 1600 97.1 112 16 140/78 97 Nasal 4.0L Cannula 01/27 1200 96 Nasal 4.0L Cannula 01/27 1036 114 150/90 01/27 1035 116 150/70 Intake & Output 01/28 1600 01/28 0800 01/28 0000 Intake Total 600 500 Output Total 400 650 Balance 200 -150 Intake, Oral 600 500 Output, Urine 400 650 Physical Exam General Appearance: well developed/nourished, no apparent distress, alert, awake , comfortable Head: atraumatic, normal appearance Neck: normal inspection, supple Respiratory: chest non-tender, no respiratory distress, rhonchi, wheezing Cardiovascular: regular rate/rhythm, edema Gastrointestinal: normal bowel sounds, soft, non-tender, no organomegaly Extremities: normal inspection, normal capillary refill, pedal edema Neurologic/Psych: no motor/sensory deficits, awake, alert, oriented x 3 Cranial Nerves: normal hearing, normal speech Skin: intact, normal color Results Last 24 Hrs of Lab Results: Laboratory Tests 01/28/18 0320: Anion Gap 12, Estimated GFR > 60, Glucose 174 H, Calcium 8.3 L, Phosphorus 3.2 , Magnesium 2.1, Total Bilirubin 0.6, AST 30, ALT 41, Albumin 3.3 L, CBC w Diff MAN DIFF ORDERED, RBC 3.23 L, MCV 90.2, MCH 29.4, MCHC 32.5 L, RDW 19.3 H, MPV 9.8, Gran % 84.0 H, Lymphocytes % 7.1 L, Monocytes % 8.8, Eosinophils % 0, Basophils % 0.1, Absolute Granulocytes 10.7 H, Absolute Lymphocytes 0.9 L, Absolute Monocytes 1.1 H, Absolute Eosinophils 0, Absolute Basophils 0, Platelet Estimate ADEQUATE, Polychromasia 1+ Last 24 Hrs of Micro Results: Cultures remain negative. Impression/Plan Impression/Plan Impression/Plan: 1. Septic shock secondary to hospital-acquired pneumonia. 2. Chest pain with positive troponins, rule out acute coronary syndrome. 3. Scrotal hematoma with varicocele in the setting of recent vascular surgery. 4. Acute exacerbation of COPD. 5. Possible history of atrial fibrillation in the past. 6. Diabetes mellitus. 7. PAD, status post recent vascular surgery resulting in significant hematomas. 8. Anemia without evidence of active bleeding. 9. Hypertension and hyperlipidemia. Recommendations: * Follow-up culture data. * Change to ceftriaxone and azithromycin. Discontinue Vanco. * Encourage oral intake. * Continue with nebs/TRC. * Continue Symbicort and Spiriva. * Taper oxygen down for saturations greater than 92%. * Continue prednisone 40 mg daily. Will taper down quickly. * Monitor urine output, strict I's and O's. * Monitor blood pressure off pressors. * Physical therapy consult. Out of bed to chair and ambulate. * Downgrade to Gen med. * Patient will require follow-up chest x-ray/CT chest to ensure resolution of the right-sided infiltrate. PakNimesh Perezs 01/28/18 0846: Objective Current Medications: Current Medications Sig/Casey Start time Last Medication Dose Route Stop Time Status Admin Acetaminophen 650 MG Q6PRN PRN 01/24 1345 AC PO Acetaminophen 1,000 MG Q6P PRN 01/24 1345 AC 01/25 N/A 1 UNIT IV 1856 Albuterol Sulfate 3 ML EVERY 4 HRS/AWAKE 01/25 2000 AC 01/28 INH 0835 Alprazolam 0.25 MG ONCE ONE 01/27 1330 CAN PO 01/27 1331 Aspirin 81 MG DAILY 01/24 1607 AC 01/27 PO 1037 Atorvastatin Calcium 20 MG 1700 01/25 1700 AC 01/27 PO 1721 Azithromycin 500 MG DAILY 01/25 0918 AC 01/28 Sodium Chloride 250 ML IV 0842 Baclofen 10 MG QPM 01/24 2100 AC 01/27 PO 2120 Budesonide/ 2 PUF BID 01/24 2100 AC 01/27 Formoterol Fumarate INH 2121 Ceftazidime 2,000 MG Q12H 01/25 1600 DC 01/28 IV 0318 Ceftriaxone Sodium 1,000 MG DAILY 01/28 0900 AC IV Clonazepam 1 MG ONCE ONE 01/27 1345 DC 01/27 PO 01/27 1346 1348 Clopidogrel Bisulfate 75 MG DAILY 01/24 1608 AC 01/27 PO 1035 Diclofenac Sodium 50 MG ONCE ONE 01/27 1345 CAN PO 01/27 1346 Enoxaparin Sodium 40 MG DAILY 01/26 1347 AC 01/27 SC 1035 Ferrous Sulfate 325 MG DAILY 01/27 1329 AC 01/27 PO 1721 Gabapentin 600 MG Q8 01/24 1709 AC 01/27 PO 2121 Insulin Aspart 0 TIDAC 01/25 0800 AC 01/27 SC 1727 Ipratropium [place] 2.5 ML EVERY 4 HRS/AWAKE 01/25 2000 AC 01/28 INH 0835 Magnesium Oxide 400 MG DAILY 01/26 0900 AC 01/27 PO 1035 Melatonin 5 MG AT BEDTIME 01/25 2215 AC 01/27 PO 2120 Metoprolol Tartrate 12.5 MG BID 07/15 2100 AC 01/27 PO 2120 Morphine Sulfate 1 MG Q8P PRN 01/24 1345 AC 01/26 IV 2012 Oxycodone HCl 5 MG ONCE ONE 01/27 2130 DC 01/27 PO 01/27 2131 2142 Oxycodone HCl 5 MG ONCE ONE 01/27 1345 DC 01/27 PO 01/27 1346 1348 Prednisone 40 MG DAILY 01/27 1149 AC 01/27 PO 1329 Pregabalin 50 MG .STK-MED ONE 01/27 1059 DC PO 01/27 1100 Pregabalin 150 MG ONCE ONE 01/27 1045 DC 01/27 PO 01/27 1046 1102 Sodium Chloride 1,000 ML Q8H 01/24 2345 DC 01/26 IV 0938 Tamsulosin HCl 0.4 MG DAILY 01/25 0900 AC 01/27 PO 1036 Tiotropium [place] 1 PUF DAILY 01/24 1711 01/27 INH 1036 Vancomycin HCl 1,250 MG Q24H 01/25 1000 DC 01/27 Sodium Chloride 250 ML IV 1038 Zolpidem Tartrate 10 MG QPM PRN 01/27 0015 01/27 PO 0023 Vital Signs & I&O Last 24 Hrs of Vitals and I&O: Vital Signs Date Time Temp Pulse Resp B/P B/P Pulse O2 O2 Flow FiO2 Mean Ox Delivery Rate 01/28 0841 94 Nasal 4.0L Cannula 01/28 0800 97.7 90 18 128/72 97 Nasal 4.0L Cannula 01/28 0400 Nasal 4.0L Cannula 01/28 0000 96 Nasal 4.0L Cannula 01/28 0000 97.9 90 12 140/76 96 Nasal 4.0L Cannula 01/27 2120 112 18 156/86 01/27 2004 95 Nasal 4.0L Cannula 01/27 2000 97 Nasal 4.0L Cannula 01/27 1600 98 Nasal 4.0L Cannula 01/27 1600 97.1 112 16 140/78 97 Nasal 4.0L Cannula 01/27 1200 96 Nasal 4.0L Cannula 01/27 1036 114 150/90 01/27 1035 116 150/70 Intake & Output 01/28 1600 01/28 0800 01/28 0000 Intake Total 600 500 Output Total 400 650 Balance 200 -150 Intake, Oral 600 500 Output, Urine 400 650 Results Last 24 Hrs of Lab Results: Laboratory Tests 01/28/18 0320: Anion Gap 12, Estimated GFR > 60, Glucose 174 H, Calcium 8.3 L, Phosphorus 3.2 , Magnesium 2.1, Total Bilirubin 0.6, AST 30, ALT 41, Albumin 3.3 L, CBC w Diff MAN DIFF ORDERED, RBC 3.23 L, MCV 90.2, MCH 29.4, MCHC 32.5 L, RDW 19.3 H, MPV 9.8, Gran % 84.0 H, Lymphocytes % 7.1 L, Monocytes % 8.8, Eosinophils % 0, Basophils % 0.1, Absolute Granulocytes 10.7 H, Absolute Lymphocytes 0.9 L, Absolute Monocytes 1.1 H, Absolute Eosinophils 0, Absolute Basophils 0, Platelet Estimate ADEQUATE, Polychromasia 1+ 01/28/18 0320: Anion Gap 12, Estimated GFR > 60, Glucose 174 H, Calcium 8.3 L, Phosphorus 3.2 , Magnesium 2.1, Total Bilirubin 0.6, AST 30, ALT 41, Albumin 3.3 L, CBC w Diff MAN DIFF ORDERED, RBC 3.23 L, MCV 90.2, MCH 29.4, MCHC 32.5 L, RDW 19.3 H, MPV 9.8, Gran % 84.0 H, Lymphocytes % 7.1 L, Monocytes % 8.8, Eosinophils % 0, Basophils % 0.1, Absolute Granulocytes 10.7 H, Absolute Lymphocytes 0.9 L, Absolute Monocytes 1.1 H, Absolute Eosinophils 0, Absolute Basophils 0, Platelet Estimate ADEQUATE, Polychromasia 1+ Diagnostic Data CXR Findings: 01/27 EXAM TYPE: RAD - XRY-PORTABLE CHEST XRAY EXAMINATION: CHEST 1 VIEW CLINICAL INFORMATION: Follow-up pneumonia. COMPARISON: 01/25/2018. TECHNIQUE: An AP view of the chest is provided. FINDINGS: The cardiac silhouette is stable. A right-sided central venous line is in place. The tip overlies the mid SVC. There is a persistent infiltrate within the lower right hemithorax. There is also retrocardiac airspace disease. The osseous structures are stable. There is evidence of prior right shoulder surgery. IMPRESSION: Persistent infiltrate. Recommendation is for a followup chest series to be obtained following treatment and/or resolution of symptoms to assure resolution of this appearance. Impression/Plan Impression/Plan Code Status: Full Code
--- NOTE | 2018-01-28 08:41 | PN- Resident CRCU ---
Subjective HPI/CRCU Issues: Septic shock 2/2 hospital acquired pneumonia, resolved Chest Pain with positive troponins AECOPD Scrotal Hematoma with varicocele H/o DM H/o Restless Leg Syndrome, on baclofen and lyrica. 24 Hour Events: Pt seen and examined at bedside this am. No complains overnight - claims had a good night's sleep. Objective Vital Signs & I&O Last 8 Hrs of Vitals and I&O: Laboratory Tests 01/28 0320 Chemistry Sodium (137 - 145 mmol/L) 143 Potassium (3.5 - 5.1 mmol/L) 4.3 Chloride (98 - 107 mmol/L) 104 Carbon Dioxide (22 - 30 mmol/L) 26 Anion Gap (5 - 16) 12 BUN (9 - 20 mg/dL) 30 H Creatinine (0.7 - 1.2 mg/dL) 1.0 Estimated GFR (>60 ml/min) > 60 Glucose (65 - 99 mg/dL) 174 H Calcium (8.4 - 10.2 mg/dL) 8.3 L Phosphorus (2.5 - 4.5 mg/dL) 3.2 Magnesium (1.6 - 2.3 mg/dL) 2.1 Total Bilirubin (0.2 - 1.3 mg/dL) 0.6 AST (17 - 59 U/L) 30 ALT (21 - 72 U/L) 41 Albumin (3.5 - 5.0 g/dL) 3.3 L Hematology CBC w Diff MAN DIFF ORDERED WBC (4.8 - 10.8 /CUMM) 12.7 H RBC (4.70 - 6.10 /CUMM) 3.23 L Hgb (14.0 - 18.0 G/DL) 9.5 L Hct (42 - 52 %) 29.1 L MCV (80.0 - 94.0 FL) 90.2 MCH (27.0 - 31.0 PG) 29.4 MCHC (33.0 - 37.0 G/DL) 32.5 L RDW (11.5 - 14.5 %) 19.3 H Plt Count (130 - 400 /CUMM) 177 MPV (7.4 - 10.4 FL) 9.8 Gran % (42.2 - 75.2 %) 84.0 H Lymphocytes % (20.5 - 51.1 %) 7.1 L Monocytes % (1.7 - 9.3 %) 8.8 Eosinophils % (0 - 5 %) 0 Basophils % (0.0 - 2.0 %) 0.1 Absolute Granulocytes (1.4 - 6.5 /CUMM) 10.7 H Absolute Lymphocytes (1.2 - 3.4 /CUMM) 0.9 L Absolute Monocytes (0.10 - 0.60 /CUMM) 1.1 H Absolute Eosinophils (0.0 - 0.7 /CUMM) 0 Absolute Basophils (0.0 - 0.2 /CUMM) 0 Platelet Estimate (ADEQUATE) ADEQUATE Polychromasia 1+ Laboratory Tests 01/28/18 0320: Anion Gap 12, Estimated GFR > 60, Glucose 174 H, Calcium 8.3 L, Phosphorus 3.2 , Magnesium 2.1, Total Bilirubin 0.6, AST 30, ALT 41, Albumin 3.3 L, CBC w Diff MAN DIFF ORDERED, RBC 3.23 L, MCV 90.2, MCH 29.4, MCHC 32.5 L, RDW 19.3 H, MPV 9.8, Gran % 84.0 H, Lymphocytes % 7.1 L, Monocytes % 8.8, Eosinophils % 0, Basophils % 0.1, Absolute Granulocytes 10.7 H, Absolute Lymphocytes 0.9 L, Absolute Monocytes 1.1 H, Absolute Eosinophils 0, Absolute Basophils 0, Platelet Estimate ADEQUATE, Polychromasia 1+ Intake & Output 01/28 1600 Intake Total Output Total Balance Patient 176 lb Weight Weight Bed scale Measurement Method Exam General Appearance: well developed/nourished, no apparent distress, alert, awake , comfortable Head: atraumatic, normal appearance Neck: normal inspection, supple Respiratory: normal breath sounds, chest non-tender, no respiratory distress, lungs clear Cardiovascular: regular rate/rhythm Gastrointestinal: normal bowel sounds, soft, non-tender, no organomegaly Extremities: normal inspection, normal capillary refill Cranial Nerves: normal hearing, normal speech Current Medications: Current Medications Sig/Casey Start time Last Medication Dose Route Stop Time Status Admin Acetaminophen 650 MG Q6PRN PRN 01/24 1345 AC PO Acetaminophen 1,000 MG Q6P PRN 01/24 1345 AC 01/25 N/A 1 UNIT IV 1856 Albuterol Sulfate 3 ML EVERY 4 HRS/AWAKE 01/25 2000 AC 01/28 INH 0835 Alprazolam 0.25 MG ONCE ONE 01/27 1330 CAN PO 01/27 1331 Aspirin 81 MG DAILY 01/24 1607 AC 01/28 PO 1011 Atorvastatin Calcium 20 MG 1700 01/25 1700 AC 01/27 PO 1721 Azithromycin 500 MG DAILY 01/25 0918 AC 01/28 Sodium Chloride 250 ML IV 0842 Baclofen 10 MG QPM 01/24 2100 AC 01/27 PO 2120 Budesonide/ 2 PUF BID 01/24 2100 AC 01/28 Formoterol Fumarate INH 1012 Ceftazidime 2,000 MG Q12H 01/25 1600 DC 01/28 IV 0318 Ceftriaxone Sodium 1,000 MG DAILY 01/28 0900 AC 01/28 IV 1014 Clonazepam 1 MG ONCE ONE 01/27 1345 DC 01/27 PO 01/27 1346 1348 Clopidogrel Bisulfate 75 MG DAILY 01/24 1608 AC 01/28 PO 1011 Diclofenac Sodium 50 MG ONCE ONE 01/27 1345 CAN PO 01/27 1346 Enoxaparin Sodium 40 MG DAILY 01/26 1347 AC 01/28 SC 1012 Ferrous Sulfate 325 MG DAILY 01/27 1329 AC 01/28 PO 1011 Gabapentin 600 MG Q8 01/24 1709 AC 01/27 PO 2121 Insulin Aspart 0 TIDAC 01/25 0800 AC 01/27 SC 1727 Ipratropium [place] 2.5 ML EVERY 4 HRS/AWAKE 01/24 2000 AC 01/28 INH 0835 Magnesium Oxide 400 MG DAILY 01/26 0900 AC 01/28 PO 1011 Melatonin 5 MG AT BEDTIME 01/25 2215 AC 01/27 PO 2120 Metoprolol Tartrate 12.5 MG BID 01/26 2100 AC 01/28 PO 1011 Morphine Sulfate 1 MG Q8P PRN 01/24 1345 AC 01/26 IV 2012 Oxycodone HCl 5 MG ONCE ONE 01/27 2130 DC 01/27 PO 01/27 2131 2142 Oxycodone HCl 5 MG ONCE ONE 01/27 1345 DC 01/27 PO 01/27 1346 1348 Prednisone 40 MG DAILY 01/27 1149 AC 01/28 PO 1011 Pregabalin 50 MG .STK-MED ONE 01/27 1059 DC PO 01/27 1100 Sodium Chloride 1,000 ML Q8H 01/24 2345 DC 01/26 IV 0938 Tamsulosin HCl 0.4 MG DAILY 01/25 0900 AC 01/28 PO 1011 Tiotropium [place] 1 PUF DAILY 01/24 1711 AC 01/28 INH 1012 Vancomycin HCl 1,250 MG Q24H 01/25 1000 DC 01/27 Sodium Chloride 250 ML IV 1038 Zolpidem Tartrate 10 MG QPM PRN 01/27 0015 AC 01/27 PO 0023 CXR Findings: 01/27 -PORTABLE CHEST XRAY EXAMINATION: CHEST 1 VIEW CLINICAL INFORMATION: Follow-up pneumonia. COMPARISON: 01/25/2018. TECHNIQUE: An AP view of the chest is provided. FINDINGS: The cardiac silhouette is stable. A right-sided central venous line is in place. The tip overlies the mid SVC. There is a persistent infiltrate within the lower right hemithorax. There is also retrocardiac airspace disease. The osseous structures are stable. There is evidence of prior right shoulder surgery. IMPRESSION: Persistent infiltrate. Recommendation is for a followup chest series to be obtained following treatment and/or resolution of symptoms to assure resolution of this appearance. Impression/Plan Impression/Problem List Impression: Mr. Tolentino is a 72 y/o M with a significant PMH of COPD, PAD, DM, HTN and HLD who arrived to the ED complaining of shortness of breath, chest pain and productive cough. Of note the pt has a prior hospitalization in [place] for lower extremity angioplasty. On the ED he was found to be febrile, tachycardic, tachypneic with WBC of 12.2 and a CXR that showed R lobe consolidation. Pt was admitted to the telemetry unit on 01/24 for management of sepsis and pneumonia of likely gram negative etiology due to recent hospitalization. That same afternoon pt was found to be hypotensive with SBP in the 60s. A TLC was placed and pt was transferred to the ICU for management of septic shock. IMPRESSIONS Septic shock 2/2 hospital acquired pneumonia Chest Pain with positive troponins AECOPD Scrotal Hematoma with varicocele H/o DM H/o Restless Leg Syndrome, on baclofen and lyrica. Septic shock 2/2 hospital acquired pneumonia/AECOPD Patient with a clinical picture of sepsis on arrival to ED with leukocytosis, tachypnea, tachycardia. CXR showed R Lobe consolidation, and with a recent hospitalization is concerning for HAP by gram negative organisms. His BP is currently maintaining over 100/60, with a MAP>65 off pressors since 01/26 and fluids 01/27. His presentation is also concerning for acute exacerbation of his COPD with increase in purulent sputum recently - broad spectrum antibiotic coverage was started with ceftazidime, vancomycin and azithromycin pending culture results, now switched to only ceftriaxone/azithro. Pt is currently afebrile with normal WBC and a TLC with no warmth/erythema surrounding it since 01/24, will be dc'd pending peripheral access. Multiple attempts were made on to achieve peripheral access but were unsuccesful. Peripheral access was achieved on 01/28, and TLC was removed on 01/28 -Antibiotic coverage with ceftriaxone and azithromycin -Lower Resp Cult reports growth of yeast on 01/28, possible contamination -continue inhalers -Positive MRSA surveillance screen, contact precautions -F/u CXR -Prednisone taper -TLC removed on 01/28 Chest pain with positive troponins Pt c/o chest pain on admit. Troponin trended up on admit, now decreasing to 0.63 with no significant EKG changes. In this septic patient, a type II [place] picture is likely (supply-demand mismatch). Cardiology is following and an echo (01/24) shows EF of 50%. 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 -f/u cardio recommendations -Echo 01/24 EF: 50% -continue ASA/Plavix Scrotal Edema with Varicocele As per pt, recent hospitalization for lower extremity angioplasty was complicated with appearance of large scrotal hematoma and left varicocele. Urology was consulted. -Continue with scrotal elevation -f/u urology's recommendation DM Pt's glucose has been controlled, with latest bedside readings of 140-170s. -Continue insulin regimen FULL CODE DVT PPX: PHARM, MECHANICAL Consistent Carbohydrate 1 Problem List: 1. COPD exacerbation 2. Sepsis 3. Pneumonia Pain Ratin Tomorrow's Labs & Rationales: . Plan DVT/Prophylaxis: mechanical, pharmacological
--- NOTE | 2018-01-28 11:52 | PN- Cardiology ---
Subjective Subjective: Breathing and cough a little better today. No evidence of PAF. Objective Vital Signs and I&Os Vital Signs Date Time Temp Pulse Resp B/P B/P Pulse O2 O2 Flow FiO2 Mean Ox Delivery Rate 01/28 1011 104 128/80 01/28 0841 94 Nasal 4.0L Cannula 01/28 0800 97.7 90 18 128/72 97 Nasal 4.0L Cannula 01/28 0400 Nasal 4.0L Cannula 01/28 0000 96 Nasal 4.0L Cannula 01/28 0000 97.9 90 12 140/76 96 Nasal 4.0L Cannula 01/27 2120 112 18 156/86 01/27 2004 95 Nasal 4.0L Cannula 01/27 2000 97 Nasal 4.0L Cannula 01/27 1600 98 Nasal 4.0L Cannula 01/27 1600 97.1 112 16 140/78 97 Nasal 4.0L Cannula 01/27 1200 96 Nasal 4.0L Cannula Intake & Output 01/28 1600 01/28 0800 01/28 0000 01/27 1600 01/27 0800 01/27 0000 Intake Total 314 644 4940 100 620 Output Total 400 650 800 600 400 Balance 200 -150 350 -500 220 Intake, IV 450 400 Intake, Oral 600 500 700 100 220 Output, Urine 400 650 800 600 400 Patient 176 lb 176 lb 162 lb Weight Weight Bed scale Bed scale Measurement Method Physical Exam: Well-developed, overweight elderly male in no acute distress. HEENT: Normocephalic, EOMI, moist mucous membranes. Neck: No JVD, no bruits. Lungs: Decreased breath sounds bilaterally and crackles on the right. Heart: S1, S2 with soft grade 1/6 systolic murmur. No gallop or rub. Abdomen: Soft, nontender, positive bowel sounds. Extremities: No edema. Current Medications: Current Medications Sig/Casey Start time Last Medication Dose Route Stop Time Status Admin Acetaminophen 650 MG Q6PRN PRN 01/24 1345 AC PO Acetaminophen 1,000 MG Q6P PRN 01/24 1345 AC 01/25 N/A 1 UNIT IV 1856 Albuterol Sulfate 3 ML EVERY 4 HRS/AWAKE 01/25 2000 AC 01/28 INH 0835 Alprazolam 0.25 MG ONCE ONE 01/27 1330 CAN PO 01/27 1331 Aspirin 81 MG DAILY 01/24 1607 AC 01/28 PO 1011 Atorvastatin Calcium 20 MG 1700 07/14 1700 AC 01/27 PO 1721 Azithromycin 500 MG DAILY 01/25 0918 AC 01/28 Sodium Chloride 250 ML IV 0842 Baclofen 10 MG QPM 01/24 2100 AC 01/27 PO 2120 Budesonide/ 2 PUF BID 01/24 2100 AC 01/28 Formoterol Fumarate INH 1012 Ceftazidime 2,000 MG Q12H 01/25 1600 DC 01/28 IV 0318 Ceftriaxone Sodium 1,000 MG DAILY 01/28 0900 AC 01/28 IV 1014 Clonazepam 1 MG BID PRN 01/28 1145 AC PO 02/04 1144 Clonazepam 1 MG ONCE ONE 01/27 1345 DC 01/27 PO 01/27 1346 1348 Clopidogrel Bisulfate 75 MG DAILY 01/24 1608 AC 01/28 PO 1011 Diclofenac Sodium 50 MG ONCE ONE 01/27 1345 CAN PO 01/27 1346 Enoxaparin Sodium 40 MG DAILY 01/26 1347 AC 01/28 SC 1012 Ferrous Sulfate 325 MG DAILY 01/27 1329 AC 01/28 PO 1011 Gabapentin 600 MG Q8 01/24 1709 DC 01/27 PO 2121 Insulin Aspart 0 TIDAC 01/25 0800 AC 01/27 SC 1727 Ipratropium [place] 2.5 ML EVERY 4 HRS/AWAKE 01/24 2000 AC 01/28 INH 0835 Magnesium Oxide 400 MG DAILY 01/26 0900 AC 01/28 PO 1011 Melatonin 5 MG AT BEDTIME 01/25 2215 AC 01/27 PO 2120 Metoprolol Tartrate 12.5 MG BID 01/26 2100 AC 01/28 PO 1011 Morphine Sulfate 1 MG Q8P PRN 01/24 1345 AC 01/26 IV 2012 Oxycodone HCl 5 MG Q12P PRN 01/28 1145 AC PO Oxycodone HCl 5 MG ONCE ONE 01/27 2130 DC 01/27 PO 01/27 2131 2142 Oxycodone HCl 5 MG ONCE ONE 01/27 1345 DC 01/27 PO 01/27 1346 1348 Prednisone 40 MG DAILY 01/27 1149 AC 01/28 PO 1011 Tamsulosin HCl 0.4 MG DAILY 01/25 0900 AC 01/28 PO 1011 Tiotropium [place] 1 PUF DAILY 01/24 1711 AC 01/28 INH 1012 Vancomycin HCl 1,250 MG Q24H 01/25 1000 DC 01/27 Sodium Chloride 250 ML IV 1038 Zolpidem Tartrate 10 MG QPM PRN 01/27 0015 AC 01/27 PO 0023 Results Last 48 Hrs of Labs/Mics: Laboratory Tests 01/28/18 0320: Anion Gap 12, Estimated GFR > 60, Glucose 174 H, Calcium 8.3 L, Phosphorus 3.2 , Magnesium 2.1, Total Bilirubin 0.6, AST 30, ALT 41, Albumin 3.3 L, CBC w Diff MAN DIFF ORDERED, RBC 3.23 L, MCV 90.2, MCH 29.4, MCHC 32.5 L, RDW 19.3 H, MPV 9.8, Gran % 84.0 H, Lymphocytes % 7.1 L, Monocytes % 8.8, Eosinophils % 0, Basophils % 0.1, Absolute Granulocytes 10.7 H, Absolute Lymphocytes 0.9 L, Absolute Monocytes 1.1 H, Absolute Eosinophils 0, Absolute Basophils 0, Platelet Estimate ADEQUATE, Polychromasia 1+ 01/27/18 0450: Anion Gap 13, Estimated GFR > 60, Glucose 172 H, Calcium 8.2 L, Phosphorus 2.5 , Magnesium 1.9, Iron 33 L, TIBC 260 L, Ferritin 548.0 H, Total Bilirubin 0.8 , AST 34, ALT 46, Albumin 3.2 L, CBC w Diff MAN DIFF ORDERED, RBC 3.11 L, MCV 90.8, MCH 29.9, MCHC 33.0, RDW 19.5 H, MPV 10.1, Gran % 95.2 H, Lymphocytes % 3.7 L, Monocytes % 1.0 L, Eosinophils % 0.1, Basophils % 0, Absolute Granulocytes 9.7 H, Segmented Neutrophils 90 H, Band Neutrophils 6 H, Absolute Lymphocytes 0.4 L, Lymphocytes 3 L, Monocytes 1 L, Absolute Monocytes 0.1, Absolute Eosinophils 0, Absolute Basophils 0, Platelet Estimate ADEQUATE, Polychromasia 1+ 01/27/18 0130: Troponin I 0.63 *H 01/26/187: Troponin I 0.73 *H 01/26/18 2000: APTT Cancelled 01/26/18 1434: CBC w Diff NO MAN DIFF REQ, RBC 2.77 L, MCV 91.0, MCH 30.1, MCHC 33.0, RDW 18.6 H, MPV 10.1, Gran % 89.7 H, Lymphocytes % 4.8 L, Monocytes % 4.6, Eosinophils % 0.8, Basophils % 0.1, Absolute Granulocytes 10.9 H, Absolute Lymphocytes 0.6 L, Absolute Monocytes 0.6, Absolute Eosinophils 0.1, Absolute Basophils 0 Recent Imaging Studies: CXR 01/27/2018: 1. Persistent infiltrate. 2. Recommendation is for a followup chest series to be obtained following treatment and/or resolution of symptoms to assure resolution of this appearance. Assessment/Plan Assessment/Plan [id number] w/ hx long-standing tob use (dc'd 1 ppd 50 yrs in 2017), COPD w/ previous exacerbations, previous PNA, HTN, HLD, vasc dz (s/p "angioplasty" 12/26 complicated by: arterial laceration req subsequent surgery, AECOPD, PNA, etc.), & poss previous AF w/o AC who we are asked to evaluate and help manage in regard to c/o SOB, borderline ECGs, CXR c/w PNA, & modestly pos troponin I on the basis of a type II [place] 2/2 oxygen supply/demand mismatch, who became hemodynamically unstable prompting ICU transfer w/ overall improved status. He does have risk equivalents (vasc dz, DM) & multiple RFs for CAD (HTN, HLD, etc.) so plan for further OP eval/mgt to exclude significant CAD. Recommendations: * Continue ICU mgt of HAPNA/AECOPD with O2/TRC, Abx, steroids etc. * Antiplatelet therapy for at risk status for CAD. * Outpatient CAD eval when appropriate. * DVT prophylaxis. Continue telemetry? Not applicable (In ICU.)
[2018-01-28 12:00] VITALS: BP 130/70
[2018-01-28 16:00] VITALS: BP 130/62
[2018-01-28 21:26] VITALS: BP 140/88
[2018-01-29 06:40] VITALS: BP 160/80
--- NOTE | 2018-01-29 07:32 | PN- Housestaff ---
See Addendum Subjective Follow-up For: Pneumonia and scrotal swelling Subjective: No acute events overnight, afebrile. Patient was transferred from ICU yesterday states he did not sleep well because he has Restless leg syndrome, patient states he continues to have a cough, coughing up greenish glob very little of it. Patient denies fever night sweats or chills patient is here from [place], had a procedure on left leg to remove atherosclerosis, complication of the procedure was he states blood vessel was nicked leading to severe scrotal swelling, states he is much improved now previously was unable to sit on the toilet was sitting upright this morning. Review of Systems Constitutional: Reports: see HPI. Objective Last 24 Hrs of Vital Signs/I&O Vital Signs Date Time Temp Pulse Resp B/P B/P Pulse O2 O2 Flow FiO2 Mean Ox Delivery Rate 01/29 0640 97.5 102 20 160/80 99 Nasal Cannula 01/29 0000 Nasal 2.0L Cannula 01/28 2126 98.1 107 20 140/88 98 Nasal 2.0L Cannula 01/28 2106 96 Nasal 2.0L Cannula 01/28 2023 107 140/88 01/28 2004 98 Nasal 2.0L Cannula 01/28 1600 98.1 22 130/62 92 Room Air 01/28 1553 90 Nasal 2.0L Cannula 01/28 1200 97.6 100 20 130/70 96 Nasal 4.0L Cannula 01/28 1011 104 128/80 01/28 0841 94 Nasal 4.0L Cannula 01/28 0800 97.7 90 18 128/72 97 Nasal 4.0L Cannula Intake & Output 01/29 0800 01/29 0000 01/28 1600 Intake Total 240 110 780 Output Total 300 Balance 240 110 480 Intake, IV 10 300 Intake, Oral 240 100 480 Number 0 1 Bowel Movements Output, Urine 300 Patient 176 lb Weight Weight Bed scale Measurement Method Physical Exam General Appearance: Alert, Oriented X3, Cooperative Skin: Large hematoma on left medial thing , Previous surgical scars on right thigh HEENT: Atraumatic, EOMI Neck: Supple, +2 Carotid Pulse wo Bruit Cardiovascular: Regular Rate, Normal S1, Normal S2 Reproductive (MALE) Swollen Scrotum, non-tender Assessment/Plan Assessment: Mr. Tolentino is a 72 y/o M with a significant PMH of COPD, PAD, DM, HTN and HLD who arrived to the ED complaining of shortness of breath, chest pain and productive cough. Of note the pt has a prior hospitalization in [place] for lower extremity angioplasty, with subsequent scrotal swelling. Patient was in ICU, transferred to general medicine after stabilization of blood pressures. Problem list: 1. Pneumonia 2. Septic Shock 3. Type II Myocardial Infarction 4. Scrotal edema with Varicocele 5. Anemia 6. Hypertension 7. Hyperlipidemia 8. COPD 9. Restless Syndrome #Pneumonia: Most likely associated with recent hospitalization in [place]. Due to Gram positive bacteria. Strep pneumo and Legionella antigen is negative. Plan: -Azithromycin day 1/ -IV Ceftriaxone day 2 #Septic Shock: 2/2 pneumonia resolved #Type II Myocardial infarction: Tropinin 0.63 on 01/27/18. Patient has multiple RF for ACS. plan: - Cardiology is following, input is highly appreciated - Plavix 75mg - Aspirin 81mg #Scrotal Swelling with Left sided Varicocele plan: - Urology is following patient, reccomend to keep scrotum elevated and padding. Input is highly appreciated #Anemia: Low IRON and TIBC, evelated Ferritin- Anemia of Chronic disease. No active bleeding, patient is asymptomatic plan - continue to monitor patient #hypertension plan: Hydrocholrothiazide 25mg Losartan 50mg Metoprolol 12.5 BID #Hyperlipidemia Plan -20mg #COPD: plan - TRC - Nebs #Restless Leg Syndrome plan - Ropinirole 2mg Problem List: 1. Pneumonia Pain Ratin Pain Location: n/a Pain Goal: Remain pain free Pain Plan: tylenol Tomorrow's Labs & Rationales: none
--- NOTE | 2018-01-29 07:37 | Transfer of Care Summary ---
Hospital Course Course Hospital Course: Reason for ICU admission: septic shock 2/2 hospital acquired pneumonia History of presenting illness: Mr. Tolentino is a 72 y/o M with a significant PMH of COPD, PAD, DM, HTN and HLD who arrived to the ED complaining of shortness of breath, chest pain and productive cough. On the ED he was found to be febrile, tachycardic, tachypneic with WBC of 12.2 and a CXR that showed R lobe consolidation. That same afternoon pt was found to be hypotensive with SBP in the 60s. A TLC was placed and pt was transferred to the ICU for management of septic shock. Interval events in the ICU: 2-3 sentences Mechanical ventilation: No NIPPV: No Antibiotics plan: Ceftriaxone and Azithromycin (day #4) Catheters/ Lines plan: R IJ TLC dc'd on 01/28 Things to be followed up in the floor: f/u cultures, ceftriaxone and azithromycin (day #4). Nutrition: Consistent Carbohydrate 1 DVT prophylaxis: PHARM/Mechanical Code status: FULL CODE Pertinent Lab Results: Intake & Output 01/29 0400 01/28 0400 01/27 0400 Intake Total 839 622 2690 500 1250 620 Output Total 549 707 5843 400 Balance 700 110 680 -150 -150 220 Intake, IV 0 10 300 450 400 Intake, Oral 740 044 6812 500 800 220 Number 0 1 Bowel Movements Output, Urine 738 389 7379 400 Patient 184 lb 176 lb 162 lb Weight Weight Bed scale Bed scale Bed scale Measurement Method Laboratory Tests 01/29 01/28 0900 0320 Chemistry Sodium (137 - 145 mmol/L) 143 143 Potassium (3.5 - 5.1 mmol/L) 4.0 4.3 Chloride (98 - 107 mmol/L) 102 104 Carbon Dioxide (22 - 30 mmol/L) 28 26 Anion Gap (5 - 16) 14 12 BUN (9 - 20 mg/dL) 34 H 30 H Creatinine (0.7 - 1.2 mg/dL) 1.1 1.0 Estimated GFR (>60 ml/min) > 60 > 60 Glucose (65 - 99 mg/dL) 107 H 174 H Calcium (8.4 - 10.2 mg/dL) 8.6 8.3 L Phosphorus (2.5 - 4.5 mg/dL) 3.3 3.2 Magnesium (1.6 - 2.3 mg/dL) 2.0 2.1 Total Bilirubin (0.2 - 1.3 mg/dL) 0.5 0.6 AST (17 - 59 U/L) 26 30 ALT (21 - 72 U/L) 45 41 Albumin (3.5 - 5.0 g/dL) 3.2 L 3.3 L Hematology CBC w Diff NO MAN DIFF REQ MAN DIFF ORDERED WBC (4.8 - 10.8 /CUMM) 12.5 H 12.7 H RBC (4.70 - 6.10 /CUMM) 3.20 L 3.23 L Hgb (14.0 - 18.0 G/DL) 9.4 L 9.5 L Hct (42 - 52 %) 28.9 L 29.1 L MCV (80.0 - 94.0 FL) 90.2 90.2 MCH (27.0 - 31.0 PG) 29.2 29.4 MCHC (33.0 - 37.0 G/DL) 32.4 L 32.5 L RDW (11.5 - 14.5 %) 19.1 H 19.3 H Plt Count (130 - 400 /CUMM) 219 177 MPV (7.4 - 10.4 FL) 10.0 9.8 Gran % (42.2 - 75.2 %) 73.6 84.0 H Lymphocytes % (20.5 - 51.1 %) 13.3 L 7.1 L Monocytes % (1.7 - 9.3 %) 12.5 H 8.8 Eosinophils % (0 - 5 %) 0.5 0 Basophils % (0.0 - 2.0 %) 0.1 0.1 Absolute Granulocytes (1.4 - 6.5 /CUMM) 9.2 H 10.7 H Absolute Lymphocytes (1.2 - 3.4 /CUMM) 1.7 0.9 L Absolute Monocytes (0.10 - 0.60 /CUMM) 1.6 H 1.1 H Absolute Eosinophils (0.0 - 0.7 /CUMM) 0.1 0 Absolute Basophils (0.0 - 0.2 /CUMM) 0 0 Platelet Estimate (ADEQUATE) ADEQUATE Polychromasia 1+ 01/27 01/27 01/26 0450 0130 2047 Chemistry Sodium (137 - 145 mmol/L) 142 Potassium (3.5 - 5.1 mmol/L) 4.5 Chloride (98 - 107 mmol/L) 106 Carbon Dioxide (22 - 30 mmol/L) 23 Anion Gap (5 - 16) 13 BUN (9 - 20 mg/dL) 22 H Creatinine (0.7 - 1.2 mg/dL) 0.8 Estimated GFR (>60 ml/min) > 60 Glucose (65 - 99 mg/dL) 172 H Calcium (8.4 - 10.2 mg/dL) 8.2 L Phosphorus (2.5 - 4.5 mg/dL) 2.5 Magnesium (1.6 - 2.3 mg/dL) 1.9 Iron (49 - 181 ug/dL) 33 L TIBC (261 - 462 ug/dL) 260 L Ferritin (17.9 - 464 ng/mL) 548.0 H Total Bilirubin (0.2 - 1.3 mg/dL) 0.8 AST (17 - 59 U/L) 34 ALT (21 - 72 U/L) 46 Troponin I (<0.11 ng/ml) 0.63 *H 0.73 *H Albumin (3.5 - 5.0 g/dL) 3.2 L Hematology CBC w Diff MAN DIFF ORDERED WBC (4.8 - 10.8 /CUMM) 10.1 RBC (4.70 - 6.10 /CUMM) 3.11 L Hgb (14.0 - 18.0 G/DL) 9.3 L Hct (42 - 52 %) 28.2 L MCV (80.0 - 94.0 FL) 90.8 MCH (27.0 - 31.0 PG) 29.9 MCHC (33.0 - 37.0 G/DL) 33.0 RDW (11.5 - 14.5 %) 19.5 H Plt Count (130 - 400 /CUMM) 140 MPV (7.4 - 10.4 FL) 10.1 Gran % (42.2 - 75.2 %) 95.2 H Lymphocytes % (20.5 - 51.1 %) 3.7 L Monocytes % (1.7 - 9.3 %) 1.0 L Eosinophils % (0 - 5 %) 0.1 Basophils % (0.0 - 2.0 %) 0 Absolute Granulocytes (1.4 - 6.5 /CUMM) 9.7 H Segmented Neutrophils (42.2 - 75.2 %) 90 H Band Neutrophils (0.0 - 5.0 %) 6 H Absolute Lymphocytes (1.2 - 3.4 /CUMM) 0.4 L Lymphocytes (20.5 - 51.1 %) 3 L Monocytes (1.7 - 9.3 %) 1 L Absolute Monocytes (0.10 - 0.60 /CUMM) 0.1 Absolute Eosinophils (0.0 - 0.7 /CUMM) 0 Absolute Basophils (0.0 - 0.2 /CUMM) 0 Platelet Estimate (ADEQUATE) ADEQUATE Polychromasia 1+ 01/27 2000 Coagulation APTT Cancelled Assessment/Plan: Mr. Tolentino is a 72 y/o M with a significant PMH of COPD, PAD, DM, HTN and HLD who arrived to the ED complaining of shortness of breath, chest pain and productive cough. Of note the pt has a prior hospitalization in [place] for lower extremity angioplasty. On the ED he was found to be febrile, tachycardic, tachypneic with WBC of 12.2 and a CXR that showed R lobe consolidation. Pt was admitted to the telemetry unit on 01/24 for management of sepsis and pneumonia of likely gram negative etiology due to recent hospitalization. That same afternoon pt was found to be hypotensive with SBP in the 60s. A TLC was placed and pt was transferred to the ICU for management of septic shock. Patient stay during the ICU required the use of pressors (phenylephrine and norepi), however pressor support was discontinued soon after on the same day mantaining MAP>65. The patient was under broad antibiotic coverage concerning for hospital acquired pneumonia due to his recent hospitalization though the cultures did grow yeast, possibly contamination. As such, vancomycin and ceftazidime were discontinued and ceftriaxone and azithromycin were continued. During his stay, troponins did trend up, though likely due to supply-demand mismatch in the setting of septic shock. Upon resolution of septic shock, his TLC was removed and troponins trended down. He was then transferred to [facility] for continued management. IMPRESSIONS Septic shock 2/2 hospital acquired pneumonia, resolved Chest Pain with positive troponins AECOPD Scrotal Hematoma with varicocele H/o DM H/o Restless Leg Syndrome, on baclofen and lyrica. Septic shock 2/2 hospital acquired pneumonia/AECOPD Patient with a clinical picture of sepsis on arrival to ED with leukocytosis, tachypnea, tachycardia. CXR showed R Lobe consolidation, and with a recent hospitalization is concerning for HAP by gram negative organisms. His BP is currently maintaining over 100/60, with a MAP>65 off pressors since 01/26 and fluids 01/27. His presentation is also concerning for acute exacerbation of his COPD with increase in purulent sputum recently - broad spectrum antibiotic coverage was started with ceftazidime, vancomycin and azithromycin pending culture results, now switched to only ceftriaxone/azithro. Pt is currently afebrile with normal WBC and a TLC with no warmth/erythema surrounding it since 01/24, will be dc'd pending peripheral access. Multiple attempts were made on to achieve peripheral access but were unsuccesful. Peripheral access was achieved on 01/28, and TLC was removed on 01/28 -Antibiotic coverage with ceftriaxone and azithromycin -Lower Resp Cult reports growth of yeast on 01/28, possible contamination -continue inhalers -Positive MRSA surveillance screen, contact precautions -F/u CXR -Prednisone taper -TLC removed on 01/28 Chest pain with positive troponins Pt c/o chest pain on admit. Troponin trended up on admit, now decreasing to 0.63 with no significant EKG changes. In this septic patient, a type II [place] picture is likely (supply-demand mismatch). Cardiology is following and an echo (01/24) shows EF of 50%. correction plan is to further investigate with either pharmacologic nuclear stress test or cardiac catheterization. -f/u cardio recommendations -Echo 01/24 EF: 50% -continue ASA/Plavix Scrotal Edema with Varicocele As per pt, recent hospitalization for lower extremity angioplasty was complicated with appearance of large scrotal hematoma and left varicocele. Urology was consulted. -Continue with scrotal elevation -f/u urology's recommendation DM Pt's glucose has been controlled, with latest bedside readings of 140-170s. -Continue insulin regimen
[2018-01-29 09:47] LABS: ABSOLUTE BASOPHIL COUNT 0 /CUMM (0.0-0.2); ABSOLUTE EOSINOPHIL COUNT 0.1 /CUMM (0.0-0.7); ABSOLUTE GRANULOCYTE CT 9.2 /CUMM (1.4-6.5); ABSOLUTE LYMPH COUNT 1.7 /CUMM (1.2-3.4); ABSOLUTE MONOCYTE COUNT 1.6 /CUMM (0.10-0.60); BASOPHIL % 0.1 % (0.0-2.0); EOSINOPHIL % 0.5 % (0-5); GRANULOCYTE % 73.6 % (42.2-75.2); HEMATOCRIT 28.9 % (42-52); MEAN CORPUSCULAR HGB 29.2 PG (27.0-31.0); MEAN CORPUSCULAR HGB CONC 32.4 G/DL (33.0-37.0); MEAN CORPUSCULAR VOLUME 90.2 FL (80.0-94.0); PLATELET COUNT 219 /CUMM (130-400); RBC DISTRIBUTION WIDTH 19.1 % (11.5-14.5); WHITE BLOOD CELL COUNT 12.5 /CUMM (4.8-10.8)
--- NOTE | 2018-01-29 10:31 | PN- Cardiology ---
Subjective Subjective: Breathing continues to slowly improve, but had a bad night with his RLS. Objective Vital Signs and I&Os Vital Signs Date Time Temp Pulse Resp B/P B/P Pulse O2 O2 Flow FiO2 Mean Ox Delivery Rate 01/29 0858 96 Nasal 2.0L Cannula 01/29 0804 102 160/80 01/29 0804 102 160/80 01/29 0640 97.5 102 20 160/80 99 Nasal Cannula 01/29 0000 Nasal 2.0L Cannula 01/28 2126 98.1 107 20 140/88 98 Nasal 2.0L Cannula 01/28 2106 96 Nasal 2.0L Cannula 01/28 2023 107 140/88 01/28 2004 98 Nasal 2.0L Cannula 01/28 1600 98.1 22 130/62 92 Room Air 01/28 1553 90 Nasal 2.0L Cannula 01/28 1200 97.6 100 20 130/70 96 Nasal 4.0L Cannula Intake & Output 01/29 1600 01/29 0800 01/29 0000 01/28 1600 01/28 0800 01/28 0000 Intake Total 240 110 780 600 500 Output Total 300 400 650 Balance 240 110 480 200 -150 Intake, IV 10 300 Intake, Oral 240 100 480 600 500 Number 0 1 Bowel Movements Output, Urine 300 400 650 Patient 184 lb 185 lb 176 lb 176 lb Weight Weight Bed scale Bed scale Measurement Method Physical Exam: Well-developed, overweight elderly male in no acute distress. HEENT: Normocephalic, EOMI, moist mucous membranes. Neck: No JVD, no bruits. Lungs: Decreased breath sounds bilaterally and crackles on the right. Heart: S1, S2 with soft grade 1/6 systolic murmur. No gallop or rub. Abdomen: Soft, nontender, positive bowel sounds. Extremities: No edema. Current Medications: Current Medications Sig/Casey Start time Last Medication Dose Route Stop Time Status Admin Acetaminophen 1,000 MG Q8P PRN 01/29 0730 AC PO Acetaminophen 650 MG Q6PRN PRN 01/24 1345 DC PO Acetaminophen 1,000 MG Q6P PRN 01/24 1345 DC 01/25 N/A 1 UNIT IV 1856 Albuterol Sulfate 3 ML EVERY 4 HRS/AWAKE 01/25 2000 AC 01/29 INH 0854 Aspirin 81 MG DAILY 01/24 1607 AC 01/29 PO 0806 Atorvastatin Calcium 20 MG 1700 01/25 1700 AC 01/28 PO 1710 Azithromycin 250 MG DAILY 01/29 0900 AC 01/29 PO 0923 Azithromycin 500 MG DAILY 01/25 0918 DC 01/28 Sodium Chloride 250 ML IV 0842 Baclofen 10 MG QPM 01/24 2100 AC 01/28 PO 2023 Budesonide/ 2 PUF BID 01/24 2100 AC 01/29 Formoterol Fumarate INH 0806 Ceftriaxone Sodium 1,000 MG DAILY 01/28 0900 AC 01/29 IV 0809 Clonazepam 0.5 MG BID PRN 01/29 0030 DC PO Clonazepam 1 MG BID PRN 01/28 1145 AC 01/28 PO 02/04 1144 2248 Clopidogrel Bisulfate 75 MG DAILY 01/24 1608 AC 01/29 PO 0805 Enoxaparin Sodium 40 MG DAILY 01/26 1347 AC 01/29 SC 0808 Ferrous Sulfate 325 MG DAILY 01/27 1329 AC 01/29 PO 0804 Gabapentin 600 MG Q8 01/24 1709 DC 01/27 PO 2121 Insulin Aspart 0 TIDAC 01/25 0800 AC 01/28 SC 1709 Ipratropium [place] 2.5 ML EVERY 4 HRS/AWAKE 01/24 2000 AC 01/29 INH 0854 Magnesium Oxide 400 MG DAILY 01/26 0900 AC 01/29 PO 0804 Melatonin 5 MG AT BEDTIME 01/25 2215 AC 01/28 PO 202 Metoprolol Tartrate 12.5 MG BID 01/26 2100 AC 01/29 PO 0804 Morphine Sulfate 1 MG Q8P PRN 01/24 1345 DC 01/26 IV 2012 Oxycodone HCl 5 MG Q6P PRN 01/29 0730 AC PO Oxycodone HCl 5 MG Q12P PRN 01/28 1145 DC 01/28 PO 2247 Prednisone 40 MG DAILY 01/29 0900 AC 01/29 PO 02/06 0859 0923 Prednisone 40 MG DAILY 01/27 1149 DC 01/28 PO 1011 Tamsulosin HCl 0.4 MG DAILY 01/25 0900 AC 01/29 PO 0804 Tiotropium [place] 1 PUF DAILY 01/24 1711 AC 01/29 INH 0806 Zolpidem Tartrate 10 MG QPM PRN 01/27 0015 AC 01/29 PO 0023 Results Last 48 Hrs of Labs/Mics: Laboratory Tests 01/29/18 0900: Anion Gap 14, Estimated GFR > 60, Glucose 107 H, Calcium 8.6, Phosphorus 3.3, Magnesium 2.0, Total Bilirubin 0.5, AST 26, ALT 45, Albumin 3.2 L, CBC w Diff NO MAN DIFF REQ, RBC 3.20 L, MCV 90.2, MCH 29.2, MCHC 32.4 L, RDW 19.1 H, MPV 10.0, Gran % 73.6, Lymphocytes % 13.3 L, Monocytes % 12.5 H, Eosinophils % 0.5 , Basophils % 0.1, Absolute Granulocytes 9.2 H, Absolute Lymphocytes 1.7, Absolute Monocytes 1.6 H, Absolute Eosinophils 0.1, Absolute Basophils 0 01/28/18 0320: Anion Gap 12, Estimated GFR > 60, Glucose 174 H, Calcium 8.3 L, Phosphorus 3.2 , Magnesium 2.1, Total Bilirubin 0.6, AST 30, ALT 41, Albumin 3.3 L, CBC w Diff MAN DIFF ORDERED, RBC 3.23 L, MCV 90.2, MCH 29.4, MCHC 32.5 L, RDW 19.3 H, MPV 9.8, Gran % 84.0 H, Lymphocytes % 7.1 L, Monocytes % 8.8, Eosinophils % 0, Basophils % 0.1, Absolute Granulocytes 10.7 H, Absolute Lymphocytes 0.9 L, Absolute Monocytes 1.1 H, Absolute Eosinophils 0, Absolute Basophils 0, Platelet Estimate ADEQUATE, Polychromasia 1+ Assessment/Plan Assessment/Plan [id number] w/ hx tob use, COPD w/ prev exacerbations, prev PNA, HTN, HLD, vasc dz (s/p "angioplasty" 12/26/2017 complicated by: arterial laceration req subsequent surgery, AECOPD, PNA, etc.), & poss prev AF w/o AC who we were asked to evaluate and help manage in regard to c/o SOB, borderline ECGs, CXR c/w PNA, & modestly pos troponin I on the basis of a type II [place] 2/2 oxygen supply/demand mismatch, who became hemodynamically unstable prompting ICU transfer w/ overall improved status & transfer to 2 No. He does have risk equivalents (vasc dz, DM) & multiple RFs for CAD (HTN, HLD, etc.) so plan for further OP eval/mgt to exclude significant CAD. He has had no evidence of AF during this admission. Could consider placement of a [employer] LINQ system to further evaluate for PAF and need for AC, but patient not interested in pursuing this at this time. Recommendations: * Continue mgt of HAPNA/AECOPD with O2/TRC, Abx, steroids etc. * Continue treatment of RLS. * Antiplatelet therapy for at risk status for CAD. * Outpatient CAD eval when appropriate. * Leave open option for LINQ recorder to further evaluate for PAF and need for AC. * DVT prophylaxis. Continue telemetry? Not applicable (On 2 No.)
[2018-01-29 14:48] VITALS: BP 160/88
[2018-01-29 21:46] VITALS: BP 132/80
[2018-01-30 06:00] VITALS: BP 149/99
--- NOTE | 2018-01-30 07:30 | PN- Housestaff ---
See Addendum Subjective Follow-up For: Pneumonia Subjective: No acute events overnight, afebrile. Patient has no complaint of, denies fever, night sweats, chills. Patient states he feels ready to go home, is feeling much better. Review of Systems Constitutional: Reports: see HPI. Objective Last 24 Hrs of Vital Signs/I&O Vital Signs Date Time Temp Pulse Resp B/P B/P Pulse O2 O2 Flow FiO2 Mean Ox Delivery Rate 01/29 2146 97.8 97 18 132/80 91 Room Air 01/29 2033 97 132/80 01/29 1805 96 Nasal 2.0L Cannula 01/29 1600 Room Air 01/29 1448 97.2 102 20 160/88 100 Aerosol 7.0L Mask 01/29 1348 94 Nasal 2.0L Cannula 01/29 1205 20 92 Room Air 01/29 1204 18 95 Room Air 01/29 1204 18 95 Nasal 3.0L Cannula 01/29 0858 96 Nasal 2.0L Cannula 01/29 0804 102 160/80 01/29 0804 102 160/80 01/29 0800 95 Nasal 3.0L Cannula Intake & Output 01/30 0800 01/30 0000 01/29 1600 Intake Total 220 210 460 Output Total Balance 220 210 460 Intake, IV 20 10 0 Intake, Oral 200 200 460 Patient 184 lb Weight Weight Bed scale Measurement Method Physical Exam General Appearance: Alert, Oriented X3, Cooperative Skin: No Rashes Neck: Supple Cardiovascular: Regular Rate, Normal S1, Normal S2 Lungs: Clear to Auscultation, Normal Air Movement Abdomen: Normal Bowel Sounds, Soft, No Tenderness Neurological: Normal Gait, Normal Speech, Strength at 5/5 X4 Ext Extremities: No Cyanosis, No Edema, Normal Pulses Reproductive (MALE) Edematous Scrotum Current Medications: Current Medications Sig/Casey Start time Last Medication Dose Route Stop Time Status Admin Acetaminophen 1,000 MG Q8P PRN 01/29 0730 AC PO Albuterol Sulfate 3 ML EVERY 4 HRS/AWAKE 01/24 2000 AC 01/29 INH 1805 Aspirin 81 MG DAILY 01/24 1607 AC 01/29 PO 0806 Atorvastatin Calcium 20 MG 1700 / 1700 AC 01/29 PO 1823 Azithromycin 250 MG DAILY 01/29 0900 AC 01/29 PO 0923 Baclofen 10 MG ONE TIME ONE 01/29 1500 DC 07/18 PO 01/29 1501 1510 Baclofen 10 MG QPM 01/24 2100 AC 01/29 PO 203 Budesonide/ 2 PUF BID 01/24 2100 AC 01/29 Formoterol Fumarate INH 2033 Ceftriaxone Sodium 1,000 MG DAILY 01/28 0900 AC 01/29 IV 0809 Clonazepam 1 MG BID PRN 01/28 1145 AC 01/29 PO 02/04 1144 1448 Clopidogrel Bisulfate 75 MG DAILY 01/24 1608 AC 01/29 PO 0805 Enoxaparin Sodium 40 MG DAILY 01/26 1347 AC 01/29 SC 0808 Ferrous Sulfate 325 MG DAILY 01/27 1329 AC 01/29 PO 0804 Hydrochlorothiazide 25 MG DAILY 01/30 0900 AC PO Insulin Aspart 0 TIDAC 01/25 0800 AC 01/28 SC 1709 Ipratropium Weott 2.5 ML EVERY 4 HRS/AWAKE 01/24 2000 AC 01/29 INH 1805 Losartan Potassium 50 MG DAILY 01/30 0900 AC PO Magnesium Oxide 400 MG DAILY 01/26 0900 AC 01/29 PO 0804 Melatonin 5 MG AT BEDTIME 01/25 2215 AC 01/29 PO 2032 Metoprolol Tartrate 12.5 MG BID 01/26 2100 AC 01/29 PO 203 Omeprazole 40 MG DAILY AC 01/30 0700 AC 01/30 PO 0609 Oxycodone HCl 5 MG Q6P PRN 01/29 0730 AC 01/30 PO 0609 Prednisone 40 MG DAILY 01/29 0900 AC 01/29 PO 02/06 0859 0923 Ropinirole HCl 2 MG AT BEDTIME 01/29 2100 AC 01/29 PO 203 Ropinirole HCl 1 MG ONE TIME ONE 01/29 1500 DC 01/29 PO 01/29 1501 1510 Tamsulosin HCl 0.4 MG DAILY 01/25 0900 AC 01/29 PO 0804 Tiotropium Weott 1 PUF DAILY 01/24 1711 AC 01/29 INH 0806 Trazodone HCl 100 MG AT BEDTIME 01/29 2100 AC 01/29 PO 203 Trazodone HCl 50 MG ONE TIME ONE 01/29 1500 DC 01/29 PO 01/29 1501 1510 Zolpidem Tartrate 10 MG QPM PRN 01/27 0015 AC 01/29 PO 2033 Last 24 Hrs of Lab/Gualberto Results Last 24 Hrs of Labs/Mics: Laboratory Tests 01/29/18 0900: Anion Gap 14, Estimated GFR > 60, Glucose 107 H, Calcium 8.6, Phosphorus 3.3, Magnesium 2.0, Total Bilirubin 0.5, AST 26, ALT 45, Albumin 3.2 L, CBC w Diff NO MAN DIFF REQ, RBC 3.20 L, MCV 90.2, MCH 29.2, MCHC 32.4 L, RDW 19.1 H, MPV 10.0, Gran % 73.6, Lymphocytes % 13.3 L, Monocytes % 12.5 H, Eosinophils % 0.5 , Basophils % 0.1, Absolute Granulocytes 9.2 H, Absolute Lymphocytes 1.7, Absolute Monocytes 1.6 H, Absolute Eosinophils 0.1, Absolute Basophils 0 Assessment/Plan Assessment: Mr. Tolentino is a 72 y/o M with a significant PMH of COPD, PAD, DM, HTN and HLD who arrived to the ED complaining of shortness of breath, chest pain and productive cough. Of note the pt has a prior hospitalization in [place] for lower extremity angioplasty, with subsequent scrotal swelling. Patient was in ICU, transferred to general medicine after stabilization of blood pressures. Problem list: 1. Pneumonia 2. Septic Shock 3. Type II Myocardial Infarction 4. Scrotal edema with Varicocele 5. Anemia 6. Hypertension 7. Hyperlipidemia 8. COPD 9. Restless Syndrome #Pneumonia: Most likely associated with recent hospitalization in [place]. Due to Gram positive bacteria. Strep pneumo and Legionella antigen is negative. Plan: -Azithromycin day 2/5 -IV Ceftriaxone day 3 #Septic Shock: 2/2 pneumonia resolved #Type II Myocardial infarction: Tropinin 0.63 on 01/27/18. Patient has multiple RF for ACS. plan: - Cardiology is following, input is highly appreciated - Plavix 75mg - Aspirin 81mg #Scrotal Swelling with Left sided Varicocele plan: - Urology is following patient, reccomend to keep scrotum elevated and padding. Input is highly appreciated #Anemia: Low IRON and TIBC, evelated Ferritin- Anemia of Chronic disease. No active bleeding, patient is asymptomatic plan - continue to monitor patient #hypertension plan: Hydrocholrothiazide 25mg Losartan 50mg Metoprolol 12.5 BID #Hyperlipidemia Plan -20mg #COPD: plan - TRC - Nebs #Restless Leg Syndrome plan - Ropinirole 2mg Plan to discharge patient home today, will discharge with Azithromycin PO 250mg #3. 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 Problem List: 1. Pneumonia Pain Ratin Pain Location: n/a Pain Goal: Remain pain free Pain Plan: tylenol Tomorrow's Labs & Rationales: n/a
[2018-01-30] MEDS ORDERED: AZITHROMYCIN250 M1 PO ×3 (08:48→10:16)
[2018-01-30 09:30] VITALS: BP 140/84
--- NOTE | 2018-01-30 09:56 | Patient Discharge Instructions ---
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 Diet Continue normal diet: Yes Recommended Diet: Heart Healthy Activity Full Activity/No Limits: Yes Activity Self Limited: No Acute Coronary Syndrome Inclusion Criteria At DC or during hospital stay patient has or had the following: ACS DIAGNOSIS No Discharge Core Measures Meds if any: Prescribed or Continued at Discharge Meds if any: NOT Prescribed or Continued at Discharge Congestive Heart Failure Inclusion Criteria At DC or during hospital stay patient has or had the following: CHF DIAGNOSIS No Discharge Core Measures Meds if any: Prescribed or Continued at Discharge Meds if any: NOT Prescribed or Continued at Discharge Cerebrovascular accident Inclusion Criteria At DC or during hospital stay patient has or had the following: CVA/TIA Diagnosis No Discharge Core Measures Meds if any: Prescribed or Continued at Discharge Meds if any: NOT Prescribed or Continued at Discharge Venous thromboembolism Inclusion Criteria VTE Diagnosis No VTE Type NONE VTE Confirmed by (Test) NONE Discharge Core Measures - Per Current guidelines, there needs to be overlap - treatment for the first 5 days of Warfarin therapy. - If discharged on Warfarin prior to 5 days of - overlap therapy, the patient will need to be - assessed for post discharge needs including - *Post discharge parental anticoagulation - *Warfarin and/or parental anticoagulation education - *Follow up date to check INR post discharge At least 5 days overlap therapy as Inpatient Yes Meds if any: Prescribed or Continued at Discharge Note: Overlap Therapy is Warfarin and Anticoagulant Meds if any: NOT Prescribed or Continued at Discharge
[2018-01-30 10:00] VITALS: BP 140/84
[2018-01-30] MEDS ORDERED: ALBUTEROL0.63 MG/1 INH/SOL (11:03)
--- NOTE | 2018-01-30 17:23 | Discharge Summary ---
Hospital Course Allergies: Coded Allergies: No Known Allergies (01/24/18) Discharge Instructions Medications at Discharge Discharge Medications: Continue taking these medications: Zolpidem Tartrate (Zolpidem Tartrate) 10 MG TABLET 10 Milligram ORAL Every night as needed as needed for SLEEP Qty = 30 Comments: Last Taken: 01/29/18 Time: 830 PM Tiotropium Nocona (Spiriva Respimat) 2.5 MCG/ACTUATION MIST.INHAL 1 PUFF ORAL DAILY as needed for SHORTNESS OF BREATH Comments: Last Taken: 01/30/18 Time: 930 AM Gabapentin (Gabapentin) 600 MG TABLET 1 Tablet ORAL THREE TIMES DAILY Qty = 270 Comments: Last Taken: 01/27/18 Time: 930 PM Metformin HCl (Metformin HCl) 500 MG TABLET 500 Milligram ORAL TWICE DAILY Qty = 180 Comments: NOT TAKEN IN HOSPITAL Pantoprazole Sodium (Pantoprazole Sodium) 40 MG TABLET.DR 40 Milligram ORAL DAILY Qty = 90 Comments: Last Taken: 01/30/18 Time: 6 AM Rosuvastatin Calcium (Crestor) 10 MG TABLET 10 Milligram ORAL Three times a week Comments: NOT GIVEN IN HOSPITAL Aspirin (Aspirin*) 81 MG TAB.CHEW 81 Milligram ORAL DAILY Comments: Last Taken: 01/30/18 Time: 930 AM Clopidogrel Bisulfate (Plavix) 75 MG TABLET 1 Tablet ORAL DAILY Comments: Last Taken: 01/30/18 Time: 930 AM Prednisone (Prednisone) 10 MG TABLET 1 Tablet ORAL As Directed Qty = 30 Instructions: On Take 07/11/16-07/13/16 40 MG 07/14/16-07/16/16 30 MG 07/17/16-07/19/16 20 MG 07/20/16-07/22/16 10 MG Then Stop Comments: NO TAKEN IN HOSPITAL Albuterol Sulfate (Albuterol Sulfate) 2.5 MG/3 ML (0.083 %) VIAL.NEB 1 Vial Inhale Solution THREE TIMES DAILY as needed for copd Qty = 50 Comments: Last Taken: 01/30/18 Time: 12 PM Valsartan/Hydrochlorothiazide (Valsartan-Hctz 320-25 MG Tab) 320 MG-25 MG TABLET 1 Tablet ORAL DAILY Qty = 90 Comments: NOT GIVEN IN HOSPITAL Ferrous Sulfate (Ferrous Sulfate) 325 MG (65 MG IRON) TABLET 1 Tablet ORAL DAILY Comments: Last Taken: 01/30/18 Time: 930 AM Baclofen (Baclofen) 10 MG TABLET 1 Tablet ORAL Every night Comments: Last Taken: 01/29/18 Time: 830 PM Clonazepam (Clonazepam) 1 MG TABLET 1 Tablet ORAL 2 x Daily as needed as needed for ANXIETY Comments: Last Taken: 01/30/18 Time: 11 AM Tamsulosin HCl (Tamsulosin HCl) 0.4 MG CAP.ER.24H 1 Capsule ORAL DAILY Comments: Last Taken: 01/30/18 Time: 930 AM Ipratropium Nocona (Atrovent Hfa) 17 MCG/ACTUATION HFA.AER.AD 2 PUFF ORAL 4 TIMES A DAY Qty = 13 Comments: Last Taken: 01/30/18 Time: 12 PM Budesonide/Formoterol Fumarate (Symbicort 160-4.5 Mcg Inhaler) 160 MCG-4.5 MCG/ ACTUATION HFA.AER.AD 2 Puff Inhale through mouth TWICE DAILY Qty = 10 Comments: Last Taken: 01/30/18 Time: 930 AM Start taking the following new medications: Azithromycin (Azithromycin) 250 MG TABLET 250 Milligram ORAL DAILY Qty = 3 No Refills Instructions: . Comments: Last Taken: 01/30/18 Time: 930 AM Albuterol Sulfate (Albuterol Sulfate) 0.63 MG/3 ML VIAL.NEB 1 Vial Inhale Solution 4 TIMES A DAY as needed for COPD Qty = 50 No Refills Comments: Last Taken: 01/30/18 Time: 12 PM
== END 2018-01-30 13:27 | DRG 871 ==
LOC: ERH 10:54 → 2NB 13:17 → CRI 13:17 → ERHI 13:17 → ENRESERV 13:58 → 1NO 16:54 → CRI 21:55 → ENTRNSPT 01-28 19:47 → 2NB 01-28 20:04 → EDTRNSPTSTS 01-28 20:09 → EDTRNSPT 01-28 20:09 → CMPTRNSPT 01-28 20:13 → 2NB 01-29 08:22 → ENPENDDIS 01-30 10:40 → ENTRNSPT 01-30 13:16 → EDTRNSPTSTS 01-30 13:19 → EDTRNSPT 01-30 13:19 → 2NB 01-30 13:27 → CMPTRNSPT 01-30 13:29
PROVIDERS: Internal Medicine; Internal Medicine Pulmonary Disease; Physician Assistant; Preventive Medicine Public Health & General Preventive Medicine; Student in an Organized Health Care Education/Training Program
PROC: 02HV33Z Insertion of Infusion Device into Superior Vena Cava, Percutaneous Approach (ICD-10-PCS; principal; 2018-01-24)
DX: A41.9 Sepsis, unspecified organism (principal); I21.A1 Myocardial infarction type 2; R65.21 Severe sepsis with septic shock; J96.01 Acute respiratory failure with hypoxia; J44.1 Chronic obstructive pulmonary disease with (acute) exacerbation; N99.841 Postprocedural hematoma of a genitourinary system organ or structure following other procedure; D64.9 Anemia, unspecified; E11.51 Type 2 diabetes mellitus with diabetic peripheral angiopathy without gangrene; E78.5 Hyperlipidemia, unspecified; Z79.84 Long term (current) use of oral hypoglycemic drugs; G25.81 Restless legs syndrome; N40.0 Benign prostatic hyperplasia without lower urinary tract symptoms; I86.1 Scrotal varices; Y83.8 Other surgical procedures as the cause of abnormal reaction of the patient, or of later complication, without mention of misadventure at the time of the procedure; I25.10 Atherosclerotic heart disease of native coronary artery without angina pectoris; N28.9 Disorder of kidney and ureter, unspecified; Z87.891 Personal history of nicotine dependence; Z85.038 Personal history of other malignant neoplasm of large intestine; Z90.49 Acquired absence of other specified parts of digestive tract
CPT/HCPCS: 2NBP; 87184; CCU; 36415; 36592; 71045; 71046; 82436; 87040; 87070; 87071; 87086; 87147; 87449; 87450; 93005; 93010; 93306; 96365; 96375; 99291; J0131; J0456; J0696; J0713; J1644; J1650; J2930; J3370; J3490; J7040